=== PATIENT | male | born 1980 | race Caucasian/White ===

== ENCOUNTER 2016-08-19 17:24 | Inpatient (IN) | payer OTHER ==
[~2016-08-19] VITALS: Ht 177.8 cm; Wt 98.9 kg
[~2016-08-19 17:24] MED LIST: DESFLURANE 15 MIN ONE
[2016-08-19 18:47] VITALS: BP 101/67; PULSE 127; RESP 34
[2016-08-19] MEDS ORDERED: morphine 2 MG INJ IV ONE (19:00)
[2016-08-19] MEDS ORDERED: ONDANSETRON 4 MG INJ IV PRN (19:30)
[2016-08-19] MEDS ORDERED: NACL 0.9% 3 ML SYG IV SCH (19:30)
[2016-08-19] MEDS: DEXTROSE 5%-0.45% NACL 1,000 ML IV SCH (19:51)
[2016-08-19 20:00] VITALS: BP 101/64; RESP 20; Ht 177.8 cm; Wt 98.9 kg
[2016-08-19] MEDS: HYDROCODONE/APAP (7.5/325) TAB PO PRN (21:37)
[2016-08-19] MEDS: morphine 2 MG INJ IV PRN (22:48)
[2016-08-20] VITALS (13 sets, daily range): BP systolic 108–201; BP diastolic 53–127; PULSE 133–158; RESP 15–29
--- NOTE | 2016-08-20 03:17 | HP ---
DATE OF ADMISSION: 08/19/2016 The patient was seen and examined by me at 9:45 p.m. on 08/20/2014. CHIEF COMPLAINT: This is a 36-year-old male transferred from outside hospital for abdominal pain an d pancreatitis, nausea, vomiting. HISTORY OF PRESENT ILLNESS: A 36-year-old male with past medical history of marijuana use and prior substance abuse, questionable cirrhosis with prior ascites who presented to outside hospital at [facility] earlier today with complaints of epigastric pain. He states that pain has been radiating aroun d his abdomen, his chest and to his back and he has had it for the last couple of weeks. He has had nausea and vomiting, questionable bloody vomiting, black in color mixed with food, denies any lower GI bleeding, no fevers or chills. No shortness of breath, no chest pain. When he presented to the outside hospital, he had a CT scan of abdomen and pelvis performed that showed signs of pancreatiti s and his lipase was elevated as well and there was also findings of minimal diverticulosis with asc ites and the stomach was distended with fluid. The patient was given pain medications before being transferred over here. PAST MEDICAL HISTORY: As stated above. ALLERGIES: NO KNOWN DRUG ALLERGIES. MEDICATIONS AT HOME: 1. Pepcid 40 mg. 1. [place] 5/325. 3. Zofran 4 mg. PAST SURGICAL HISTORY: Unknown. SOCIAL HISTORY: Former history of drug abuse including methamphetamine, cocaine, and crack and also smokes cigarettes daily and also smokes marijuana daily. He apparently drinks occasionally as well . FAMILY HISTORY: Unknown. PHYSICAL EXAMINATION: VITAL SIGNS: Today, T-max 98.2, pulse 119, respirations 23, blood pressure 120/97, saturating at 98 % on room air. GENERAL: The patient is lying in bed in no acute distress. HEENT: Pupils equal, round, react to light. Extraocular muscles intact. NECK: Supple, no thyromegaly. LUNGS: Clear to auscultation bilaterally. CARDIOVASCULAR: S1, S2 heard. No rubs or gallops. ABDOMEN: Tenderness to palpation in epigastric area. There is some guarding but no rebound, nondis tended. Normal bowel sounds. MUSCULOSKELETAL: No lower extremity edema bilaterally. NEUROLOGIC: No focal deficits. LABORATORIES: The patient had a CBC performed with incomplete data. The hemoglobin was 12.6, hemat ocrit 36.8, platelets of 480. On his comprehensive metabolic panel, there was an elevated lipase le estrada and the glucose was 137 and the creatinine was 0.91. WBC was 11.4. LFTs were normal. IMAGING: Again, CT of abdomen and pelvis showed a small hiatal hernia, stomach was distended with f luid. There was ascites in the abdomen and pelvis, and minimal diverticulosis and symptom cause cou ld have an element of pancreatitis in it. ASSESSMENT AND PLAN: A 36-year-old male coming in with abdominal pain and vomiting and nausea with signs of pancreatitis and possible cirrhosis with ascites. 1. Abdominal pain again secondary to pancreatitis and possible cirrhosis with ascites. Will keep t he patient n.p.o., give him IV fluids, give him antiemetic medications as well. Get a gastroenterol ogy consult. Monitor vital signs very carefully. 2. For history of substance abuse, will check an ethanol level, drug screen, monitor for signs of d elirium tremens. Continue IV fluids as well. 2. Smoking history. Need to educate the patient about smoking cessation. 3. Gastrointestinal prophylaxis, proton pump inhibitor. 4. Deep venous thrombosis prophylaxis. We will add SCDs. Dictated By: WILLIAM ESTEVES Conf#: [id number] DID#: [id number]
[2016-08-20] MEDS: DEXTROSE 5%-0.45% NACL 1,000 ML IV SCH ×2 (03:19→05:54)
[2016-08-20] MEDS: CHLORDIAZEPOXIDE 25 MG CAP PO SCH ×3 (04:21→23:08)
[2016-08-20] MEDS: morphine 2 MG INJ IV PRN (04:38)
[2016-08-20 05:43] LABS: ADD SCAN DIFF NO
[2016-08-20 05:51] LABS: ABNORMAL IP MESSAGE 1; BASOPHILS % 0.1 % (0.0-2.0); HEMATOCRIT 50.2 % (42.0-52.0); HEMOGLOBIN 17.2 g/dl (14.0-18.0); LYMPHOCYTES # 0.8 10^3/ul (0.8-2.9); MEAN CORPUSCULAR HEMOGLOBIN 30.9 pg (29.0-33.0); MEAN CORPUSCULAR HGB CONC 34.3 g/dl (32.0-37.0); MEAN CORPUSCULAR VOLUME 90.3 fl (82.0-101.0); MONOCYTE # 0.5 10^3/ul (0.3-0.9); NEUTROPHIL # 14.4 10^3/ul (1.6-7.5); PLATELET COUNT 678 10^3/UL (140-415); RED BLOOD COUNT 5.56 10^6/ul (4.70-6.10); RED CELL DISTRIBUTION WIDTH 13.3 % (11.5-14.5); WHITE BLOOD COUNT 15.8 10^3/ul (4.8-10.8)
[2016-08-20] MEDS ORDERED: PANTOPRAZOLE 40 MG INJ IV SCH (06:00)
[2016-08-20 06:11] LABS: ALBUMIN 3.9 g/dl (3.3-4.9)
[2016-08-20 06:12] LABS: POTASSIUM 5.8 mmol/L (3.5-5.1)
[2016-08-20 06:14] LABS: ALBUMIN/GLOBULIN RATIO 1.14; BILIRUBIN,INDIRECT 0.6 mg/dl (0-1.1); BILIRUBIN,TOTAL 0.6 mg/dl (0.2-1.3); CREATININE 3.73 mg/dl (0.61-1.24); TOTAL PROTEIN 7.3 g/dl (6.1-8.1)
[2016-08-20 06:15] LABS: CALCIUM 9.1 mg/dl (8.4-10.2); CHOL/HDL RATIO 1.5 RATIO; MAGNESIUM 2.8 mg/dl (1.7-2.5)
[2016-08-20 06:22] LABS: T3 UPTAKE 37.7 % (23.5-40.5)
[2016-08-20 06:28] LABS: NEUTROPHILS % 91.6 % (39.0-77.0)
--- NOTE | 2016-08-20 08:31 | CONS ---
Date/Time of Note Date/Time of Note DATE: 08/20/16 TIME: 08:22 Assessment/Plan Assessment/Plan Additional Assessment/Plan Abdominal pain/nausea/vomiting Coffee-ground emesis Evaluate GI bleed versus chronic iron deficiency vs other etiology Stool OB, if positive strongly recommend EGD Monitor H&H every 8 hours, transfuse 2 units for hemoglobin less than 7.[address] abdomen: Completed at [facility]. Notes mild diverticulosis and minimal ascites. Continue PPI twice daily EGD tomorrow, pt advised of R/B/A of procedure and provides informed consent to proceed Acute kidney injury Nephrology follow Avoid nephrotoxic medication Tobacco use Management per Primary Encourage abstinence Marijuana use Management per Primary Encourage moderation Further recommendations depend on clinical course Consultation Date/Type/Reason Admit Date/Time Aug 19, 2016 at 18:21 Type of Consultation: Gastroenterology Reason for Consultation Abdominal pain Hx of Present Illness Mr. Ismael Goldman is a 36 YO M that originally presented to [facility] with complaints of epigastric pain, nausea, vomiting with coffee ground emesis, melena stools, chest pain, and dehydration x 2 weeks. He states that symptoms started to worsen yesterday to the point it interrupted his sleep and he was short of breath. He reports intermittent chills x 1 day. Pt reports using an unknown OTC pain reliever x 2 weeks ago. Pt denies diarrhea, new prescribed medication, sick contacts, travel outside [place], and previous episode. Mr. Goldman smokes 1 pack a day of tobacco and smokes marijuana once every two to three weeks. Pt denies EtoH consumption. Pt denies any comorbid conditions but also reports not being evaluated by a PCP. Pt reports being a heavy drinker but has been sober for the last 2 - 3 years. Social History Alcohol Use: sober (For the last 2-3 years) Smoking Status: Current every day smoker Drug Use: marijuana (Once every 2-3 week) Exam/Review of Systems Vital Signs Vitals Vital Signs Date Time Temp Pulse Resp B/P Pulse Ox O2 Delivery O2 Flow Rate FiO2 08/20/16 07:57 97.7 127 24 112/53 94 08/19/16 18:47 Room Air Intake and Output 08/19/16 08/19/16 08/20/16 15:00 23:00 07:00 Intake Total 1000 ml Output Total 0 ml Balance 1000 ml Exam Constitutional: alert, oriented, well developed Psych: nl mood/affect Head: normocephalic Eyes: EOMI, nl conjunctiva, nl lids ENMT: nl external ears & nose, nl lips & teeth, nl nasal mucosa & septum Respiratory: clear to auscultation, normal air movement Cardiovascular: regular rate and rhythm Gastrointestinal: soft, diffusely tender Musculoskeletal: nl extremities to inspection Neurological: COMMISSIONING SPECIALIST II-XII intact Results Result Diagram: 08/20/1652208/20/16522 Results 24 hrs Laboratory Tests Test 08/20/16 05:23 Alanine Aminotransferase (ALT/SGPT) 21 Albumin 3.9 Albumin/Globulin Ratio 1.14 Alkaline Phosphatase 66 Anion Gap 21 H Aspartate Amino Transf (AST/SGOT) 22 Basophils # 0.0 Basophils % 0.1 Blood Urea Nitrogen 28 H Calcium Level 9.1 Carbon Dioxide Level 22 Chloride Level 100 Cholesterol Level 80 L Cholesterol/HDL Ratio 1.5 Creatinine 3.73 H Direct Bilirubin 0.00 Eosinophils # 0.0 Eosinophils % 0.0 Ethyl Alcohol Level < 10.0 Free Thyroxine Index 3.73 Globulin 3.40 H Glucose Level 132 HDL Cholesterol 52 Hematocrit 50.2 Hemoglobin 17.2 Hemoglobin A1c 5.2 Indirect Bilirubin 0.6 LDL Cholesterol, Calculated 22 Lipase < 10 L Lymphocytes # 0.8 Lymphocytes % 5.0 L Magnesium Level 2.8 H Mean Corpuscular Hemoglobin 30.9 Mean Corpuscular Hemoglobin Concent 34.3 Mean Corpuscular Volume 90.3 Mean Platelet Volume 10.0 Monocytes # 0.5 Monocytes % 3.0 Neutrophils # 14.4 H Neutrophils % 91.6 H Nucleated Red Blood Cells # 0.0 Nucleated Red Blood Cells % 0.0 Phosphorus Level 4.0 Platelet Count 678 H Potassium Level 5.8 H Red Blood Count 5.56 Red Cell Distribution Width 13.3 Sodium Level 137 Thyroxine (T4) 9.9 Total Bilirubin 0.6 Total Protein 7.3 Triglycerides Level 29 Triiodothyronine (T3) Uptake 37.7 White Blood Count 15.8 H Medications Medications Current Medications Dextrose/Sodium Chloride (D5-1/2ns) 1,000 ml @ 125 mls/hr Q8H IV Last administered on 08/20/16t 05:54; Admin Dose 125 MLS/HR; Start 08/19/16 at 19:19 Ondansetron HCl (Zofran Inj) 4 mg Q6H PRN IV NAUSEA AND/OR VOMITING; Start at 19:30 Morphine Sulfate (morphine) 2 mg Q4H PRN IV SEVERE PAIN LEVEL 7-10 Last administered on 08/20/16 04:38; Admin Dose 2 MG; Start 08/19/16 at 19:30 Pantoprazole (Protonix Iv) 40 mg DAILY@06 IV Last administered on 08/20/16 05: 53; Admin Dose 40 MG; Start 08/20/16 at 06:00 Acetaminophen/ Hydrocodone Bitart ([place] (7.5-325)) 1 tab Q6H PRN PO PAIN Last administered on 08/19/16 21:37; Admin Dose 1 TAB; Start 08/19/16 at 21:30 Chlordiazepoxide 25 mg 25 mg TID PO Last administered on 08/20/16 04:21; Admin Dose 25 MG; Start 08/20/16 at 04:30 Multivitamins/ Thiamine HCl/ Folic Acid/Sodium Chloride (Mvi-12 Adult/ Vitamin B1/Folic Acid/NS) 1,011.2 ml @ 125 mls/ hr DAILY@09 IVPB ; Start 08/20/16 at 09 :00 MARILYN TA MD Aug 20, 2016 08:31
[2016-08-20] MEDS: HYDROCODONE/APAP (7.5/325) TAB PO PRN (09:34)
[2016-08-20] MEDS: SOD CHLORIDE 0.9% 1,000 ML IV SCH ×2 (10:00→18:00)
--- NOTE | 2016-08-20 10:09 | RADRPT ---
PROCEDURE: Retroperitoneal US. CLINICAL INDICATION: Renal insufficiency TECHNIQUE: Multiple sonographic images of the kidneys and retroperitoneum were obtained. The imag es were reviewed on a PACS workstation. COMPARISON: No prior studies are available for comparison. FINDINGS: The kidneys are normal in size, contour, cortical thickness. There is slightly increased echogenicity of the kidneys. There is a small amount of ascites. The right kidney measures 9.4 cm. The left kidney measures 9.8 cm. No kidney stones are visualized. There is no evidence for hydronephrosis. The urinary bladder is not visualized. RPTAT: AA IMPRESSION: Slightly echogenic kidneys, consistent with medical renal disease. No evidence of hydronephrosis. Small amount of ascites. .Wm Phelan MD, Date Time Electronically viewed and signed by .Wm Phelan MD, MD on 08/20/2016 10:09 .S/
--- NOTE | 2016-08-20 10:16 | CONS ---
DATE OF ADMISSION: 08/19/2016 DATE OF CONSULTATION: 08/20/2016 TYPE OF CONSULTATION: Nephrology. REASON FOR CONSULTATION: Acute kidney injury. REQUESTING PHYSICIAN: Tomas Wyatt MD HISTORY OF PRESENT ILLNESS: This is a 36-year-old male with a past medical history of polysubstance abuse, marijuana use, history of heavy alcohol use, who was transferred to [facility] from [place] with episodes of abdominal pain. The patient states that his history began approx imately 2 weeks ago when he started having abdominal pain with intermittent episodes of vomiting ass ociated with some diarrhea. The patient felt that he was having food poisoning. The patient also n oted that his vomitus was black and he denied any complaint of black stools. The patient during thi s time was having drug abuse including possible cocaine and methamphetamine. The patient is not ful ly aware of all substances he was taking. He denies having IV drug use. During this course of the last 2 weeks, the patient's abdominal pain, nausea and vomiting progressively worsened. As a result , he came to [facility]. At [place], the patient was noted to be tachycardic and diapho retic. He had a CT scan of the abdomen and pelvis which showed findings of distended fluid in the a bdomen, unremarkable liver, unremarkable gallbladder, kidneys and adrenal glands appeared normal. S mall hiatal hernia noted and ascites in the abdomen and pelvis. The patient after given IV fluids w as transferred to [facility]. Overnight, the patient has remained diaphoretic, co ntinues to have intermittent episodes of abdominal pain. In terms of the patient's renal history, the patient's initial creatinine at outside hospital at [facility] was noted to be 0.9 mg/dL. The patient's labs this morning showed a creatinine of 3.73 mg/dL a nd potassium 5.8. The patient is also noted to have minimal urinary output over the last 12 hours. The patient denies any frothy urine, any rashes, any petechiae. Denies any muscle pain. As stated above, the patient does complain of about emesis, questionable hematemesis and dark stools. PAST MEDICAL HISTORY: History of polysubstance abuse. ALLERGIES: NO KNOWN DRUG ALLERGIES. MEDICATIONS: The patient's medications are: 1. Pepcid. 2. [place]. PAST SURGICAL HISTORY: None. SOCIAL HISTORY: Positive for methamphetamine, cocaine, crack use. FAMILY HISTORY: Unknown. REVIEW OF SYSTEMS: A 14-point review of systems was conducted. Pertinent positives in the HPI, oth erwise negative. PHYSICAL EXAMINATION: VITAL SIGNS: Blood pressure 112/53, respirations 24, pulse 127, temperature 97.7. HEENT: Head is normocephalic. Pupils are reactive to light. NECK: Supple. HEART: Tachycardic. LUNGS: Show diminished breath sounds at base. ABDOMEN: Soft, positive tenderness to palpation, positive rebound, guarding. EXTREMITIES: Negative for clubbing, cyanosis. No edema. DERMATOLOGIC: No rashes. MUSCULOSKELETAL: No joint effusions. NEUROLOGIC: No focal deficits. LABORATORY DATA: Shows sodium 137, potassium 5.8, chloride 100, BUN 28, creatinine 3.73, magnesium 2.8. White count 15.8, hemoglobin 17.2, hematocrit 40.2, platelet count 678. Serum alcohol levels are negative. ASSESSMENT AND PLAN: This is a 36-year-old male who presents with: 1. Oligoanuric acute kidney injury with previous baseline creatinine of 0.9 mg/dL. Etiology of acu te kidney injury is unclear, worrisome for possible acute tubular necrosis due to nephrotoxic exposu re from cocaine, methamphetamine. Other possibilities need to be ruled out is obstruction with chec екатерина a stat renal ultrasound. We will check a CK level to rule out rhabdomyolysis. The possibility of an acute glomerulonephritis is also a consideration given patient's recent history of diarrhea, nausea, vomiting. Plan is to do a full evaluation. We will check a UA with microanalysis. We will check urine electrolytes. We will check a stat renal ultrasound to rule out obstruction. We will place a Miranda catheter. If patient has any evidence of an active sediment, we will check serologies . At this point, we will aggressively hydrate the patient with normal saline at 125 mL/hour. We wi ll repeat a renal panel. If the patient's renal panel should further decline and/or if the hyperkal emia should worsen, would consider starting urgent hemodialysis for solute clearance. We will cabrera nue to monitor I's and O's closely. We will also check a urine tox screen. Otherwise, continue sup portive care, renally dose meds, avoid nephrotoxins. 2. Hyperkalemia. Etiology is likely secondary to acute kidney injury. Plan at this point is to re peat a BMP. If the patient remains hyperkalemic, we will consider starting renal replacement therap y. We will otherwise give temporizing measures of calcium gluconate, dextrose and insulin. 3. Mineral bone disorder. We will monitor calcium and phosphorus levels. 4. Abdominal pain. Etiology unclear, may be secondary to gastroenteritis versus peptic ulcer disea se versus other. The patient's CT scan showed no acute findings. Questionable pancreatitis. Cabrera nue aggressive IV hydration and follow up with GI for further recommendations. Continue PPI. 5. Leukocytosis. Etiology may be secondary to systemic inflammatory response syndrome versus infec tious. May consider empiric antibiotics. We will check cultures and monitor. 6. Polysubstance abuse. The patient is on banana bag and Librium. We will continue to monitor for signs of withdrawal. 7. Tachycardia, possibly related to pain, withdrawal. Continue to monitor closely. Continue manag ement per primary team. Thank you, Dr. Wyatt, for this interesting consultation. It will be a pleasure to follow the patient with you throughout the hospital course. Dictated By: SILVIA HERNANDEZ/TOMMY Conf#: [id number] DID#: [id number]
[2016-08-20] MEDS: MULTIVITAMINS 10 ML, THIAMINE 100 MG, FOLIC ACID 1 MG in SOD CHLORIDE 0.9% 1,000 ML IVPB SCH (10:22)
[2016-08-20 12:43] LABS: CREATININE 4.93 mg/dl (0.61-1.24)
[2016-08-20 12:44] LABS: CALCIUM 8.9 mg/dl (8.4-10.2)
[2016-08-20 13:06] LABS: ADD UMIC YES; URINE BILIRUBIN (Dip) 1+ (NEGATIVE); URINE BLOOD (Dip) TRACE (NEGATIVE); URINE COLOR YELLOW (YELLOW); URINE GLUCOSE (Dip) NEGATIVE (NEGATIVE); URINE KETONES (Dip) TRACE (NEGATIVE); URINE LEUKOCYTE ESTERASE (Dip) NEGATIVE (NEGATIVE); URINE NITRITE (Dip) NEGATIVE (NEGATIVE); URINE TOTAL PROTEIN (Dip) 2+ (NEGATIVE); URINE UROBILINOGEN (Dip) 0.2 E.U./dL (0.1-1.0)
[2016-08-20 13:25] LABS: CANNABINOIDS Negative (NEGATIVE)
[2016-08-20 13:26] LABS: BARBITURATES Negative (NEGATIVE); BENZODIAZEPINES Negative (NEGATIVE); ICTOTEST NEGATIVE (NEGATIVE); MUCUS,URINE MODERATE; URINE RBCS 0-2 /HPF (0)
[2016-08-20 13:27] LABS: BACTERIA,URINE FEW; COCAINE Negative (NEGATIVE); OPIATES Negative (NEGATIVE)
[2016-08-20 14:03] LABS: POTASSIUM 5.2 mmol/L (3.5-5.1)
[2016-08-20 14:05] LABS: CREATININE 5.23 mg/dl (0.61-1.24)
[2016-08-20 14:06] LABS: CALCIUM 8.9 mg/dl (8.4-10.2)
--- NOTE | 2016-08-20 14:20 | RADRPT ---
PROCEDURE: XR Chest. CLINICAL INDICATION: Shortness of breath. TECHNIQUE: Single frontal view. COMPARISON: None. FINDINGS: There is mild atelectasis at the lung bases and there are low lung volumes. The lungs are otherwise clear. The heart size is normal. There is no pleural effusion. There is no pneumothorax. There is possible free air under the diaphragm. IMPRESSION: 1. Mild atelectasis at the lung bases. 2. Low lung volumes. 3. Possible free air under the diaphragm. Correlation with CT scan of the abdomen and pelvis advis ed. Call report: A call report of the findings was made to Dr. Ruiz on 08/20/2016 at 1419 hours. RPTAT: QQ .Amrik Polk MD, MD Date Time Electronically viewed and signed by .Amrik Polk MD, MD on 08/20/2016 14:20 .R/
[2016-08-20] MEDS ORDERED: SOD CHLORIDE 0.9% 1,000 ML IV ONE (14:30)
[2016-08-20] MEDS ORDERED: LIDOCAINE 1% (MDV) 20 ML INJ SC ONE (14:30)
[2016-08-20 15:32] LABS: ADD UMIC YES; URINE BILIRUBIN (Dip) 2+ (NEGATIVE); URINE BLOOD (Dip) 2+ (NEGATIVE); URINE COLOR DK. YELLOW (YELLOW); URINE GLUCOSE (Dip) NEGATIVE (NEGATIVE); URINE KETONES (Dip) NEGATIVE (NEGATIVE); URINE LEUKOCYTE ESTERASE (Dip) NEGATIVE (NEGATIVE); URINE NITRITE (Dip) NEGATIVE (NEGATIVE); URINE TOTAL PROTEIN (Dip) 4+ (NEGATIVE); URINE UROBILINOGEN (Dip) 1.0 E.U./dL (0.1-1.0)
--- NOTE | 2016-08-20 15:45 | PN ---
Date/Time of Note Date/Time of Note DATE: 08/20/16 TIME: 15:31 Assessment/Plan VTE Prophylaxis VTE Prophylaxis Intervention: SCD's Lines/Catheters [facility] [place] Assessment/Plan Chief Complaint/Hosp Course 1. Abdominal pain secondary to gastric ulcers or severe gastritis versus possible rupture within the GI tract Chest x-ray does show free air under the diaphragm, have ordered a KUB and requested a surgical consult GI consult appreciated, at this time plans for EGD, continue PPI Transfer to telemetry 2. Acute kidney injury Nephrology consultation appreciated, continue IV fluids, patient will need dialysis at this time 3. Smoking history Advise smoking cessation 4. Substance abuse Toxicology is positive for amphetamines 5. SIRS reactive versus a reaction to an intra-abdominal process Continue Zosyn, transfer telemetry Prophylaxis: PPI and SCDs Problems: Subjective 24 Hr Interval Summary Gastrointestinal: pain Exam/Review of Systems Vital Signs Vitals Vital Signs Date Time Temp Pulse Resp B/P Pulse Ox O2 Delivery O2 Flow Rate FiO2 08/20/16 07:57 97.7 127 24 112/53 94 08/19/16 18:47 Room Air Intake and Output 08/19/16 08/19/16 08/20/16 15:00 23:00 07:00 Intake Total 1000 ml Output Total 0 ml Balance 1000 ml Exam Constitutional: alert, oriented Respiratory: clear to auscultation Cardiovascular: regular rate and rhythm Gastrointestinal: soft, tender, No distended Musculoskeletal: nl extremities to inspection Results Result Diagram: 08/20/16 0523 08/20/16 1345 Results 24 hrs Laboratory Tests Test 08/20/16 05:23 08/20/16 09:30 08/20/16 10:25 08/20/16 12:15 Alanine Aminotransferase (ALT/SGPT) 21 Albumin 3.9 Albumin/Globulin Ratio 1.14 Alkaline Phosphatase 66 Anion Gap 21 H 21 H Aspartate Amino Transf (AST/SGOT) 22 Basophils # 0.0 Basophils % 0.1 Blood Urea Nitrogen 28 H 36 H Calcium Level 9.1 8.9 Carbon Dioxide Level 22 21 Chloride Level 100 101 Cholesterol Level 80 L Cholesterol/HDL Ratio 1.5 Creatinine 3.73 H 4.93 #H Direct Bilirubin 0.00 Eosinophils # 0.0 Eosinophils % 0.0 Ethyl Alcohol Level < 10.0 Free Thyroxine Index 3.73 Globulin 3.40 H Glucose Level 132 113 HDL Cholesterol 52 Hematocrit 50.2 Hemoglobin 17.2 Hemoglobin A1c 5.2 Indirect Bilirubin 0.6 LDL Cholesterol, Calculated 22 Lipase < 10 L Lymphocytes # 0.8 Lymphocytes % 5.0 L Magnesium Level 2.8 H Mean Corpuscular Hemoglobin 30.9 Mean Corpuscular Hemoglobin Concent 34.3 Mean Corpuscular Volume 90.3 Mean Platelet Volume 10.0 Monocytes # 0.5 Monocytes % 3.0 Neutrophils # 14.4 H Neutrophils % 91.6 H Nucleated Red Blood Cells # 0.0 Nucleated Red Blood Cells % 0.0 Phosphorus Level 4.0 Platelet Count 678 H Potassium Level 5.8 H 6.0 H Red Blood Count 5.56 Red Cell Distribution Width 13.3 Sodium Level 137 137 Thyroxine (T4) 9.9 Total Bilirubin 0.6 Total Protein 7.3 Triglycerides Level 29 Triiodothyronine (T3) Uptake 37.7 White Blood Count 15.8 H Urine Amphetamines Screen POSITIVE Urine Bacteria FEW Urine Barbiturates Negative Urine Benzodiazepines Screen Negative Urine Bilirubin 1+ H Urine Cannabinoids Negative Urine Clarity CLEAR Urine Cocaine Screen Negative Urine Color YELLOW Urine Epithelial Cells FEW Urine Glucose NEGATIVE Urine Hemoglobin TRACE Urine Ictotest NEGATIVE Urine Ketones TRACE Urine Leukocyte Esterase NEGATIVE Urine Microscopic RBC 0-2 Urine Microscopic WBC 2-5 Urine Mucus MODERATE Urine Nitrite NEGATIVE Urine Opiates Screen Negative Urine Random Creatinine 353.27 Urine Random Sodium 84 Urine Specific Stella 1.015 Urine Total Protein 187.0 H Urine Urobilinogen 0.2 E.U./dL Urine pH 6.5 Creatinine Kinase MB (Mass) 1.11 Creatine Kinase 64 Test 08/20/16 13:45 08/20/16 14:55 Anion Gap 24 H Blood Urea Nitrogen 36 H Calcium Level 8.9 Carbon Dioxide Level 18 L Chloride Level 102 Creatinine 5.23 H Glucose Level 114 Potassium Level 5.2 H Sodium Level 139 Lactic Acid Level 5.1 *H Medications Medications Current Medications Ondansetron HCl (Zofran Inj) 4 mg Q6H PRN IV NAUSEA AND/OR VOMITING; Start at 19:30 Morphine Sulfate (morphine) 2 mg Q4H PRN IV SEVERE PAIN LEVEL 7-10 Last administered on 08/20/16t 04:38; Admin Dose 2 MG; Start 08/19/16 at 19:30 Pantoprazole (Protonix Iv) 40 mg DAILY@06 IV Last administered on 08/20/16 05: 53; Admin Dose 40 MG; Start 08/20/16 at 06:00 Acetaminophen/ Hydrocodone Bitart ([place] (7.5-325)) 1 tab Q6H PRN PO PAIN Last administered on 08/20/16 09:34; Admin Dose 1 TAB; Start 08/19/16 at 21:30 Chlordiazepoxide 25 mg 25 mg TID PO Last administered on 08/20/16 12:39; Admin Dose 25 MG; Start 08/20/16 at 04:30 Multivitamins 10 ml/Thiamine HCl 100 mg/Folic Acid 1 mg/Sodium Chloride 1,011.2 ml @ 125 mls/ hr DAILY@09 IVPB Last administered on 08/20/16 10:22; Admin Dose 125 MLS/HR; Start 08/20/16 at 09:00 Sodium Chloride 1,000 ml @ 125 mls/hr Q8H IV ; Start 08/20/16 at 10:00 Piperacillin Sod/ Tazobactam Sod (Zosyn 2.25gm/ 50ml (Pmx)) 50 ml @ 200 mls/hr Q12 IVPB ; Start 08/20/16 at 16:00 BAHMAN FISH Aug 20, 2016 15:42
[2016-08-20 15:53] LABS: ICTOTEST NEGATIVE (NEGATIVE)
[2016-08-20 15:54] LABS: BACTERIA,URINE MANY; MUCUS,URINE MANY; SQUAMOUS EPITHELIAL CELL,UR MODERATE
[2016-08-20] MEDS: PIPER-TAZO 2.25 GM (PMX) 50 ML IVPB SCH (16:00)
--- NOTE | 2016-08-20 17:21 | RADRPT ---
PROCEDURE: XR Abdomen. CLINICAL INDICATION: Abdomen pain. TECHNIQUE: AP supine abdomen x-ray. COMPARISON: None. FINDINGS: The bowel gas pattern is normal with no evidence of obstruction. There is free air under the diaphragm consistent with perforated hollow viscus. There are no abnormal calcifications overlying the urinary tracts. The osseus structures are unremarkable. IMPRESSION: 1. Intraperitoneal free air consistent with perforated hollow viscus. Call report: A call report of the findings was made to Dr. Webb and Dr. Ruiz on 08/20/2016 at 1710 hours. RPTAT: QQ .Amrik Polk MD, MD Date Time Electronically viewed and signed by .Amrik Polk MD, on 08/20/2016 17:21 .R/
[2016-08-20 17:28] LABS: INR 1.39; PROTIME 17.1 Sec (12.2-14.2); PT RATIO 1.3
[2016-08-20] MEDS ORDERED: BARIUM SULF 2% 450 ML BTL (BERRY SMOOTHIE) PO ONE (17:30)
--- NOTE | 2016-08-20 18:50 | RADRPT ---
PROCEDURE: XR Chest. CLINICAL INDICATION: Check PICC line position. TECHNIQUE: Single frontal view. COMPARISON: 08/20/2016. 1237 hours. FINDINGS: There is a left arm PICC line with the tip in the upper right atrium, in satisfactory position. The re is atelectasis at the lung bases and low lung volumes, slightly worse than seen previously. The lungs are otherwise clear. The heart size is normal. There is no pleural effusion or pneumothorax. There is a large amount of free air under the diaphragm. IMPRESSION: 1. Satisfactory position of left arm PICC line. 2. Worse appearance of the lung bases and low lung volumes. 3. Large amount of free air under the diaphragm. The referring physician is aware. RPTAT: QQ .Amrik Polk MD, Date Time Electronically viewed and signed by .Amrik Polk MD, MD on 08/20/2016 18:50 .R/
[2016-08-20] MEDS ORDERED: SOD CHLORIDE 0.9% 100 ML ONE (19:27)
[2016-08-20] MEDS ORDERED: ETOMIDATE 20 MG INJ ONE (19:43)
[2016-08-20] MEDS ORDERED: SUCCINYLCHOLINE CHLORIDE 100 MG/5 ML SYG IV ONE (19:43)
[2016-08-20] MEDS ORDERED: PHENYLephrine (100 MCG/ML) 5ML SYG ONE (19:43)
[2016-08-20] MEDS ORDERED: NORepinephrine 4 MG INJ ONE ×2 (20:03→20:27)
--- NOTE | 2016-08-20 20:16 | CONS ---
DATE OF ADMISSION: 08/19/2016 DATE OF CONSULTATION: REASON FOR CONSULTATION: Perforated viscus. HISTORY OF PRESENT ILLNESS: The patient is a 36-year-old male who presents with a 2-week illness of nonspecific abdominal pain. The pain became unbearable today and he presented here. Imaging showe d pneumoperitoneum and surgical consultation is requested in that regard. Of note is the fact that the patient's original presentation was to [facility] with epigastric pain, nausea and vomitin g as well as hemetemesis. The patient is a 1 pack a day smoker and admits to being a heavy drinker but has not been abusing alcohol for over 2 to 3 years. He was also noted to have an elevated white blood cell count. REVIEW OF SYSTEMS: HEAD, EARS, EYES, NOSE, THROAT: Unremarkable. PULMONARY: No previous history of shortness of breath, asthma or pneumonia. CARDIAC: No history of chest pain or arrhythmia. ABDOMEN: As in the HPI. EXTREMITIES: Unremarkable. OUTPATIENT MEDICATIONS: No prescription medications. The patient did take an [id number] pain pill, but he does not remember what. ALLERGIES: NONE. PHYSICAL EXAMINATION: GENERAL: The patient is diaphoretic 36-year-old male who is in moderate abdominal discomfort. HEAD, EARS, EYES, NOSE, AND THROAT: Within normal limits. Sclerae nonicteric. LUNGS: Clear. ABDOMEN: Diffusely tender and rigid in the upper abdomen. EXTREMITIES: Unremarkable. LABORATORY DATA: Patient's hematocrit is 50.2 with a white count of 15,800 and a left shift with 91 polys. BUN, glucose, and electrolytes are significant for a BUN of 36 and a creatinine of 5.23. H is lactic acid level is 5.1. INR is 1.39. IMAGING: Pneumoperitoneum. IMPRESSION: Patient likely has a perforated duodenal ulcer. PLAN: The patient will require immediate operative intervention. The procedure and risks have been outlined to the patient as well as his parents, who have a reasonable understanding of the nature o f severity of the illness and agree to the proposed plan of therapy as outlined. Dictated By: TIFFANI ALCANTAR/TOMMY Conf#: [id number] DID#: [id number]
[2016-08-20] MEDS ORDERED: NA BICARBONATE 8.4% 50 ML SYG ONE (20:42)
[2016-08-20] MEDS ORDERED: PROVENTIL HFA 6.7GM INHALER ONE (21:06)
[2016-08-20] MEDS ORDERED: ROCURONIUM 50 MG INJ ONE (21:21)
[2016-08-20] MEDS ORDERED: metroNIDAZOLE 500 MG/NS (PMX) 100 ML IVPB ONE (21:21)
[2016-08-20] MEDS ORDERED: CEFAZOLIN 1 GM INJ ONE (21:21)
[2016-08-20] MEDS ORDERED: OXYCODONE/ACETAMINOPHEN (5/325) TAB PO PRN ×2 (21:30)
[2016-08-20] MEDS ORDERED: morphine 2 MG INJ IV PRN (21:30)
[2016-08-20] MEDS ORDERED: ONDANSETRON 4 MG INJ IV PRN (21:30)
[2016-08-20] MEDS ORDERED: MIDAZOLAM 1 MG/ML 2 ML INJ ONE (21:32)
[2016-08-20] MEDS ORDERED: metroNIDAZOLE 500 MG/NS (PMX) 100 ML IVPB SCH (22:00)
[2016-08-20] MEDS ORDERED: NORepinephrine 8MG/250 ML (PMX 250 ML IV SCH (22:00)
--- NOTE | 2016-08-20 22:23 | OPR ---
DATE OF OPERATION: 08/20/2016 PREOPERATIVE DIAGNOSIS: Pneumoperitoneum with peritonitis. OPERATION PERFORMED: 1. Exploratory laparotomy. 2. Oversew of perforated antral ulcer and placement of drain. 3. Right femoral dual-lumen vascath. POSTOPERATIVE DIAGNOSIS: Perforated antral ulcer with 3 liters of enteric content in the abdomen, and tense pneumoperitoneum SURGEON: Tiffani Webb MD ANESTHESIA: General. OPERATIVE REPORT: After satisfactory general anesthesia was achieved, the abdomen and both groins were prepped and draped. The patient is in impending renal failure, so a dual-lumen vascath was placed in the right femoral vein. This area was prepped and draped. A needle was inserted easily and atraumatically into the right femoral vein. A guidewire was then threaded through the needle into the deep venous system and vena cava. A passage dilator was passed over the guidewire, and a second larger passage dilator was passed over the guidewire, establishing a tract. A dual-lumen Devan catheter was inserted for its full length. Each port was aspirated, yielding venous blood and flushed with saline solution. DESCRIPTION OF PROCEDURE: The catheter was secured to skin via its plastic attachments using 2 sutures of 2-0 silk. Next, the abdomen was prepped and draped. The abdomen was entered through an upper vertical midline incision. Upon entering the peritoneum, a tense pneumoperitoneum was decompressed. There was greenish purulent fluid throughout the abdomen. Three liters of this fluid were suctioned off. Abdominal exploration revealed the source of this fluid to be a perforation of a gastric antral ulcer at the lesser curvature. This perforation was cleaned circumferentially and then closed primarily with interrupted 2-0 silk sutures. This first layer of closure was reinforced with a second layer of seromuscular 2-0 silk sutures. These sutures were used to hold an omental patch in place, which completed the oversew and pexy of this ulcer. Next, the abdomen was irrigated with approximately 10 liters of saline until irrigant finally returned clear. At the beginning of the procedure, all 4 quadrants of the abdomen had purulent enteric fluid. At the completion of the procedure, through a separate stab in the right upper quadrant, a #19 round Rolly drain was placed, draining the right subhepatic space near the plication site. The drain was secured with 2-0 silk. The abdomen was then closed en prabhu with interrupted #2 Vicryl sutures. SubQ was irrigated and skin closed with chance. Sponge, needle and instrument counts were reported as correct x2. OPERATIVE BLOOD LOSS: Less than 100 mL. Sponge, needle and instrument counts were reported as correct x2. The patient was transferred to the intensive care unit in critical but stable condition. Dictated By: TIFFANI ALCANTAR/TOMMY Conf#: [id number] DID#: [id number] MTDD
[2016-08-20 22:28] LABS: ADD SCAN DIFF NO
[2016-08-20 22:29] LABS: ABNORMAL IP MESSAGE 1; HEMATOCRIT 40.2 % (42.0-52.0); HEMOGLOBIN 13.5 g/dl (14.0-18.0); MEAN CORPUSCULAR HEMOGLOBIN 30.8 pg (29.0-33.0); MEAN CORPUSCULAR HGB CONC 33.6 g/dl (32.0-37.0); MEAN CORPUSCULAR VOLUME 91.6 fl (82.0-101.0); MEAN PLATELET VOLUME 10.1 fl (7.4-10.4); PLATELET COUNT 533 10^3/UL (140-415); RED BLOOD COUNT 4.39 10^6/ul (4.70-6.10); RED CELL DISTRIBUTION WIDTH 13.2 % (11.5-14.5)
[2016-08-20 22:38] LABS: POTASSIUM 5.6 mmol/L (3.5-5.1)
[2016-08-20 22:40] LABS: CREATININE 5.54 mg/dl (0.61-1.24); INR 1.66; PROTIME 19.7 Sec (12.2-14.2); PT RATIO 1.5
[2016-08-20 22:41] LABS: CALCIUM 6.9 mg/dl (8.4-10.2); MAGNESIUM 2.6 mg/dl (1.7-2.5); PARTIAL THROMBOPLASTIN TIME 37.7 Sec (25.0-35.0); PHOSPHORUS 6.4 mg/dl (2.5-4.9)
[2016-08-20] MEDS: MIDAZOLAM (DRIP) 50 mg/50 mL 50 ML IV SCH (22:46)
[2016-08-20] MEDS ORDERED: NA BICARBONATE 8.4% 50 ML SYG IV ONE (23:00)
[2016-08-20] MEDS ORDERED: SOD CHLORIDE 0.9% 500 ML IV ONE (23:00)
[2016-08-20 23:02] LABS: LYMPHOCYTES # 1.5 10^3/ul (0.8-2.9); MONOCYTE # 1.3 10^3/ul (0.3-0.9); PLATELET ESTIMATE PLT APPEAR INCREASED; PLATELETS CLUMPS 2+
[2016-08-20 23:04] LABS: Arterial Base Excess -15.5 mmol/L (-3.0-3); Arterial COHb 0.3 % (0.0-3.0); Arterial Fraction of Oxyhgb 97.9 % (93.0-99.0); Arterial HCO3 13.2 mmol/L (22.0-26.0); Arterial MetHb 0.7 % (0.0-1.5); Arterial Total Hemglobin 15.2 g/dl (12.0-18.0); MODE VENT - AC
[2016-08-20] MEDS: CEFAZOLIN 1 GM/50 ML (PMX) 50 ML IVPB SCH (23:17)
--- NOTE | 2016-08-20 23:53 | RADRPT ---
PROCEDURE: XR Chest. CLINICAL INDICATION: Endotracheal intubation. TECHNIQUE: Single frontal view of the chest was obtained COMPARISON: Today, about 4 hours ago FINDINGS: New endotracheal intubation is seen with tip about 2-3 cm above the gavin. New nasogastric tube is seen with tip and side port coiled in the mid to distal stomach. Cardiomegaly. Previously seen free air under the right hemidiaphragm appears resolved over interval . Mild bibasilar atelectasis with small pleural effusions. The lungs are otherwise clear. There is no pneumothorax. IMPRESSION: 1. No endotracheal intubation is seen with tip about 2-3 cm above the gavin. 2. New nasogastric tube is seen with tip and sideport within the mid to distal stomach. 3. Mild bibasilar atelectasis with small bilateral pleural effusions. RPTAT: [facility]U Physician Dash Date Time Electronically viewed and signed by Physician Dash on 08/20/2016 23:53 RS/
[2016-08-21] VITALS (96 sets, daily range): BP systolic 84–123; BP diastolic 51–90; PULSE 106–153; RESP 19–25
[2016-08-21] MEDS ORDERED: SODIUM BICARBONATE (IV ADD) 100 MEQ in SOD CHLORIDE 0.9% 900 ML IV SCH ×2
[2016-08-21] MEDS: PIPER-TAZO 2.25 GM (PMX) 50 ML IVPB SCH ×2 (01:50→08:39)
[2016-08-21 02:01] LABS: AADO2 Arterial 266.1 mmHg (7.0-24.0); Arterial Base Excess -10.6 mmol/L (-3.0-3); Arterial COHb 0.3 % (0.0-3.0); Arterial Fraction of Oxyhgb 97.1 % (93.0-99.0); Arterial HCO3 14.9 mmol/L (22.0-26.0); Arterial MetHb 0.6 % (0.0-1.5); Arterial Total Hemglobin 14.5 g/dl (12.0-18.0); MODE VENT - AC
[2016-08-21] MEDS: MIDAZOLAM (DRIP) 50 mg/50 mL 50 ML IV SCH ×3 (05:21→17:20)
[2016-08-21 05:24] LABS: ADD SCAN DIFF NO; HAAIG REFLEX REFLEX FILED
[2016-08-21 05:38] LABS: ABNORMAL IP MESSAGE 1; BASOPHILS % 0.3 % (0.0-2.0); HEMATOCRIT 38.6 % (42.0-52.0); LYMPHOCYTES % 8.4 % (15.0-51.0); MEAN CORPUSCULAR HEMOGLOBIN 30.2 pg (29.0-33.0); MEAN CORPUSCULAR HGB CONC 33.7 g/dl (32.0-37.0); MEAN CORPUSCULAR VOLUME 89.6 fl (82.0-101.0); MEAN PLATELET VOLUME 10.2 fl (7.4-10.4); MONOCYTE # 0.6 10^3/ul (0.3-0.9); MONOCYTES % 5.5 % (0.0-11.0); NEUTROPHIL # 9.8 10^3/ul (1.6-7.5); NEUTROPHILS % 85.3 % (39.0-77.0); PLATELET COUNT 433 10^3/UL (140-415); RED BLOOD COUNT 4.31 10^6/ul (4.70-6.10); RED CELL DISTRIBUTION WIDTH 13.2 % (11.5-14.5); WHITE BLOOD COUNT 11.5 10^3/ul (4.8-10.8)
[2016-08-21] MEDS: FENTAnyl (DRIP) 1000 mcg/100mL 100 ML IV SCH ×3 (05:38→23:45)
[2016-08-21 05:47] LABS: POTASSIUM 5.7 mmol/L (3.5-5.1)
[2016-08-21 05:50] LABS: CREATININE 6.46 mg/dl (0.61-1.24)
[2016-08-21 05:51] LABS: CALCIUM 6.9 mg/dl (8.4-10.2); MAGNESIUM 2.4 mg/dl (1.7-2.5)
[2016-08-21] MEDS ORDERED: ACETAMINOPHEN 650MG/20.3ML CUP NGT PRN (06:00)
[2016-08-21 06:37] LABS: HEPATITIS B CORE ANTIBODY NEGATIVE (NEGATIVE)
[2016-08-21] MEDS: PANTOPRAZOLE 40 MG INJ IV SCH ×2 (06:39→17:10)
[2016-08-21] MEDS: metroNIDAZOLE 500 MG/NS (PMX) 100 ML IVPB SCH ×3 (06:40→23:46)
--- NOTE | 2016-08-21 07:22 | RADRPT ---
PROCEDURE: Ultrasound guidance for placement of needle in left upper extremity vein. CLINICAL INDICATION: PICC placement. TECHNIQUE: Limited sonography of the left upper extremity was performed. Ultrasound images were recorded and st ored in the patient's medical record. COMPARISON: Chest radiograph of the same day. FINDINGS: The ultrasound images demonstrate a patent left upper extremity vein. The PICC line was inserted by the PICC line nurse. IMPRESSION: 1. Ultrasound guidance for a needle placement in a left upper extremity vein. 2. The visualized left upper extremity vein is patent. RPTAT: HFN .Elisabet Goff MD, Date Time Electronically viewed and signed by .Elisabet Goff MD, on 08/21/2016 07:22 .N/
--- NOTE | 2016-08-21 08:26 | CONS ---
Date/Time of Note Date/Time of Note DATE: 08/21/16 TIME: 08:21 Assessment/Plan Assessment/Plan Additional Assessment/Plan Chest x-ray was reviewed from yesterday which is showing severe under diaphragm. No acute infiltrates identified. Ventilator settings; AC of 24, tidal volume 600, PEEP of 5, 50% FiO2. Assessment recommendations; 1. Patient admitted for acute abdomen due to perforated peptic ulcer status post laparotomy. 2. Acute renal failure. Next 3. History of extensive drug use. 4. Metabolic acidosis likely from developing renal failure. Continue current treatment. Continue current antibiotics and ventilator settings. Patient will be dialyzed today. Will need TPN. Consultation Date/Type/Reason Admit Date/Time Aug 19, 2016 at 18:21 Date of Consultation: Aug 21, 2016 Type of Consultation: Pulmonary/critical care Reason for Consultation Pulmonary consultation obtained for respiratory failure. Patient admitted for perforated peptic ulcer status post laparotomy. Next History presenting; patient is a 36-year-old male who was brought into the hospital yesterday with complaints of severe abdominal pain nausea vomiting. Upon evaluation patient was diagnosed with acute abdomen and underwent laparotomy with discovery of 4 dated peptic ulcer patient to maintain on the ventilator.. Patient has developed acute renal failure. The time I saw the patient in ICU the patient is orally intubated, sedated. Past medical history; 1. History of extensive drug use. No other medical history. Medications; were reviewed. Allergies; are none. Social history; positive for alcohol and extensive drug use. Patient amphetamine screen was positive. Next Family history; occupational history is not available. Review of systems; unobtainable. General exam; young male, or intubated, sedated. Currently in no distress. Gastrointestinal: pain Social History Alcohol Use: sober (For the last 2-3 years) Smoking Status: Current every day smoker Drug Use: marijuana (Once every 2-3 week) Exam/Review of Systems Vital Signs Vitals Vital Signs Date Time Temp Pulse Resp B/P Pulse Ox O2 Delivery O2 Flow Rate FiO2 08/21/16 07:09 152 24 100 50 08/21/16 06:45 104/67 Mechanical Ventilator 08/21/16 05:00 101.6 Intake and Output 08/20/16 08/20/16 08/21/16 15:00 23:00 07:00 Intake Total 2412 ml 1758.750 ml Output Total 5155 ml 135 ml Balance -2743 ml 1623.750 ml Exam HEENT exam is; supple neck, no JVD. No lymphadenopathy. Midline trachea. Orally intubated. Pupils are midsize bilaterally and sluggishly reactive to light bilaterally and equally. Fair dentition. No neck masses. Chest examination SC: Clear to auscultation bilaterally. S1-S2 audible, no murmurs. Regular rhythm. Abdomen exam is; soft, midline dressing in place. No organomegaly. Bowel sounds are absent. Extremity examination; no peripheral edema. Pulses 1+ bilaterally. There is no clubbing. STRIPPER COLOR examination; patient is sedated. Results Result Diagram: 08/21/16 0445 08/21/16 0445 Results 24 hrs Laboratory Tests Test 08/20/16 09:30 08/20/16 10:25 08/20/16 12:15 08/20/16 13:45 Urine Amphetamines Screen POSITIVE Urine Bacteria FEW Urine Barbiturates Negative Urine Benzodiazepines Screen Negative Urine Bilirubin 1+ H Urine Cannabinoids Negative Urine Clarity CLEAR Urine Cocaine Screen Negative Urine Color YELLOW Urine Epithelial Cells FEW Urine Glucose NEGATIVE Urine Hemoglobin TRACE Urine Ictotest NEGATIVE Urine Ketones TRACE Urine Leukocyte Esterase NEGATIVE Urine Microscopic RBC 0-2 Urine Microscopic WBC 2-5 Urine Mucus MODERATE Urine Nitrite NEGATIVE Urine Opiates Screen Negative Urine Random Creatinine 353.27 Urine Random Sodium 84 Urine Specific Mead 1.015 Urine Total Protein 187.0 H Urine Urobilinogen 0.2 E.U./dL Urine pH 6.5 Creatinine Kinase MB (Mass) 1.11 Anion Gap 21 H 24 H Blood Urea Nitrogen 36 H 36 H Calcium Level 8.9 8.9 Carbon Dioxide Level 21 18 L Chloride Level 101 102 Creatine Kinase 64 Creatinine 4.93 #H 5.23 H Glucose Level 113 114 Potassium Level 6.0 H 5.2 H Sodium Level 137 139 Test 08/20/16 14:55 08/20/16 15:00 08/20/16 16:50 08/20/16 22:20 Lactic Acid Level 5.1 *H 4.3 *H Urine Bacteria MANY Urine Bilirubin 2+ H Urine Clarity SLIGHTLY CLOUDY Urine Coarse Granular Casts MODERATE Urine Color DK. YELLOW Urine Glucose NEGATIVE Urine Hemoglobin 2+ H Urine Ictotest NEGATIVE Urine Ketones NEGATIVE Urine Leukocyte Esterase NEGATIVE Urine Microscopic RBC 2-5 Urine Microscopic WBC 10-25 Urine Mucus MANY Urine Nitrite NEGATIVE Urine Specific Mead 1.025 Urine Squamous Epithelial Cells MODERATE Urine Total Protein 4+ H Urine Urobilinogen 1.0 E.U./dL Urine pH 6.5 INR International Normalized Ratio 1.39 1.66 Prothrombin Time 17.1 H 19.7 H Prothrombin Time Ratio 1.3 1.5 Activated Partial Thromboplast Time 37.7 H Arterial Blood HCO3 13.2 L Arterial Blood Base Excess -15.5 L Arterial Blood Oxygen Saturation 98.9 H Marcus Test N/A Arterial Blood Gas Puncture Site A-Line Anion Gap 20 H Arterial Blood Carboxyhemoglobin 0.3 Arterial Blood Date Drawn 08/20/2016 10:50:16 PM Arterial Blood Methemoglobin 0.7 Arterial Blood pCO2 (Temp correct) 40.9 Arterial Blood pH (Temp corrected) 7.126 *L Arterial Blood pO2 (Temp corrected) 207.1 H Band Neutrophils % 37.0 H Blood Gas A-a O2 Differential 465.0 H Blood Gas Actual Respiration Rate 27 Blood Gas Critical Value Read Back DPATEL RN Blood Gas Low PEEP Setting 5.0 Blood Gas Modality VENT - AC Blood Gas Notified Time 08/20/2016 11:04:00 PM Blood Gas Notified Whom MA Blood Gas Respiration Rate 15.0 Blood Gas Specimen Source Blood arterial Blood Gas Temperature 37.0 Blood Gas Tidal Volume 500.0 Blood Urea Nitrogen 41 H Calcium Level 6.9 L Carbon Dioxide Level 16 L Chloride Level 108 Clumped Platelets 2+ Creatinine 5.54 H Eosinophils # Eosinophils % FiO2 100.0 Glucose Level 105 Hematocrit 40.2 L Hemoglobin 13.5 #L Lymphocytes # 1.5 Lymphocytes % 14.0 L Magnesium Level 2.6 H Mean Corpuscular Hemoglobin 30.8 Mean Corpuscular Hemoglobin Concent 33.6 Mean Corpuscular Volume 91.6 Mean Platelet Volume 10.1 Metamyelocytes # 0.1 Metamyelocytes % 1.0 H Monocytes # 1.3 H Monocytes % 12.0 H Neutrophils # 4.0 Neutrophils % 36.0 L Oxyhemoglobin Percent 97.9 Phosphorus Level 6.4 #H Platelet Count 533 #H Platelet Estimate PLT APPEAR INCREASED Potassium Level 5.6 H Red Blood Count 4.39 #L Red Cell Distribution Width 13.2 Sodium Level 138 Total Hemoglobin 15.2 White Blood Count 11.0 #H Test 08/21/16 02:00 08/21/16 04:45 Arterial Blood HCO3 14.9 L Arterial Blood Base Excess -10.6 L Arterial Blood Oxygen Saturation 98.0 Marcus Test N/A Arterial Blood Gas Puncture Site A-Line Arterial Blood Carboxyhemoglobin 0.3 Arterial Blood Date Drawn 08/21/2016 1:50:58 AM Arterial Blood Methemoglobin 0.6 Arterial Blood pCO2 (Temp correct) 32.4 L Arterial Blood pH (Temp corrected) 7.280 *L Arterial Blood pO2 (Temp corrected) 126.1 H Blood Gas A-a O2 Differential 266.1 H Blood Gas Actual Respiration Rate 24 Blood Gas Critical Value Read Back DPATEL RN Blood Gas Low PEEP Setting 5.0 Blood Gas Modality VENT - AC Blood Gas Notified Time 08/21/2016 2:00:50 AM Blood Gas Notified Whom MA Blood Gas Respiration Rate 24.0 Blood Gas Specimen Source Blood arterial Blood Gas Temperature 37.0 Blood Gas Tidal Volume 600.0 FiO2 60.0 Oxyhemoglobin Percent 97.1 Total Hemoglobin 14.5 Anion Gap 20 H Basophils # 0.0 Basophils % 0.3 Blood Urea Nitrogen 50 H Calcium Level 6.9 L Carbon Dioxide Level 18 L Chloride Level 108 Creatinine 6.46 H Eosinophils # 0.0 Eosinophils % 0.0 Glucose Level 98 HIV (1&2) Antibody NEGATIVE Hematocrit 38.6 L Hemoglobin 13.0 L Hepatitis B Core Total Antibody NEGATIVE Hepatitis B Surface Antigen NEGATIVE Hepatitis C Antibody NEGATIVE Lactic Acid Level 3.5 H Lymphocytes # 1.0 Lymphocytes % 8.4 L Magnesium Level 2.4 Mean Corpuscular Hemoglobin 30.2 Mean Corpuscular Hemoglobin Concent 33.7 Mean Corpuscular Volume 89.6 Mean Platelet Volume 10.2 Monocytes # 0.6 Monocytes % 5.5 Neutrophils # 9.8 H Neutrophils % 85.3 H Nucleated Red Blood Cells # 0.0 Nucleated Red Blood Cells % 0.0 Phosphorus Level 6.0 H Platelet Count 433 H Potassium Level 5.7 H Red Blood Count 4.31 L Red Cell Distribution Width 13.2 Sodium Level 140 White Blood Count 11.5 H Medications Medications Current Medications Morphine Sulfate (morphine) 2 mg Q4H PRN IV SEVERE PAIN LEVEL 7-10 Last administered on 08/20/16t 04:38; Admin Dose 2 MG; Start 08/19/16 at 19:30 Acetaminophen/ Hydrocodone Bitart (Harcourt (7.5-325)) 1 tab Q6H PRN PO PAIN Last administered on 08/20/16 09:34; Admin Dose 1 TAB; Start 08/19/16 at 21:30 Chlordiazepoxide 25 mg 25 mg TID PO Last administered on 08/20/16 23:08; Admin Dose 25 MG; Start 08/20/16 at 04:30 Multivitamins 10 ml/Thiamine HCl 100 mg/Folic Acid 1 mg/Sodium Chloride 1,011.2 ml @ 125 mls/ hr DAILY@09 IVPB Last administered on 08/20/16 10:22; Admin Dose 125 MLS/HR; Start 08/20/16 at 09:00 Piperacillin Sod/ Tazobactam Sod (Zosyn 2.25gm/ 50ml (Pmx)) 50 ml @ 200 mls/hr Q12 IVPB Last administered on 08/21/16 01:50; Admin Dose 200 MLS/HR; Start at 16:00 IV Flush (NS 10 ml) 10 ml PRN PRN IV IV PROTOCOL; Start 08/20/16 at 19:30 Oxycodone/ Acetaminophen (Percocet (5/ 325)) 1 tab Q4H PRN PO MILD PAIN (1-3); Start 08/20/16 at 21:30 Oxycodone/ Acetaminophen (Percocet (5/ 325)) 2 tab Q4H PRN PO MODERATE PAIN (4- 6); Start 08/20/16 at 21:30 Morphine Sulfate (morphine) 2 mg ONCE PRN IV SEVERE PAIN LEVEL 7-10; Start 08/20 at 21:30 Ondansetron HCl (Zofran Inj) 4 mg Q6H PRN IV NAUSEA; Start 08/20/16 at 21:30 Pantoprazole 40 mg 40 mg BID@06,18 IV Last administered on 08/21/16 06:39; Admin Dose 40 MG; Start 08/21/16 at 06:00 Cefazolin Sodium 50 ml @ 100 mls/hr Q12 IVPB Last administered on 08/20/16 23 :17; Admin Dose 100 MLS/HR; Start 08/20/16 at 23:00 Fentanyl 100 ml @ 2.5 mls/hr TITRATE IV Last administered on 08/21/16 05:38; Admin Dose 7.5 MLS/HR; Start 08/20/16 at 22:00 Midazolam HCl 50 ml @ 1 mls/hr TITRATE IV Last administered on 08/21/16 05:21 ; Admin Dose 10 MLS/HR; Start 08/20/16 at 22:00 Metronidazole 100 ml @ 100 mls/hr Q8 IVPB Last administered on 08/21/16 06:40 ; Admin Dose 100 MLS/HR; Start 08/21/16 at 06:00 Norepinephrine/ Dextrose (Levophed/D5W) 500 ml @ 1.87 mls/hr TITRATE IV ; Start 08/21/16 at 07:00 Acetaminophen 650 mg 650 mg Q6H PRN NGT PAIN AND OR ELEVATED TEMP Last administered on 08/21/16 06:40; Admin Dose 650 MG; Start 08/21/16 at 06:00 Sodium Chloride (NS) 1,000 ml @ 100 mls/hr Q10H IV ; Start 08/21/16 at 08:30 RAFAL SIMS 17, 2017 08:25
--- NOTE | 2016-08-21 08:36 | PN ---
DATE: 08/21/2016 SUBJECTIVE: The patient yesterday had a stat CT scan of abdomen and pelvis which showed findings of free air. The patient was taken to emergent laparotomy which found perforated antral ulcer. The p gita was transferred to intensive care unit, intubated, critical condition. The patient remains o liguric, anuric, with a urine output of 120 mL. OBJECTIVE: VITAL SIGNS: Blood pressure is currently 104/67, respirations 24, pulse 52, temperature 101.6. HEENT: Head is normocephalic. Pupils are reactive. NECK: Supple. HEART: Regular rate. LUNGS: Show diminished breath sounds at base. ABDOMEN: Soft, nontender to palpation. Positive laparotomy with dressing clean, dry, and intact. EXTREMITIES: Negative for clubbing, cyanosis, or edema. DERMATOLOGIC: No rashes. MUSCULOSKELETAL: No joint effusions. NEUROLOGIC: Limited exam as the patient is sedated. LABORATORY DATA: Shows sodium 140, potassium 5.7, chloride 108, BUN 50, creatinine 6.46. Lactic ac id 3.5, calcium 6.9, phosphorus 6.0. White count 11.5, hemoglobin 13.0, hematocrit 38.6, platelet c ount 433. ASSESSMENT AND PLAN: 1. Oligoanuric acute kidney injury with previous baseline creatinine of 0.9 mg/dL. Etiology of acu te kidney injury is secondary to acute tubular necrosis due to nephrotoxic exposure from methampheta mine and sepsis. The patient has shown no evidence of renal recovery. He is currently hyperkalemic . Plan is for hemodialysis today for 3 hours on a 2K bath, calcium 2.5. We will minimize ultrafilt ration. We will anticipate daily dialysis over the next 2 to 3 days for solute clearance. We will monitor for any signs of renal recovery. 2. Hyperkalemia secondary to acute kidney injury. Plan for hemodialysis today. We will dialyze on a 2K bath. 3. Mineral bone disorder. The patient is hypocalcemic and hyperphosphatemic. The patient will be dialyzed today on a 2.5 calcium bath. 4. Acute abdomen with perforated antral ulcer. The patient is status post exploratory laparotomy w ith closure of antral ulcer and placement of drain. At this point, we will continue broad spectrum antibiotics and follow up with general surgery. 5. Sepsis secondary to perforated viscus. The patient's broad spectrum antibiotics will be continu ed. Cultures have been reviewed. Consider ID evaluation. 6. Ventilator dependent respiratory failure. Vent settings have been reviewed. ABG has been revie wed. Continue to monitor. 7. Acute encephalopathy with recent history of polysubstance abuse. Continue to monitor. 8. Tachycardia. Etiology is multifactorial secondary to pain, sepsis, possible withdrawal. Contin ue current medical management. Consider cardiology evaluation. Continue pain control. 9. Metabolic acidosis secondary to acute kidney injury. The patient will be dialyzed on a bicarbon ate bath. Please note I spent over 40 minutes of critical care time with this patient. Dictated By: SILVIA HERNANDEZ/NTS Conf#: [id number] DID#: [id number]
[2016-08-21] MEDS: CEFAZOLIN 1 GM/50 ML (PMX) 50 ML IVPB SCH ×2 (08:39→20:19)
[2016-08-21] MEDS: CHLORDIAZEPOXIDE 25 MG CAP PO SCH (08:42)
[2016-08-21] MEDS: MULTIVITAMINS 10 ML, THIAMINE 100 MG, FOLIC ACID 1 MG in SOD CHLORIDE 0.9% 1,000 ML IVPB SCH (09:02)
--- NOTE | 2016-08-21 10:13 | CONS ---
Date/Time of Note Date/Time of Note DATE: 08/21/16 TIME: 10:07 Assessment/Plan Assessment/Plan Additional Assessment/Plan Abdominal pain/nausea/vomiting Coffee-ground emesis Secondary to GI bleed s/p 1. Exploratory laparotomy. 2. Oversew of perforated antral ulcer and placement of drain. EGD deferred Monitor H&H every 8 hours, transfuse 2 units for hemoglobin less than 7.[address] abdomen: Completed at [facility]. Notes mild diverticulosis and minimal ascites. Continue PPI twice daily Acute kidney injury Nephrology follow Exploratory laparotomy. Status post right femoral dual-lumen vascath, starting hemodialysis Avoid nephrotoxic medication Tobacco use Management per Primary Encourage abstinence Marijuana use Management per Primary Encourage moderation Further recommendations depend on clinical course Patient seen in collaboration with Dr. Kirkpatrick Consultation Date/Type/Reason Admit Date/Time Aug 19, 2016 at 18:21 Initial Consult Date 08/21/16 Type of Consultation: Gastroenterology 24 HR Interval Summary Free Text/Dictation Patient status post emergent perforated viscus repair Patient intubated and sedated Exam/Review of Systems Vital Signs Vitals Vital Signs Date Time Temp Pulse Resp B/P Pulse Ox O2 Delivery O2 Flow Rate FiO2 08/21/16 09:50 149 24 100 50 08/21/16 08:30 103/73 08/21/16 08:00 Mechanical Ventilator 08/21/16 07:30 102.8 Intake and Output 08/20/16 08/20/16 08/21/16 15:00 23:00 07:00 Intake Total 2412 ml 1758.750 ml Output Total 5155 ml 135 ml Balance -2743 ml 1623.750 ml Exam Constitutional: Sedated and intubated Psych: nl mood/affect Head: normocephalic Eyes: EOMI, nl conjunctiva, nl lids ENMT: nl external ears & nose, nl lips & teeth, nl nasal mucosa & septum Respiratory: Intubated Cardiovascular: Tachycardia Gastrointestinal: soft Musculoskeletal: nl extremities to inspection Neurological: LABEL STAMPER II-XII intact Results Result Diagram: 08/21/165 08/21/165 Results 24 hrs Laboratory Tests Test 08/20/16 10:25 08/20/16 12:15 08/20/16 13:45 08/20/16 14:55 Creatinine Kinase MB (Mass) 1.11 Anion Gap 21 H 24 H Blood Urea Nitrogen 36 H 36 H Calcium Level 8.9 8.9 Carbon Dioxide Level 21 18 L Chloride Level 101 102 Creatine Kinase 64 Creatinine 4.93 #H 5.23 H Glucose Level 113 114 Potassium Level 6.0 H 5.2 H Sodium Level 137 139 Lactic Acid Level 5.1 *H Test 08/20/16 15:00 08/20/16 16:50 08/20/16 22:20 08/21/16 02:00 Urine Bacteria MANY Urine Bilirubin 2+ H Urine Clarity SLIGHTLY CLOUDY Urine Coarse Granular Casts MODERATE Urine Color DK. YELLOW Urine Glucose NEGATIVE Urine Hemoglobin 2+ H Urine Ictotest NEGATIVE Urine Ketones NEGATIVE Urine Leukocyte Esterase NEGATIVE Urine Microscopic RBC 2-5 Urine Microscopic WBC 10-25 Urine Mucus MANY Urine Nitrite NEGATIVE Urine Specific [place] 1.025 Urine Squamous Epithelial Cells MODERATE Urine Total Protein 4+ H Urine Urobilinogen 1.0 E.U./dL Urine pH 6.5 INR International Normalized Ratio 1.39 1.66 Prothrombin Time 17.1 H 19.7 H Prothrombin Time Ratio 1.3 1.5 Activated Partial Thromboplast Time 37.7 H Arterial Blood HCO3 13.2 L 14.9 L Arterial Blood Base Excess -15.5 L -10.6 L Arterial Blood Oxygen Saturation 98.9 H 98.0 Marcus Test N/A N/A Arterial Blood Gas Puncture Site A-Line A-Line Anion Gap 20 H Arterial Blood Carboxyhemoglobin 0.3 0.3 Arterial Blood Date Drawn 08/20/2016 10:50:16 PM 08/21/2016 1:50:58 AM Arterial Blood Methemoglobin 0.7 0.6 Arterial Blood pCO2 (Temp correct) 40.9 32.4 L Arterial Blood pH (Temp corrected) 7.126 *L 7.280 *L Arterial Blood pO2 (Temp corrected) 207.1 H 126.1 H Band Neutrophils % 37.0 H Blood Gas A-a O2 Differential 465.0 H 266.1 H Blood Gas Actual Respiration Rate 27 24 Blood Gas Critical Value Read Back DPATEL RN DPATEL RN Blood Gas Low PEEP Setting 5.0 5.0 Blood Gas Modality VENT - AC VENT - AC Blood Gas Notified Time 08/20/2016 11:04:00 PM 08/21/2016 2:00:50 AM Blood Gas Notified Whom FLORENCIO MATIAS Blood Gas Respiration Rate 15.0 24.0 Blood Gas Specimen Source Blood arterial Blood arterial Blood Gas Temperature 37.0 37.0 Blood Gas Tidal Volume 500.0 600.0 Blood Urea Nitrogen 41 H Calcium Level 6.9 L Carbon Dioxide Level 16 L Chloride Level 108 Clumped Platelets 2+ Creatinine 5.54 H Eosinophils # Eosinophils % FiO2 100.0 60.0 Glucose Level 105 Hematocrit 40.2 L Hemoglobin 13.5 #L Lactic Acid Level 4.3 *H Lymphocytes # 1.5 Lymphocytes % 14.0 L Magnesium Level 2.6 H Mean Corpuscular Hemoglobin 30.8 Mean Corpuscular Hemoglobin Concent 33.6 Mean Corpuscular Volume 91.6 Mean Platelet Volume 10.1 Metamyelocytes # 0.1 Metamyelocytes % 1.0 H Monocytes # 1.3 H Monocytes % 12.0 H Neutrophils # 4.0 Neutrophils % 36.0 L Oxyhemoglobin Percent 97.9 97.1 Phosphorus Level 6.4 #H Platelet Count 533 #H Platelet Estimate PLT APPEAR INCREASED Potassium Level 5.6 H Red Blood Count 4.39 #L Red Cell Distribution Width 13.2 Sodium Level 138 Total Hemoglobin 15.2 14.5 White Blood Count 11.0 #H Test 08/21/16 04:45 Anion Gap 20 H Basophils # 0.0 Basophils % 0.3 Blood Urea Nitrogen 50 H Calcium Level 6.9 L Carbon Dioxide Level 18 L Chloride Level 108 Creatinine 6.46 H Eosinophils # 0.0 Eosinophils % 0.0 Glucose Level 98 HIV (1&2) Antibody NEGATIVE Hematocrit 38.6 L Hemoglobin 13.0 L Hepatitis B Core Total Antibody NEGATIVE Hepatitis B Surface Antigen NEGATIVE Hepatitis C Antibody NEGATIVE Lactic Acid Level 3.5 H Lymphocytes # 1.0 Lymphocytes % 8.4 L Magnesium Level 2.4 Mean Corpuscular Hemoglobin 30.2 Mean Corpuscular Hemoglobin Concent 33.7 Mean Corpuscular Volume 89.6 Mean Platelet Volume 10.2 Monocytes # 0.6 Monocytes % 5.5 Neutrophils # 9.8 H Neutrophils % 85.3 H Nucleated Red Blood Cells # 0.0 Nucleated Red Blood Cells % 0.0 Phosphorus Level 6.0 H Platelet Count 433 H Potassium Level 5.7 H Red Blood Count 4.31 L Red Cell Distribution Width 13.2 Sodium Level 140 White Blood Count 11.5 H Medications Medications Current Medications Morphine Sulfate (morphine) 2 mg Q4H PRN IV SEVERE PAIN LEVEL 7-10 Last administered on 08/20/16 04:38; Admin Dose 2 MG; Start 08/19/16 at 19:30 Acetaminophen/ Hydrocodone Bitart ([place] (7.5-325)) 1 tab Q6H PRN PO PAIN Last administered on 08/20/16 09:34; Admin Dose 1 TAB; Start 08/19/16 at 21:30 Chlordiazepoxide 25 mg 25 mg TID PO Last administered on 08/20/16 23:08; Admin Dose 25 MG; Start 08/20/16 at 04:30 Multivitamins 10 ml/Thiamine HCl 100 mg/Folic Acid 1 mg/Sodium Chloride 1,011.2 ml @ 125 mls/ hr DAILY@09 IVPB Last administered on 08/21/16 09:02; Admin Dose 125 MLS/HR; Start 08/20/16 at 09:00 Piperacillin Sod/ Tazobactam Sod (Zosyn 2.25gm/ 50ml (Pmx)) 50 ml @ 200 mls/hr Q12 IVPB Last administered on 08/21/16 08:39; Admin Dose 200 MLS/HR; Start at 16:00 IV Flush (NS 10 ml) 10 ml PRN PRN IV IV PROTOCOL; Start 08/20/16 at 19:30 Oxycodone/ Acetaminophen (Percocet (5/ 325)) 1 tab Q4H PRN PO MILD PAIN (1-3); Start 08/20/16 at 21:30 Oxycodone/ Acetaminophen (Percocet (5/ 325)) 2 tab Q4H PRN PO MODERATE PAIN (4- 6); Start 08/20/16 at 21:30 Morphine Sulfate (morphine) 2 mg ONCE PRN IV SEVERE PAIN LEVEL 7-10; Start 08/20 at 21:30 Ondansetron HCl (Zofran Inj) 4 mg Q6H PRN IV NAUSEA; Start 08/20/16 at 21:30 Pantoprazole 40 mg 40 mg BID@06,18 IV Last administered on 08/21/16 06:39; Admin Dose 40 MG; Start 08/21/16 at 06:00 Cefazolin Sodium 50 ml @ 100 mls/hr Q12 IVPB Last administered on 08/21/16 08 :39; Admin Dose 100 MLS/HR; Start 08/20/16 at 23:00 Fentanyl 100 ml @ 2.5 mls/hr TITRATE IV Last administered on 08/21/16 05:38; Admin Dose 7.5 MLS/HR; Start 08/20/16 at 22:00 Midazolam HCl 50 ml @ 1 mls/hr TITRATE IV Last administered on 08/21/16 05:21 ; Admin Dose 10 MLS/HR; Start 08/20/16 at 22:00 Metronidazole 100 ml @ 100 mls/hr Q8 IVPB Last administered on 08/21/16 06:40 ; Admin Dose 100 MLS/HR; Start 08/21/16 at 06:00 Norepinephrine/ Dextrose (Levophed/D5W) 500 ml @ 1.87 mls/hr TITRATE IV ; Start 08/21/16 at 07:00 Acetaminophen 650 mg 650 mg Q6H PRN NGT PAIN AND OR ELEVATED TEMP Last administered on 08/21/16 06:40; Admin Dose 650 MG; Start 08/21/16 at 06:00 Sodium Chloride (NS) 1,000 ml @ 100 mls/hr Q10H IV ; Start 08/21/16 at 08:30 MARÍA ALEXANDRE Aug 21, 2016 10:12
--- NOTE | 2016-08-21 10:59 | PN ---
DATE: 08/21/2016 Postoperative day #1. The patient remains intubated. His T-max was 103. His abdomen is distended. The incision is clean and the KARISSA drain is draining serous fluid. LABORATORY DATA: Hematocrit is 38.6, white count is 11,500. Yesterday's bandemia of 37 has resolve d. His BUN is up to 15. Creatinine is up to 6.46. His lactic acid level has come down to 3.5. IN R is 1.66. IMPRESSION: Critically ill patient with a septic picture and renal failure, now postoperative day # 1, status post plication of perforated gastric ulcer. PLAN: Hemodialysis today. Continue aggressive medical management. Dictated By: TIFFANI ALCANTAR/TOMMY Conf#: [id number] DID#: [id number]
[2016-08-21] MEDS: SOD CHLORIDE 0.9% 1,000 ML IV SCH ×3 (11:00→21:01)
[2016-08-21] MEDS: ACETAMINOPHEN 650 MG SUPP PR PRN (11:41)
[2016-08-21] MEDS ORDERED: NORepinephrine 8MG/250 ML (PMX 250 ML ONE (12:24)
--- NOTE | 2016-08-21 14:40 | PN ---
Date/Time of Note Date/Time of Note DATE: 08/21/16 TIME: 14:34 Assessment/Plan VTE Prophylaxis VTE Prophylaxis Intervention: SCD's Lines/[facility] Assessment/Plan Chief Complaint/Hosp Course 1. Abdominal pain secondary to perforated gastric ulcer status post surgical repair Continue vent support, continue ICU monitoring 2. Acute kidney injury Continue dialysis per nephrology 3. Smoking history Advise smoking cessation 4. Substance abuse Toxicology is positive for amphetamines 5. SIRS reactive secondary to #1 Continue Zosyn as well as Flagyl and Ancef Prophylaxis: PPI and SCDs Problems: Subjective 24 Hr Interval Summary Subjective hx not possible: pt non-verbal Exam/Review of Systems Vital Signs Vitals Vital Signs Date Time Temp Pulse Resp B/P Pulse Ox O2 Delivery O2 Flow Rate FiO2 08/21/16 14:00 145 08/21/16 13:00 15 08/21/16 11:25 100 50 08/21/16 11:15 109/60 08/21/16 11:00 102.9 Mechanical Ventilator Intake and Output 08/20/16 08/20/16 08/21/16 15:00 23:00 07:00 Intake Total 2412 ml 1758.750 ml Output Total 5155 ml 135 ml Balance -2743 ml 1623.750 ml Exam Constitutional: non-verbal Respiratory: clear to auscultation Cardiovascular: regular rate and rhythm Gastrointestinal: soft, No distended Musculoskeletal: nl extremities to inspection Results Result Diagram: 08/21/16 0445 08/21/16 0445 Results 24 hrs Laboratory Tests Test 08/20/16 14:55 08/20/16 15:00 08/20/16 16:50 08/20/16 22:20 Lactic Acid Level 5.1 *H 4.3 *H Urine Bacteria MANY Urine Bilirubin 2+ H Urine Clarity SLIGHTLY CLOUDY Urine Coarse Granular Casts MODERATE Urine Color DK. YELLOW Urine Glucose NEGATIVE Urine Hemoglobin 2+ H Urine Ictotest NEGATIVE Urine Ketones NEGATIVE Urine Leukocyte Esterase NEGATIVE Urine Microscopic RBC 2-5 Urine Microscopic WBC 10-25 Urine Mucus MANY Urine Nitrite NEGATIVE Urine Specific [place] 1.025 Urine Squamous Epithelial Cells MODERATE Urine Total Protein 4+ H Urine Urobilinogen 1.0 E.U./dL Urine pH 6.5 INR International Normalized Ratio 1.39 1.66 Prothrombin Time 17.1 H 19.7 H Prothrombin Time Ratio 1.3 1.5 Activated Partial Thromboplast Time 37.7 H Arterial Blood HCO3 13.2 L Arterial Blood Base Excess -15.5 L Arterial Blood Oxygen Saturation 98.9 H Marcus Test N/A Arterial Blood Gas Puncture Site A-Line Anion Gap 20 H Arterial Blood Carboxyhemoglobin 0.3 Arterial Blood Date Drawn 08/20/2016 10:50:16 PM Arterial Blood Methemoglobin 0.7 Arterial Blood pCO2 (Temp correct) 40.9 Arterial Blood pH (Temp corrected) 7.126 *L Arterial Blood pO2 (Temp corrected) 207.1 H Band Neutrophils % 37.0 H Blood Gas A-a O2 Differential 465.0 H Blood Gas Actual Respiration Rate 27 Blood Gas Critical Value Read Back DPATEL RN Blood Gas Low PEEP Setting 5.0 Blood Gas Modality VENT - AC Blood Gas Notified Time 08/20/2016 11:04:00 PM Blood Gas Notified Whom MA Blood Gas Respiration Rate 15.0 Blood Gas Specimen Source Blood arterial Blood Gas Temperature 37.0 Blood Gas Tidal Volume 500.0 Blood Urea Nitrogen 41 H Calcium Level 6.9 L Carbon Dioxide Level 16 L Chloride Level 108 Clumped Platelets 2+ Creatinine 5.54 H Eosinophils # Eosinophils % FiO2 100.0 Glucose Level 105 Hematocrit 40.2 L Hemoglobin 13.5 #L Lymphocytes # 1.5 Lymphocytes % 14.0 L Magnesium Level 2.6 H Mean Corpuscular Hemoglobin 30.8 Mean Corpuscular Hemoglobin Concent 33.6 Mean Corpuscular Volume 91.6 Mean Platelet Volume 10.1 Metamyelocytes # 0.1 Metamyelocytes % 1.0 H Monocytes # 1.3 H Monocytes % 12.0 H Neutrophils # 4.0 Neutrophils % 36.0 L Oxyhemoglobin Percent 97.9 Phosphorus Level 6.4 #H Platelet Count 533 #H Platelet Estimate PLT APPEAR INCREASED Potassium Level 5.6 H Red Blood Count 4.39 #L Red Cell Distribution Width 13.2 Sodium Level 138 Total Hemoglobin 15.2 White Blood Count 11.0 #H Test 08/21/16 02:00 08/21/16 04:45 08/21/16 12:43 Arterial Blood HCO3 14.9 L Arterial Blood Base Excess -10.6 L Arterial Blood Oxygen Saturation 98.0 Marcus Test N/A Arterial Blood Gas Puncture Site A-Line Arterial Blood Carboxyhemoglobin 0.3 Arterial Blood Date Drawn 08/21/2016 1:50:58 AM Arterial Blood Methemoglobin 0.6 Arterial Blood pCO2 (Temp correct) 32.4 L Arterial Blood pH (Temp corrected) 7.280 *L Arterial Blood pO2 (Temp corrected) 126.1 H Blood Gas A-a O2 Differential 266.1 H Blood Gas Actual Respiration Rate 24 Blood Gas Critical Value Read Back DPATEL RN Blood Gas Low PEEP Setting 5.0 Blood Gas Modality VENT - AC Blood Gas Notified Time 08/21/2016 2:00:50 AM Blood Gas Notified Whom MA Blood Gas Respiration Rate 24.0 Blood Gas Specimen Source Blood arterial Blood Gas Temperature 37.0 Blood Gas Tidal Volume 600.0 FiO2 60.0 Oxyhemoglobin Percent 97.1 Total Hemoglobin 14.5 Anion Gap 20 H Basophils # 0.0 Basophils % 0.3 Blood Urea Nitrogen 50 H Calcium Level 6.9 L Carbon Dioxide Level 18 L Chloride Level 108 Creatinine 6.46 H Eosinophils # 0.0 Eosinophils % 0.0 Glucose Level 98 HIV (1&2) Antibody NEGATIVE Hematocrit 38.6 L Hemoglobin 13.0 L Hepatitis B Core Total Antibody NEGATIVE Hepatitis B Surface Antigen NEGATIVE Hepatitis C Antibody NEGATIVE Lactic Acid Level 3.5 H 2.0 Lymphocytes # 1.0 Lymphocytes % 8.4 L Magnesium Level 2.4 Mean Corpuscular Hemoglobin 30.2 Mean Corpuscular Hemoglobin Concent 33.7 Mean Corpuscular Volume 89.6 Mean Platelet Volume 10.2 Monocytes # 0.6 Monocytes % 5.5 Neutrophils # 9.8 H Neutrophils % 85.3 H Nucleated Red Blood Cells # 0.0 Nucleated Red Blood Cells % 0.0 Phosphorus Level 6.0 H Platelet Count 433 H Potassium Level 5.7 H Red Blood Count 4.31 L Red Cell Distribution Width 13.2 Sodium Level 140 White Blood Count 11.5 H Medications Medications Current Medications Morphine Sulfate (morphine) 2 mg Q4H PRN IV SEVERE PAIN LEVEL 7-10 Last administered on 08/20/16 04:38; Admin Dose 2 MG; Start 08/19/16 at 19:30 Acetaminophen/ Hydrocodone Bitart 1 tab 1 tab Q6H PRN PO PAIN Last administered on 08/20/16 09:34; Admin Dose 1 TAB; Start 08/19/16 at 21:30 Piperacillin Sod/ Tazobactam Sod (Zosyn 2.25gm/ 50ml (Pmx)) 50 ml @ 200 mls/hr Q12 IVPB Last administered on 08/21/16 08:39; Admin Dose 200 MLS/HR; Start at 16:00 IV Flush (NS 10 ml) 10 ml PRN PRN IV IV PROTOCOL; Start 08/20/16 at 19:30 Oxycodone/ Acetaminophen (Percocet (5/ 325)) 1 tab Q4H PRN PO MILD PAIN (1-3); Start 08/20/16 at 21:30 Oxycodone/ Acetaminophen (Percocet (5/ 325)) 2 tab Q4H PRN PO MODERATE PAIN (4- 6); Start 08/20/16 at 21:30 Morphine Sulfate (morphine) 2 mg ONCE PRN IV SEVERE PAIN LEVEL 7-10; Start 08/20 at 21:30 Ondansetron HCl (Zofran Inj) 4 mg Q6H PRN IV NAUSEA; Start 08/20/16 at 21:30 Pantoprazole 40 mg 40 mg BID@06,18 IV Last administered on 08/21/16 06:39; Admin Dose 40 MG; Start 08/21/16 at 06:00 Cefazolin Sodium 50 ml @ 100 mls/hr Q12 IVPB Last administered on 08/21/16 08 :39; Admin Dose 100 MLS/HR; Start 08/20/16 at 23:00 Fentanyl 100 ml @ 2.5 mls/hr TITRATE IV Last administered on 08/21/16 10:08; Admin Dose 7.5 MLS/HR; Start 08/20/16 at 22:00 Midazolam HCl 50 ml @ 1 mls/hr TITRATE IV Last administered on 08/21/16 10:07 ; Admin Dose 7 MLS/HR; Start 08/20/16 at 22:00 Metronidazole 100 ml @ 100 mls/hr Q8 IVPB Last administered on 08/21/16 14:30 ; Admin Dose 100 MLS/HR; Start 08/21/16 at 06:00 Norepinephrine 16 mg/Dextrose 500 ml @ 1.87 mls/hr TITRATE IV Last administered on 08/21/16 14:31; Admin Dose 28.12 MLS/HR; Start 08/21/16 at 07: 00 Sodium Chloride (NS) 1,000 ml @ 100 mls/hr Q10H IV Last administered on 11:00; Admin Dose 100 MLS/HR; Start 08/21/16 at 08:30 Acetaminophen (Tylenol Supp) 650 mg Q6H PRN [place] FEVER Last administered on 11:41; Admin Dose 650 MG; Start 08/21/16 at 11:30 BAHMAN FISH Aug 21, 2016 14:40
[2016-08-21 16:05] LABS: MICROALBUMIN 19.1 mg/dL
[2016-08-22] VITALS (96 sets, daily range): BP systolic 101–129; BP diastolic 43–87; PULSE 98–132; RESP 0–24
[2016-08-22] MEDS: MIDAZOLAM (DRIP) 50 mg/50 mL 50 ML IV SCH (01:42)
[2016-08-22 05:18] LABS: POTASSIUM 4.1 mmol/L (3.5-5.1)
[2016-08-22 05:20] LABS: CALCIUM 6.8 mg/dl (8.4-10.2); CREATININE 6.26 mg/dl (0.61-1.24); MAGNESIUM 2.3 mg/dl (1.7-2.5); PHOSPHORUS 6.4 mg/dl (2.5-4.9)
[2016-08-22] MEDS: PANTOPRAZOLE 40 MG INJ IV SCH ×2 (06:07→17:28)
[2016-08-22] MEDS: metroNIDAZOLE 500 MG/NS (PMX) 100 ML IVPB SCH ×3 (06:07→21:52)
[2016-08-22 06:14] LABS: ADD SCAN DIFF NO
[2016-08-22 06:35] LABS: HEMATOCRIT 26.3 % (42.0-52.0); MEAN CORPUSCULAR HEMOGLOBIN 30.3 pg (29.0-33.0); MEAN CORPUSCULAR HGB CONC 34.6 g/dl (32.0-37.0); MEAN CORPUSCULAR VOLUME 87.7 fl (82.0-101.0); MEAN PLATELET VOLUME 9.7 fl (7.4-10.4); PLATELET COUNT 229 10^3/UL (140-415); RED CELL DISTRIBUTION WIDTH 13.8 % (11.5-14.5); WHITE BLOOD COUNT 13.3 10^3/ul (4.8-10.8)
[2016-08-22 06:37] LABS: HEMOGLOBIN 9.1 g/dl (14.0-18.0)
[2016-08-22] MEDS: SOD CHLORIDE 0.9% 1,000 ML IV SCH ×2 (07:02→17:23)
--- NOTE | 2016-08-22 10:21 | CONS ---
Date/Time of Note Date/Time of Note DATE: 08/22/16 TIME: 10:13 Consult Date/Type/Reason Admit Date/Time Aug 19, 2016 at 18:21 Initial Consult Date 08/21/16 Type of Consultation: neph Subjective This is a 36-year-old male with a past medical history of polysubstance abuse, marijuana use, history of heavy alcohol use, who was transferred to [facility] from [place] with episodes of abdominal pain. The patient had a stat CT scan of abdomen and pelvis which showed findings of free air. The patient was taken to emergent laparotomy which found perforated antral ulcer. The patient was transferred to intensive care unit, intubated, critical condition. The patient remains oliguric, anuric, with a urine output of 120 mL. Required hd emergently which he tolerated. last hd yesterday. poc reviewed with dr. nevarez. OBJECTIVE: HEENT: Head is normocephalic. Pupils are reactive. NECK: Supple. HEART: Regular rate. LUNGS: Show diminished breath sounds at base. ABDOMEN: Soft, nontender to palpation. Positive laparotomy with dressing clean , dry, and intact. EXTREMITIES: Negative for clubbing, cyanosis, or edema. DERMATOLOGIC: No rashes. MUSCULOSKELETAL: No joint effusions. NEUROLOGIC: Limited exam as the patient is sedated. Objective Vital Signs Date Time Temp Pulse Resp B/P Pulse Ox O2 Delivery O2 Flow Rate FiO2 08/22/16 08:00 40 08/22/16 08:00 117 08/22/16 06:15 0 113/67 100 08/22/16 06:00 Mechanical Ventilator 08/22/16 04:00 99.7 Intake and Output 08/21/16 08/21/16 08/22/16 15:00 23:00 07:00 Intake Total 2184.17 ml 1055.99 ml 947.23 ml Output Total 1035 ml 80 ml 140 ml Balance 1149.17 ml 975.99 ml 807.23 ml Results/Medications Result Diagram: 08/22/16 0610 08/22/16 0430 Results 24 hrs Laboratory Tests Test 08/21/16 12:43 08/21/16 18:10 08/22/16 04:30 08/22/16 06:10 Lactic Acid Level 2.0 1.7 Anion Gap 16 Blood Urea Nitrogen 54 H Calcium Level 6.8 L Carbon Dioxide Level 23 Chloride Level 106 Creatinine 6.26 H Glucose Level 94 Magnesium Level 2.3 Phosphorus Level 6.4 H Potassium Level 4.1 Sodium Level 141 Eosinophils # Eosinophils % Hematocrit 26.3 #L Hemoglobin 9.1 #L Mean Corpuscular Hemoglobin 30.3 Mean Corpuscular Hemoglobin Concent 34.6 Mean Corpuscular Volume 87.7 Mean Platelet Volume 9.7 Neutrophils # Neutrophils % Platelet Count 229 # Red Blood Count 3.00 #L Red Cell Distribution Width 13.8 White Blood Count 13.3 H Medications Current Medications Morphine Sulfate (morphine) 2 mg Q4H PRN IV SEVERE PAIN LEVEL 7-10 Last administered on 08/20/16 04:38; Admin Dose 2 MG; Start 08/19/16 at 19:30 Acetaminophen/ Hydrocodone Bitart ([place] (7.5-325)) 1 tab Q6H PRN PO PAIN Last administered on 08/20/16 09:34; Admin Dose 1 TAB; Start 08/19/16 at 21:30 IV Flush (NS 10 ml) 10 ml PRN PRN IV IV PROTOCOL; Start 08/20/16 at 19:30 Oxycodone/ Acetaminophen (Percocet (5/ 325)) 1 tab Q4H PRN PO MILD PAIN (1-3); Start 08/20/16 at 21:30 Oxycodone/ Acetaminophen (Percocet (5/ 325)) 2 tab Q4H PRN PO MODERATE PAIN (4- 6); Start 08/20/16 at 21:30 Morphine Sulfate (morphine) 2 mg ONCE PRN IV SEVERE PAIN LEVEL 7-10; Start 08/20 at 21:30 Ondansetron HCl (Zofran Inj) 4 mg Q6H PRN IV NAUSEA; Start 08/20/16 at 21:30 Pantoprazole 40 mg 40 mg BID@06,18 IV Last administered on 08/22/16 06:07; Admin Dose 40 MG; Start 08/21/16 at 06:00 Fentanyl 100 ml @ 2.5 mls/hr TITRATE IV Last administered on 08/21/16 23:45; Admin Dose 7.5 MLS/HR; Start 08/20/16 at 22:00 Midazolam HCl 50 ml @ 1 mls/hr TITRATE IV Last administered on 08/22/16 01:42 ; Admin Dose 7 MLS/HR; Start 08/20/16 at 22:00 Metronidazole 100 ml @ 100 mls/hr Q8 IVPB Last administered on 08/22/16 06:07 ; Admin Dose 100 MLS/HR; Start 08/21/16 at 06:00 Norepinephrine 16 mg/Dextrose 500 ml @ 1.87 mls/hr TITRATE IV Last administered on 08/21/16 14:31; Admin Dose 28.12 MLS/HR; Start 08/21/16 at 07: 00 Sodium Chloride (NS) 1,000 ml @ 100 mls/hr Q10H IV Last administered on 07:02; Admin Dose 100 MLS/HR; Start 08/21/16 at 08:30 Acetaminophen 650 mg 650 mg Q6H PRN [place] FEVER Last administered on 08/21/16 11: 41; Admin Dose 650 MG; Start 08/21/16 at 11:30 Cefazolin Sodium (Ancef 1 Gm/50 ml (Pmx)) 50 ml @ 100 mls/hr Q24H IVPB ; Start 08/22/16 at 21:00 Assessment/Plan Chief Complaint/Hosp Course ASSESSMENT AND PLAN: 1. Oligoanuric acute kidney injury with previous baseline creatinine of 0.9 mg/ dL. Etiology of acute kidney injury is secondary to acute tubular necrosis due to nephrotoxic exposure from methamphetamine and sepsis. The patient has shown no evidence of renal recovery. He is currently hyperkalemic. Plan is for hemodialysis. We will minimize ultrafiltration. We will anticipate daily dialysis over the next 2 to 3 days for solute clearance. We will monitor for any signs of renal recovery. 2. Hyperkalemia secondary to acute kidney injury. Plan for hemodialysis tomorrow. We will dialyze on a 2K bath. 3. Mineral bone disorder. The patient is hypocalcemic and hyperphosphatemic. The patient will be dialyzed today on a 2.5 calcium bath. 4. Acute abdomen with perforated antral ulcer. The patient is status post exploratory laparotomy with closure of antral ulcer and placement of drain. At this point, we will continue broad spectrum antibiotics and follow up with general surgery. 5. Sepsis secondary to perforated viscus. The patient's broad spectrum antibiotics will be continued. Cultures have been reviewed. Consider ID evaluation. 6. Ventilator dependent respiratory failure. Vent settings have been reviewed. ABG has been reviewed. Continue to monitor. 7. Acute encephalopathy with recent history of polysubstance abuse. Continue to monitor. 8. Tachycardia. Etiology is multifactorial secondary to pain, sepsis, possible withdrawal. Continue current medical management. Consider cardiology evaluation. Continue pain control. 9. Metabolic acidosis secondary to acute kidney injury. The patient will be dialyzed on a bicarbonate bath. Problems: ANA HUMPHREY MD Aug 22, 2016 10:20
[2016-08-22 10:25] LABS: LYMPHOCYTES # 1.1 10^3/ul (0.8-2.9); MONOCYTE # 0.8 10^3/ul (0.3-0.9); NEUTROPHIL # 10.8 10^3/ul (1.6-7.5)
--- NOTE | 2016-08-22 11:43 | PN ---
DATE: 08/22/2016 SUBJECTIVE: The patient continues mechanical ventilation, remains intubated. Started hemodialysis yesterday. Currently is off vasopressor support. Continues fentanyl and Versed. He is scheduled f or hemodialysis this morning. PHYSICAL EXAMINATION: VITAL SIGNS: Temperature 98, pulse is 110, blood pressure 113/68, O2 saturation 96% on mechanical v entilation. HEENT: Orally intubated. Dry mucous membranes. Pupils are equal and reactive to light. CARDIAC EXAM: S1, S2. No added sounds or murmurs. CHEST: Diminished air entry bilaterally. ABDOMEN: Soft, nontender. No guarding or rebound. EXTREMITIES: No cyanosis or clubbing. Edema of +1. NEUROLOGIC: Generalized weakness. LABORATORY: White count 13.3, hemoglobin 9.1, platelets of 229, BUN 54, creatinine 6.26. Arterial blood gas yesterday, pH of 7.28, pCO2 of 32, PaO2 of 126. IMPRESSION: 1. Vent-dependent respiratory failure. 2. Pulmonary edema. 3. End-stage renal failure, now requiring hemodialysis. 4. Recent gastrointestinal bleed, status post exploratory laparotomy, with oversew of perforated an tral ulcer and drain placement. PLAN: 1. Continue surgical recommendations. 2. Continued hemodialysis. 3. Continue mechanical ventilation. 4. Will attempt CPAP weaning trial tomorrow if the patient's hemodynamic and electrolyte status rem ains stable. Dictated By: MARYAM MONTERO/TOMMY Conf#: [id number] DID#: [id number]
--- NOTE | 2016-08-22 11:45 | PN ---
DATE: 08/22/2016 Postoperative day #2. The patient is now off pressors. OBJECTIVE VITAL SIGNS: He is afebrile, but his T-max was 102.9 yesterday at 11:00 a.m. He is still on the ve ntilator and will be getting another dialysis today. ABDOMEN: His abdominal examination is benign and the KARISSA drainage is serous. LABORATORY DATA: Hematocrit is 26.3 with a white count of 13,300, platelets are 229. BUN is 54, wi th a creatinine of 6.26. PLAN: Continue aggressive medical management. Hemodialysis pending in approximately 2 hours. Dictated By: TIFFANI ALCANTAR/TOMMY Conf#: [id number] DID#: [id number]
[2016-08-22] MEDS: FENTAnyl (DRIP) 1000 mcg/100mL 100 ML IV SCH (11:47)
[2016-08-22] MEDS ORDERED: HEPARIN 1000 UNITS/ML 10 ML INJ ONE (14:27)
[2016-08-22] MEDS ORDERED: HEPARIN 1000 UNITS/ML 10 ML INJ CATHETER ONE (14:30)
--- NOTE | 2016-08-22 16:51 | PN ---
Date/Time of Note Date/Time of Note DATE: 08/22/16 TIME: 16:47 Assessment/Plan VTE Prophylaxis VTE Prophylaxis Intervention: SCD's Lines/Catheters IV [facility] rita cath Assessment/Plan Chief Complaint/Hosp Course 1. Abdominal pain secondary to perforated gastric ulcer status post surgical repair Continue vent support, continue ICU monitoring 2. Acute kidney injury Continue dialysis per nephrology 3. Smoking history Advise smoking cessation 4. Substance abuse Toxicology is positive for amphetamines 5. SIRS reactive secondary to #1 Continue Zosyn as well as Flagyl and Ancef Prophylaxis: PPI and SCDs Problems: Subjective 24 Hr Interval Summary Subjective hx not possible: pt non-verbal Exam/Review of Systems Vital Signs Vitals Vital Signs Date Time Temp Pulse Resp B/P Pulse Ox O2 Delivery O2 Flow Rate FiO2 08/22/16 16:15 105 08/22/16 15:30 24 98 40 08/22/16 14:00 114/66 Mechanical Ventilator 08/22/16 12:00 98.9 Intake and Output 08/21/16 08/21/16 08/22/16 15:00 23:00 07:00 Intake Total 2184.17 ml 1055.99 ml 947.23 ml Output Total 1035 ml 80 ml 140 ml Balance 1149.17 ml 975.99 ml 807.23 ml Exam Constitutional: non-verbal ENMT: intubated Respiratory: clear to auscultation Cardiovascular: regular rate and rhythm Gastrointestinal: soft, No distended Musculoskeletal: nl extremities to inspection Results Result Diagram: 08/22/16 0610 08/22/16 0430 Results 24 hrs Laboratory Tests Test 08/21/16 18:10 08/22/16 04:30 08/22/16 06:10 Lactic Acid Level 1.7 Anion Gap 16 Blood Urea Nitrogen 54 H Calcium Level 6.8 L Carbon Dioxide Level 23 Chloride Level 106 Creatinine 6.26 H Glucose Level 94 Magnesium Level 2.3 Phosphorus Level 6.4 H Potassium Level 4.1 Sodium Level 141 Band Neutrophils % 5.0 Eosinophils # Eosinophils % Hematocrit 26.3 #L Hemoglobin 9.1 #L Lymphocytes # 1.1 Lymphocytes % 8.0 L Mean Corpuscular Hemoglobin 30.3 Mean Corpuscular Hemoglobin Concent 34.6 Mean Corpuscular Volume 87.7 Mean Platelet Volume 9.7 Monocytes # 0.8 Monocytes % 6.0 Neutrophils # 10.8 H Neutrophils % 81.0 H Platelet Count 229 # Red Blood Count 3.00 #L Red Cell Distribution Width 13.8 White Blood Count 13.3 H Medications Medications Current Medications Morphine Sulfate (morphine) 2 mg Q4H PRN IV SEVERE PAIN LEVEL 7-10 Last administered on 08/20/16 04:38; Admin Dose 2 MG; Start 08/19/16 at 19:30 Acetaminophen/ Hydrocodone Bitart ([place] (7.5-325)) 1 tab Q6H PRN PO PAIN Last administered on 08/20/16 09:34; Admin Dose 1 TAB; Start 08/19/16 at 21:30 IV Flush (NS 10 ml) 10 ml PRN PRN IV IV PROTOCOL; Start 08/20/16 at 19:30 Oxycodone/ Acetaminophen (Percocet (5/ 325)) 1 tab Q4H PRN PO MILD PAIN (1-3); Start 08/20/16 at 21:30 Oxycodone/ Acetaminophen (Percocet (5/ 325)) 2 tab Q4H PRN PO MODERATE PAIN (4- 6); Start 08/20/16 at 21:30 Morphine Sulfate (morphine) 2 mg ONCE PRN IV SEVERE PAIN LEVEL 7-10; Start 08/20 at 21:30 Ondansetron HCl (Zofran Inj) 4 mg Q6H PRN IV NAUSEA; Start 08/20/16 at 21:30 Pantoprazole 40 mg 40 mg BID@06,18 IV Last administered on 08/22/16 06:07; Admin Dose 40 MG; Start 08/21/16 at 06:00 Fentanyl 100 ml @ 2.5 mls/hr TITRATE IV Last administered on 08/22/16 11:47; Admin Dose 5 MLS/HR; Start 08/20/16 at 22:00 Midazolam HCl 50 ml @ 1 mls/hr TITRATE IV Last administered on 08/22/16 01:42 ; Admin Dose 7 MLS/HR; Start 08/20/16 at 22:00 Metronidazole 100 ml @ 100 mls/hr Q8 IVPB Last administered on 08/22/16 13:10 ; Admin Dose 100 MLS/HR; Start 08/21/16 at 06:00 Norepinephrine 16 mg/Dextrose 500 ml @ 1.87 mls/hr TITRATE IV Last administered on 08/21/16 14:31; Admin Dose 28.12 MLS/HR; Start 08/21/16 at 07: 00 Sodium Chloride (NS) 1,000 ml @ 100 mls/hr Q10H IV Last administered on 07:02; Admin Dose 100 MLS/HR; Start 08/21/16 at 08:30 Acetaminophen 650 mg 650 mg Q6H PRN [place] FEVER Last administered on 08/21/16 11: 41; Admin Dose 650 MG; Start 08/21/16 at 11:30 Cefazolin Sodium (Ancef 1 Gm/50 ml (Pmx)) 50 ml @ 100 mls/hr Q24H IVPB ; Start 08/22/16 at 21:00 BAHMAN FISH 18, 2017 16:51
[2016-08-22] MEDS: CEFAZOLIN 1 GM/50 ML (PMX) 50 ML IVPB SCH (21:03)
[2016-08-23] VITALS (57 sets, daily range): BP systolic 107–125; BP diastolic 62–81; PULSE 86–113; RESP 17–25
[2016-08-23] MEDS: SOD CHLORIDE 0.9% 1,000 ML IV SCH ×4 (00:30→20:30)
[2016-08-23 04:37] LABS: ADD SCAN DIFF NO
[2016-08-23 04:46] LABS: BASOPHILS % 0.1 % (0.0-2.0); EOSINOPHILS % 0.2 % (0.0-7.0); HEMATOCRIT 22.5 % (42.0-52.0); HEMOGLOBIN 7.6 g/dl (14.0-18.0); LYMPHOCYTES # 1.3 10^3/ul (0.8-2.9); MEAN CORPUSCULAR HGB CONC 33.8 g/dl (32.0-37.0); MEAN CORPUSCULAR VOLUME 88.9 fl (82.0-101.0); MONOCYTES % 6.6 % (0.0-11.0); NEUTROPHIL # 12.2 10^3/ul (1.6-7.5); NEUTROPHILS % 83.4 % (39.0-77.0); PLATELET COUNT 198 10^3/UL (140-415); RED BLOOD COUNT 2.53 10^6/ul (4.70-6.10); RED CELL DISTRIBUTION WIDTH 14.1 % (11.5-14.5); WHITE BLOOD COUNT 14.6 10^3/ul (4.8-10.8)
[2016-08-23 04:57] LABS: POTASSIUM 3.6 mmol/L (3.5-5.1)
[2016-08-23 05:01] LABS: CALCIUM 7.1 mg/dl (8.4-10.2); MAGNESIUM 2.5 mg/dl (1.7-2.5)
[2016-08-23 05:12] LABS: CREATININE 5.42 mg/dl (0.61-1.24)
[2016-08-23] MEDS: metroNIDAZOLE 500 MG/NS (PMX) 100 ML IVPB SCH ×3 (06:19→21:44)
[2016-08-23] MEDS: PANTOPRAZOLE 40 MG INJ IV SCH ×2 (06:19→17:57)
[2016-08-23] MEDS: FENTAnyl (DRIP) 1000 mcg/100mL 100 ML IV SCH (06:24)
[2016-08-23] MEDS: ACETAMINOPHEN 650 MG SUPP PR PRN ×2 (08:45→19:22)
--- NOTE | 2016-08-23 09:09 | CONS ---
Date/Time of Note Date/Time of Note DATE: 08/23/16 TIME: 09:04 Consult Date/Type/Reason Admit Date/Time Aug 19, 2016 at 18:21 Initial Consult Date 08/21/16 Type of Consultation: neph Subjective This is a 36-year-old male with a past medical history of polysubstance abuse, marijuana use, history of heavy alcohol use, who was transferred to [facility] from [place] with episodes of abdominal pain. The patient had a stat CT scan of abdomen and pelvis which showed findings of free air. The patient was taken to emergent laparotomy which found perforated antral ulcer. The patient was transferred to intensive care unit, intubated, critical condition. The patient remains oliguric, anuric, with a urine output of 120 mL. Required hd emergently which he tolerated. last hd yesterday. poc reviewed with dr. nevarez. OBJECTIVE: HEENT: Head is normocephalic. Pupils are reactive. NECK: Supple. HEART: Regular rate. LUNGS: Show diminished breath sounds at base. ABDOMEN: Soft, nontender to palpation. Positive laparotomy with dressing clean , dry, and intact. EXTREMITIES: Negative for clubbing, cyanosis, or edema. DERMATOLOGIC: No rashes. MUSCULOSKELETAL: No joint effusions. NEUROLOGIC: Limited exam as the patient is sedated. Objective Vital Signs Date Time Temp Pulse Resp B/P Pulse Ox O2 Delivery O2 Flow Rate FiO2 08/23/16 07:00 98 24 116/75 98 Mechanical Ventilator 08/23/16 05:08 40 08/23/16 04:00 98.9 Intake and Output 08/22/16 08/22/16 08/23/16 15:00 23:00 07:00 Intake Total 1044.0 ml 1290 ml 840 ml Output Total 180 ml 1300 ml 135 ml Balance 864.0 ml -10 ml 705 ml Results/Medications Result Diagram: 08/23/16 0330 08/23/16 0330 Results 24 hrs Laboratory Tests Test 08/23/16 03:30 Anion Gap 15 Basophils # 0.0 Basophils % 0.1 Blood Urea Nitrogen 61 H Calcium Level 7.1 L Carbon Dioxide Level 25 Chloride Level 105 Creatinine 5.42 H Eosinophils # 0.0 Eosinophils % 0.2 Glucose Level 81 Hematocrit 22.5 L Hemoglobin 7.6 L Lymphocytes # 1.3 Lymphocytes % 9.0 L Magnesium Level 2.5 Mean Corpuscular Hemoglobin 30.0 Mean Corpuscular Hemoglobin Concent 33.8 Mean Corpuscular Volume 88.9 Mean Platelet Volume 10.0 Monocytes # 1.0 H Monocytes % 6.6 Neutrophils # 12.2 H Neutrophils % 83.4 H Nucleated Red Blood Cells # 0.0 Nucleated Red Blood Cells % 0.0 Phosphorus Level 5.0 H Platelet Count 198 Potassium Level 3.6 Red Blood Count 2.53 L Red Cell Distribution Width 14.1 Sodium Level 141 White Blood Count 14.6 H Medications Current Medications Morphine Sulfate (morphine) 2 mg Q4H PRN IV SEVERE PAIN LEVEL 7-10 Last administered on 08/20/16 04:38; Admin Dose 2 MG; Start 08/19/16 at 19:30 Acetaminophen/ Hydrocodone Bitart ([place] (7.5-325)) 1 tab Q6H PRN PO PAIN Last administered on 08/20/16 09:34; Admin Dose 1 TAB; Start 08/19/16 at 21:30 IV Flush (NS 10 ml) 10 ml PRN PRN IV IV PROTOCOL; Start 08/20/16 at 19:30 Oxycodone/ Acetaminophen (Percocet (5/ 325)) 1 tab Q4H PRN PO MILD PAIN (1-3); Start 08/20/16 at 21:30 Oxycodone/ Acetaminophen (Percocet (5/ 325)) 2 tab Q4H PRN PO MODERATE PAIN (4- 6); Start 08/20/16 at 21:30 Morphine Sulfate (morphine) 2 mg ONCE PRN IV SEVERE PAIN LEVEL 7-10; Start 08/20 at 21:30 Ondansetron HCl (Zofran Inj) 4 mg Q6H PRN IV NAUSEA; Start 08/20/16 at 21:30 Pantoprazole 40 mg 40 mg BID@06,18 IV Last administered on 08/23/16 06:19; Admin Dose 40 MG; Start 08/21/16 at 06:00 Fentanyl 100 ml @ 2.5 mls/hr TITRATE IV Last administered on 08/23/16 06:24; Admin Dose 5 MLS/HR; Start 08/20/16 at 22:00 Midazolam HCl 50 ml @ 1 mls/hr TITRATE IV Last administered on 08/22/16 01:42 ; Admin Dose 7 MLS/HR; Start 08/20/16 at 22:00 Metronidazole 100 ml @ 100 mls/hr Q8 IVPB Last administered on 08/23/16 06:19 ; Admin Dose 100 MLS/HR; Start 08/21/16 at 06:00 Norepinephrine 16 mg/Dextrose 500 ml @ 1.87 mls/hr TITRATE IV Last administered on 08/21/16 14:31; Admin Dose 28.12 MLS/HR; Start 08/21/16 at 07: 00 Sodium Chloride (NS) 1,000 ml @ 100 mls/hr Q10H IV Last administered on 06:22; Admin Dose 100 MLS/HR; Start 08/21/16 at 08:30 Acetaminophen 650 mg 650 mg Q6H PRN [place] FEVER Last administered on 08/23/16 08: 45; Admin Dose 650 MG; Start 08/21/16 at 11:30 Cefazolin Sodium (Ancef 1 Gm/50 ml (Pmx)) 50 ml @ 100 mls/hr Q24H IVPB Last administered on 08/22/16 21:03; Admin Dose 100 MLS/HR; Start 08/22/16 at 21:00 Assessment/Plan Chief Complaint/Hosp Course 1. Oligoanuric acute kidney injury with previous baseline creatinine of 0.9 mg/ dL. Etiology of acute kidney injury is secondary to acute tubular necrosis due to nephrotoxic exposure from methamphetamine and sepsis. The patient has shown no evidence of renal recovery. He is currently hyperkalemic. Plan is for hemodialysis. We will minimize ultrafiltration. We will monitor with dialysis over the next 2 to 3 days for solute clearance. We will monitor for any signs of renal recovery. 2. Hyperkalemia secondary to acute kidney injury. Plan for hemodialysis tomorrow. We will dialyze on a 2K bath. 3. Mineral bone disorder. The patient is hypocalcemic and hyperphosphatemic. The patient will be dialyzed today on a 2.5 calcium bath. 4. Acute abdomen with perforated antral ulcer. The patient is status post exploratory laparotomy with closure of antral ulcer and placement of drain. At this point, we will continue broad spectrum antibiotics and follow up with general surgery. 5. Sepsis secondary to perforated viscus. The patient's broad spectrum antibiotics will be continued. Cultures have been reviewed. Consider ID evaluation. 6. Ventilator dependent respiratory failure. Vent settings have been reviewed. ABG has been reviewed. Continue to monitor. 7. Acute encephalopathy with recent history of polysubstance abuse. Continue to monitor. 8. Tachycardia. Etiology is multifactorial secondary to pain, sepsis, possible withdrawal. Continue current medical management. Consider cardiology evaluation. Continue pain control. 9. Metabolic acidosis secondary to acute kidney injury. The patient will be dialyzed on a bicarbonate bath. 10. anemia- further decline. consider transfusion. Problems: ANA HUMPHREY MD Aug 23, 2016 09:09
--- NOTE | 2016-08-23 10:37 | RADRPT ---
PROCEDURE: XR Chest. CLINICAL INDICATION: 36-year-old male with pneumonia/CHF. TECHNIQUE: Single frontal view of the chest was obtained COMPARISON: Chest x-ray 08/20/2016 10:28 p.m. FINDINGS: The soft tissues are normal. The bony elements are poorly visualized due to underpenetration of the radiograph. The heart, cardiomediastinal silhouette, pulmonary vasculature and hilar structures ar e normal. A PICC line catheter enters left arm with its tip in the right atrium. An endotracheal tu be is positioned at T3-4. There are bilateral perihilar and basilar infiltrates which are slightly w orse. A trace right pleural effusion is present. IMPRESSION: 1. There are bilateral perihilar and basilar infiltrates which may be the result of pulmonary edema or pneumonia which have worsened slightly. Trace right pleural effusion. 2. The PICC line catheter tip is in the right atrium. 3. The endotracheal tube is well-positioned at T3-4. RPTAT:AAJJ Physician Magnus Date Time Electronically viewed and signed by Physician Magnus on 08/23/2016 10:37 JM/
--- NOTE | 2016-08-23 11:47 | PN ---
Date/Time of Note Date/Time of Note DATE: 08/23/16 TIME: 11:45 Assessment/Plan VTE Prophylaxis VTE Prophylaxis Intervention: SCD's Lines/Catheters IV Catheter Type (from Nrs): Devan Assessment/Plan Chief Complaint/Hosp Course 1. Abdominal pain secondary to perforated gastric ulcer status post surgical repair Continue vent support, continue ICU monitoring 2. Acute kidney injury Continue dialysis per nephrology 3. Smoking history Advise smoking cessation 4. Substance abuse Toxicology is positive for amphetamines 5. SIRS reactive secondary to #1 Continue Zosyn as well as Flagyl and Ancef 6. Resp Failure cont vent support, wean off as able, Pulm on the case Prophylaxis: PPI and SCDs Problems: Subjective 24 Hr Interval Summary Subjective hx not possible: pt non-verbal Exam/Review of Systems Vital Signs Vitals Vital Signs Date Time Temp Pulse Resp B/P Pulse Ox O2 Delivery O2 Flow Rate FiO2 08/23/16 11:30 98 24 116/76 99 Mechanical Ventilator 08/23/16 08:00 100.7 08/23/16 05:08 40 Intake and Output 08/22/16 08/22/16 08/23/16 15:00 23:00 07:00 Intake Total 1044.0 ml 1290 ml 840 ml Output Total 180 ml 1300 ml 135 ml Balance 864.0 ml -10 ml 705 ml Exam Constitutional: non-verbal ENMT: intubated Respiratory: clear to auscultation Cardiovascular: regular rate and rhythm Gastrointestinal: soft, No distended Musculoskeletal: nl extremities to inspection Results Result Diagram: 08/23/16 0330 08/23/16 0330 Results 24 hrs Laboratory Tests Test 08/23/16 03:30 Anion Gap 15 Basophils # 0.0 Basophils % 0.1 Blood Urea Nitrogen 61 H Calcium Level 7.1 L Carbon Dioxide Level 25 Chloride Level 105 Creatinine 5.42 H Eosinophils # 0.0 Eosinophils % 0.2 Glucose Level 81 Hematocrit 22.5 L Hemoglobin 7.6 L Lymphocytes # 1.3 Lymphocytes % 9.0 L Magnesium Level 2.5 Mean Corpuscular Hemoglobin 30.0 Mean Corpuscular Hemoglobin Concent 33.8 Mean Corpuscular Volume 88.9 Mean Platelet Volume 10.0 Monocytes # 1.0 H Monocytes % 6.6 Neutrophils # 12.2 H Neutrophils % 83.4 H Nucleated Red Blood Cells # 0.0 Nucleated Red Blood Cells % 0.0 Phosphorus Level 5.0 H Platelet Count 198 Potassium Level 3.6 Red Blood Count 2.53 L Red Cell Distribution Width 14.1 Sodium Level 141 White Blood Count 14.6 H Medications Medications Current Medications Morphine Sulfate (morphine) 2 mg Q4H PRN IV SEVERE PAIN LEVEL 7-10 Last administered on 08/20/16 04:38; Admin Dose 2 MG; Start 08/19/16 at 19:30 Acetaminophen/ Hydrocodone Bitart ([place] (7.5-325)) 1 tab Q6H PRN PO PAIN Last administered on 08/20/16 09:34; Admin Dose 1 TAB; Start 08/19/16 at 21:30 IV Flush (NS 10 ml) 10 ml PRN PRN IV IV PROTOCOL; Start 08/20/16 at 19:30 Oxycodone/ Acetaminophen (Percocet (5/ 325)) 1 tab Q4H PRN PO MILD PAIN (1-3); Start 08/20/16 at 21:30 Oxycodone/ Acetaminophen (Percocet (5/ 325)) 2 tab Q4H PRN PO MODERATE PAIN (4- 6); Start 08/20/16 at 21:30 Morphine Sulfate (morphine) 2 mg ONCE PRN IV SEVERE PAIN LEVEL 7-10; Start 08/20 at 21:30 Ondansetron HCl (Zofran Inj) 4 mg Q6H PRN IV NAUSEA; Start 08/20/16 at 21:30 Pantoprazole 40 mg 40 mg BID@06,18 IV Last administered on 08/23/16 06:19; Admin Dose 40 MG; Start 08/21/16 at 06:00 Fentanyl 100 ml @ 2.5 mls/hr TITRATE IV Last administered on 08/23/16 06:24; Admin Dose 5 MLS/HR; Start 08/20/16 at 22:00 Midazolam HCl 50 ml @ 1 mls/hr TITRATE IV Last administered on 08/22/16 01:42 ; Admin Dose 7 MLS/HR; Start 08/20/16 at 22:00 Metronidazole 100 ml @ 100 mls/hr Q8 IVPB Last administered on 08/23/16 06:19 ; Admin Dose 100 MLS/HR; Start 08/21/16 at 06:00 Norepinephrine 16 mg/Dextrose 500 ml @ 1.87 mls/hr TITRATE IV Last administered on 08/21/16 14:31; Admin Dose 28.12 MLS/HR; Start 08/21/16 at 07: 00 Sodium Chloride (NS) 1,000 ml @ 100 mls/hr Q10H IV Last administered on 06:22; Admin Dose 100 MLS/HR; Start 08/21/16 at 08:30 Acetaminophen 650 mg 650 mg Q6H PRN [place] FEVER Last administered on 08/23/16 08: 45; Admin Dose 650 MG; Start 08/21/16 at 11:30 Cefazolin Sodium (Ancef 1 Gm/50 ml (Pmx)) 50 ml @ 100 mls/hr Q24H IVPB Last administered on 08/22/16 21:03; Admin Dose 100 MLS/HR; Start 08/22/16 at 21:00 BAHMAN FISH Aug 23, 2016 11:47
--- NOTE | 2016-08-23 12:23 | PN ---
DATE: 08/23/2016 PULMONARY FOLLOWUP SUBJECTIVE: The patient currently remains stable this morning, intubated on mechanical ventilation. Grimaces to painful stimuli, but not opening eyes or following commands. OBJECTIVE: VITAL SIGNS: Temperature 98, pulse is 116/75, O2 saturation 98% on 40% FIO2, orally intubated. HEENT: Dry mucous membranes. Pupils equal and reactive to light. CARDIAC: S1, S2, no added sounds or murmurs. CHEST: Diminished air entry bilaterally. ABDOMEN: Soft, nontender. No guarding or rebound. EXTREMITIES: No cyanosis, clubbing, edema. NEUROLOGIC: Generalized weakness. LABORATORY DATA: White count 14.6, hemoglobin now is 7.6, platelets of 198. BUN 61, creatinine 5.4 2. IMPRESSION AND PLAN: 1. History of substance abuse. 2. Respiratory failure. 3. Perforated gastric ulcer status post repair. 4. Acute kidney injury, now dialysis dependent. PLAN: 1. Continue mechanical ventilation. 2. Tube feeding. 3. Hemodialysis as tolerated. 4. Anticipate CPAP weaning trial once off sedation. Overall, prognosis remains guarded. Dictated By: MARYAM MONTERO/TOMMY Conf#: [id number] DID#: [id number]
--- NOTE | 2016-08-23 17:24 | PN ---
DATE: SUBJECTIVE: Postoperative day #3. The patient remains on a ventilator and is unresponsive. OBJECTIVE: ABDOMEN: Although his abdominal examination is relatively benign and KARISSA drainage is just serosangui neous, he continues to do poorly. LABORATORY DATA: Hematocrit this morning is 22.5 with a white count of 14,600, BUN is 61, creatinin e is 5.4. PLAN: The patient is being started on a trial of CPAP. The prognosis is guarded as the patient is failing to make any significant progress. Dictated By: TIFFANI ALCANTAR/TOMMY Conf#: [id number] DID#: [id number]
[2016-08-23] MEDS: CEFAZOLIN 1 GM/50 ML (PMX) 50 ML IVPB SCH (20:30)
[2016-08-23] MEDS: morphine 2 MG INJ IV PRN (23:51)
[2016-08-24] VITALS (49 sets, daily range): BP systolic 93–126; BP diastolic 57–78; PULSE 71–102; RESP 22–24
[2016-08-24 05:03] LABS: ADD SCAN DIFF NO
[2016-08-24 05:06] LABS: BASOPHILS % 0.2 % (0.0-2.0); EOSINOPHILS # 0.1 10^3/ul (0.0-0.5); HEMATOCRIT 26.1 % (42.0-52.0); HEMOGLOBIN 8.8 g/dl (14.0-18.0); LYMPHOCYTES # 1.3 10^3/ul (0.8-2.9); LYMPHOCYTES % 9.9 % (15.0-51.0); MEAN CORPUSCULAR HEMOGLOBIN 30.1 pg (29.0-33.0); MEAN CORPUSCULAR HGB CONC 33.7 g/dl (32.0-37.0); MEAN CORPUSCULAR VOLUME 89.4 fl (82.0-101.0); MEAN PLATELET VOLUME 10.1 fl (7.4-10.4); MONOCYTE # 1.1 10^3/ul (0.3-0.9); MONOCYTES % 8.6 % (0.0-11.0); NEUTROPHILS % 79.1 % (39.0-77.0); PLATELET COUNT 180 10^3/UL (140-415); RED BLOOD COUNT 2.92 10^6/ul (4.70-6.10); RED CELL DISTRIBUTION WIDTH 15.6 % (11.5-14.5); WHITE BLOOD COUNT 12.6 10^3/ul (4.8-10.8)
[2016-08-24 05:29] LABS: POTASSIUM 3.4 mmol/L (3.5-5.1)
[2016-08-24] MEDS: PANTOPRAZOLE 40 MG INJ IV SCH ×2 (05:31→17:41)
[2016-08-24] MEDS: metroNIDAZOLE 500 MG/NS (PMX) 100 ML IVPB SCH ×3 (05:31→21:31)
[2016-08-24] MEDS: SOD CHLORIDE 0.9% 1,000 ML IV SCH (05:31)
[2016-08-24 05:32] LABS: CALCIUM 7.3 mg/dl (8.4-10.2); PHOSPHORUS 4.6 mg/dl (2.5-4.9)
[2016-08-24 05:42] LABS: CREATININE 5.24 mg/dl (0.61-1.24)
--- NOTE | 2016-08-24 06:53 | RADRPT ---
PROCEDURE: XR Chest. CLINICAL INDICATION: Respiratory failure TECHNIQUE: An AP view of the chest was obtained. COMPARISON: Chest x-ray dated 08/23/2016 FINDINGS: The endotracheal tube tip is approximately 3.0 cm above the gavin. The tip of the enteric tube pr ojects over the left upper quadrant. There is a left upper extremity PICC line with tip in the uppe r right atrium. There is prominence of the interstitial markings with small to moderate bilateral pleural effusions . No focal airspace opacification or pneumothorax is seen. The cardiomediastinal silhouette is wi thin normal limits for size. The osseous structures are unremarkable. IMPRESSION: 1. Findings suggestive of interstitial edema with small to moderate bilateral pleural effusions. Fi ndings are mildly increased when compared to the prior examination. 2. Tubes and lines, as described above. RPTAT: HH .Shilpa Song MD, MD Date Time Electronically viewed and signed by .Shilpa Song MD, MD on 08/24/2016 06:52 .G/
[2016-08-24] MEDS ORDERED: POTASSIUM CHLORIDE 250 ML IVPB ONE (08:00)
[2016-08-24] MEDS: DEXTROSE 5%-0.45% NACL 1,000 ML IV SCH (08:02)
--- NOTE | 2016-08-24 09:39 | PN ---
Date/Time of Note Date/Time of Note DATE: 08/24/16 TIME: 09:31 Assessment/Plan VTE Prophylaxis VTE Prophylaxis Intervention: SCD's Lines/Catheters IV Catheter Type (from Nrs): JAMES Urinary Cath still in place: Yes Reason Cath still needed: other (indicate) Assessment/Plan Chief Complaint/Hosp Course Chief Complaint/Hosp Course 1. Abdominal pain secondary to perforated gastric ulcer status post surgical repair Continue vent support, continue ICU monitoring 2. Acute kidney injury Continue dialysis per nephrology 3. Smoking history Advise smoking cessation 4. Substance abuse Toxicology is positive for amphetamines 5. SIRS reactive secondary to #1 Continue Zosyn as well as Flagyl and Ancef 6. Resp Failure cont vent support, wean off as able, Pulm on the case We will continue monitor patient closely for recommendation management treatment as clinical course Prognosis guarded Start TPN Problems: Subjective 24 Hr Interval Summary Free Text/Dictation Patient does not respond to pain or verbal stimuli despite of being off sedation Off sedation and pressors Family at the bedside Exam/Review of Systems Vital Signs Vitals Vital Signs Date Time Temp Pulse Resp B/P Pulse Ox O2 Delivery O2 Flow Rate FiO2 08/24/16 08:19 80 24 99 30 08/24/16 06:00 110/72 Mechanical Ventilator 08/24/16 04:00 99.2 Intake and Output 08/23/16 08/23/16 08/24/16 15:00 23:00 07:00 Intake Total 705 ml 1000 ml 950 ml Output Total 400 ml 750 ml 465 ml Balance 305 ml 250 ml 485 ml Exam General: The patient is intubated HEENT: Atraumatic, normocephalic. The pupils are equal and round . Chest: Normal expansion of the thorax during inspiration Lungs: Clear to auscultation bilaterally Heart: Normal S1-S2, Regular rhythm and rate. Abdomen: Soft , nontender, nondistended , bowel sounds are present. Surgical site is dry and clean Extremities: Normal to inspection, no edema no cyanosis Neurologic: Patient is arousable, although does not respond to verbal stimuli Results Result Diagram: 08/24/16 0335 08/24/16 0335 Results 24 hrs Laboratory Tests Test 08/24/16 03:35 Anion Gap 16 Basophils # 0.0 Basophils % 0.2 Blood Urea Nitrogen 83 H Calcium Level 7.3 L Carbon Dioxide Level 23 Chloride Level 110 Creatinine 5.24 H Eosinophils # 0.1 Eosinophils % 1.0 Glucose Level 74 Hematocrit 26.1 L Hemoglobin 8.8 L Lymphocytes # 1.3 Lymphocytes % 9.9 L Magnesium Level 3.0 H Mean Corpuscular Hemoglobin 30.1 Mean Corpuscular Hemoglobin Concent 33.7 Mean Corpuscular Volume 89.4 Mean Platelet Volume 10.1 Monocytes # 1.1 H Monocytes % 8.6 Neutrophils # 10.0 H Neutrophils % 79.1 H Nucleated Red Blood Cells # 0.0 Nucleated Red Blood Cells % 0.0 Phosphorus Level 4.6 Platelet Count 180 Potassium Level 3.4 L Red Blood Count 2.92 L Red Cell Distribution Width 15.6 H Sodium Level 146 H White Blood Count 12.6 H Medications Medications Current Medications Morphine Sulfate (morphine) 2 mg Q4H PRN IV SEVERE PAIN LEVEL 7-10 Last administered on 08/23/16 23:51; Admin Dose 2 MG; Start 08/19/16 at 19:30 Acetaminophen/ Hydrocodone Bitart ([place] (7.5-325)) 1 tab Q6H PRN PO PAIN Last administered on 08/20/16 09:34; Admin Dose 1 TAB; Start 08/19/16 at 21:30 IV Flush (NS 10 ml) 10 ml PRN PRN IV IV PROTOCOL; Start 08/20/16 at 19:30 Oxycodone/ Acetaminophen (Percocet (5/ 325)) 1 tab Q4H PRN PO MILD PAIN (1-3); Start 08/20/16 at 21:30 Oxycodone/ Acetaminophen (Percocet (5/ 325)) 2 tab Q4H PRN PO MODERATE PAIN (4- 6); Start 08/20/16 at 21:30 Morphine Sulfate (morphine) 2 mg ONCE PRN IV SEVERE PAIN LEVEL 7-10; Start 08/20 at 21:30 Ondansetron HCl (Zofran Inj) 4 mg Q6H PRN IV NAUSEA; Start 08/20/16 at 21:30 Pantoprazole 40 mg 40 mg BID@06,18 IV Last administered on 08/24/16 05:31; Admin Dose 40 MG; Start 08/21/16 at 06:00 Fentanyl 100 ml @ 2.5 mls/hr TITRATE IV Last administered on 08/23/16 06:24; Admin Dose 5 MLS/HR; Start 08/20/16 at 22:00 Midazolam HCl 50 ml @ 1 mls/hr TITRATE IV Last administered on 08/22/16 01:42 ; Admin Dose 7 MLS/HR; Start 08/20/16 at 22:00 Metronidazole 100 ml @ 100 mls/hr Q8 IVPB Last administered on 08/24/16 05:31 ; Admin Dose 100 MLS/HR; Start 08/21/16 at 06:00 Norepinephrine/ Dextrose (Levophed/D5W) 500 ml @ 1.87 mls/hr TITRATE IV Last administered on 08/21/16 14:31; Admin Dose 28.12 MLS/HR; Start 08/21/16 at 07: 00 Acetaminophen 650 mg 650 mg Q6H PRN [place] FEVER Last administered on 08/23/16 19: 22; Admin Dose 650 MG; Start 08/21/16 at 11:30 Cefazolin Sodium 50 ml @ 100 mls/hr Q24H IVPB Last administered on 08/23/16 20:30; Admin Dose 100 MLS/HR; Start 08/22/16 at 21:00 Dextrose/Sodium Chloride 1,000 ml @ 50 mls/hr Q20H IV Last administered on 08:02; Admin Dose 50 MLS/HR; Start 08/24/16 at 08:00 Potassium Chloride (KCl 40 MEQ/250 ML NS) 250 ml @ 62.5 mls/hr ONCE ONCE IVPB Last administered on 08/24/16 08:06; Admin Dose 62.5 MLS/HR; Start 08/24/16 at 08:00; Stop 08/24/16 at 11:59 NAREN BURDEN MD Aug 24, 2016 09:39
[2016-08-24] MEDS ORDERED: TPN 1,000 ML IV SCH (10:00)
--- NOTE | 2016-08-24 10:16 | PN ---
DATE: 08/24/2016 SUBJECTIVE: The patient remains critically ill in the ICU on full ventilatory support. The patient has been weaned off pressors. Urinary output is improving, but still no evidence of clearance. Th e patient has minimal responsiveness, no other acute events noted. No hemoptysis, hematemesis or he matochezia. OBJECTIVE: VITAL SIGNS: Blood pressure is 110/72, respirations 24, pulse 80, temperature 99.2. HEENT: Head is normocephalic. NECK: Supple. HEART: Regular rate. LUNGS: Show diminished breath sounds at base. Positive crackles. ABDOMEN: Soft. Positive dressing clean, dry and intact. EXTREMITIES: Negative for clubbing, cyanosis, no edema. DERMATOLOGIC: No rashes. MUSCULOSKELETAL: No joint effusions. NEUROLOGIC: Limited exam due to lack of patient cooperation. LABORATORY DATA: Shows a sodium of 146, potassium 3.4, BUN 83, creatinine 5.24, white count 12.6, h emoglobin 8.8, hematocrit 26.1, platelet count is 180. IMAGING: The patient's chest x-ray on 08/24/2016, shows interstitial edema, bilateral pleural effus ions. ASSESSMENT AND PLAN: 1. Nonoliguric acute kidney injury with previous baseline creatinine of 0.9 mg/dL Etiology of acute kidney injury secondary to acute tubular necrosis due to nephrotoxic exposure from methamphetamine, septic acute kidney injury, shock. The patient's urinary output has been improving, although no ev idence of solute clearance at this time. Will continue intermittent hemodialysis. Plan for dialysi s today for 3 hours on a 4K bath, calcium 2.5. Will ultrafiltrate as tolerated. We will continue t o monitor for signs of recovery. 2. Hypokalemia. The patient will be dialyzed on a 4 potassium bath. We will replete with potassiu m chloride 40 mEq IV x1. 3. Mineral bone disorder. Will continue to monitor calcium and phosphorus levels. No need for natalie sphate binders. The patient will be dialyzed 2.5 calcium bath. 4. Anemia. We will continue to monitor H and H levels. 5. Perforated gastric ulcer status post repair. The patient appears clinically stable. Continue t o monitor. Follow up with general surgery. 6. Sepsis, status post shock, etiology is likely secondary to intra-abdominal source, perforated vi scus. Patient remains on antibiotic therapy, will continue, currently off pressors. Will decrease IV fluids as the patient is normotensive. 7. Volume overload. The patient has noted to bilateral pleural effusions, lower extremity edema an d interstitial edema. We will ultrafiltrate with hemodialysis. Goal is 2 to 3 liters if hemodynami clementine stable. 8. Ventilator dependent respiratory failure. Vent settings have been reviewed. ABG has been revie wed. Continue to monitor. 9. Acute encephalopathy. Etiology is likely toxic metabolic, continue to monitor. May consider ne urologic evaluation. 10. Recent history of polysubstance abuse. Continue to monitor. Please note I spent over 40 minutes of critical care time with this patient. Dictated By: SILVIA GARCIA DO NR/NTS Conf#: [id number] DID#: [id number]
--- NOTE | 2016-08-24 13:47 | PN ---
DATE: 08/24/2016 Postoperative day #4, the patient's T-max is decreased to 100.7. He continues to be minimally respo nsive and intubated. OBJECTIVE: ABDOMEN: His abdominal examination is completely benign. His incision is clean and his KARISSA drainage is serous. NG drainage is bilious. LABORATORY DATA: The patient's hematocrit today is 26.1 with a white count of 12,600, BUN is up to 83, creatinine is 5.24. PLAN: Continue aggressive medical management. Hemodialysis is pending. Prognosis is guarded. IMPRESSION: The patient will require TPN, as he has high nasogastric residuals and does have gastr ic sutures in place. Dictated By: TIFFANI ALCANTAR/TOMMY Conf#: [id number] DID#: [id number]
[2016-08-24] MEDS ORDERED: ALBUMIN HUMAN 25% 100 ML ONE (13:58)
[2016-08-24] MEDS ORDERED: ALBUMIN HUMAN 25% 100 ML IV ONE (14:00)
--- NOTE | 2016-08-24 16:28 | PN ---
DATE: 08/24/2016 SUBJECTIVE: The patient remains mostly somnolent on mechanical ventilation. Grimaces to painful st imuli, but not consistently opening eyes or following commands. PHYSICAL EXAMINATION: VITAL SIGNS: Temperature 98, pulse 80, blood pressure 110/72, O2 saturation 96% on FIO2 of 30%, ora lly intubated. Moves extremities. HEENT: Pupils are equal, round and reactive to light. CARDIAC: S1, S2, no added sounds or murmurs. CHEST: Diminished air entry bilaterally. ABDOMEN: Soft, nontender. No guarding or rebound. EXTREMITIES: No cyanosis, clubbing. Edema +1. NEUROLOGIC: Generalized weakness. LABORATORY DATA: White count 12.6, hemoglobin 8.8, platelets within normal limits. BUN 83, creatin ine 5.24. IMAGING: Chest x-ray was reviewed, shows mild incisional edema, moderate pleural effusions. IMPRESSION AND PLAN: 1. Gastrointestinal bleed status post oversew of perforated antral ulcer. 2. Encephalopathy, toxic metabolic. 3. Hypoxemic respiratory failure with evidence of volume overload. 4. History of polysubstance abuse per chart. 5. End-stage renal failure on hemodialysis. PLAN: 1. Continue hemodialysis. 2. Continue vent support. 3. The weaning when more alert. 4. Wound care. 5. Start TPN. Dictated By: MARYAM MONTERO/TOMMY Conf#: [id number] DID#: [id number]
[2016-08-24] MEDS: CEFAZOLIN 1 GM/50 ML (PMX) 50 ML IVPB SCH (21:31)
[2016-08-24] MEDS: morphine 2 MG INJ IV PRN (21:42)
[2016-08-25] VITALS (31 sets, daily range): BP systolic 98–125; BP diastolic 58–87; PULSE 73–105; RESP 19–31
[2016-08-25] MEDS: DEXTROSE 5%-0.45% NACL 1,000 ML IV SCH (04:38)
[2016-08-25 04:46] LABS: ADD SCAN DIFF NO
[2016-08-25 05:44] LABS: BASOPHILS % 0.2 % (0.0-2.0); EOSINOPHILS # 0.3 10^3/ul (0.0-0.5); EOSINOPHILS % 2.9 % (0.0-7.0); HEMATOCRIT 26.1 % (42.0-52.0); HEMOGLOBIN 8.8 g/dl (14.0-18.0); LYMPHOCYTES # 1.8 10^3/ul (0.8-2.9); LYMPHOCYTES % 15.4 % (15.0-51.0); MEAN CORPUSCULAR HEMOGLOBIN 30.1 pg (29.0-33.0); MEAN CORPUSCULAR HGB CONC 33.7 g/dl (32.0-37.0); MEAN CORPUSCULAR VOLUME 89.4 fl (82.0-101.0); MEAN PLATELET VOLUME 9.9 fl (7.4-10.4); MONOCYTES % 8.6 % (0.0-11.0); NEUTROPHIL # 8.1 10^3/ul (1.6-7.5); PLATELET COUNT 185 10^3/UL (140-415); RED BLOOD COUNT 2.92 10^6/ul (4.70-6.10); RED CELL DISTRIBUTION WIDTH 15.2 % (11.5-14.5); WHITE BLOOD COUNT 11.6 10^3/ul (4.8-10.8)
[2016-08-25 05:48] LABS: CALCIUM 7.3 mg/dl (8.4-10.2); CREATININE 2.53 mg/dl (0.61-1.24); MAGNESIUM 2.2 mg/dl (1.7-2.5); PHOSPHORUS 3.2 mg/dl (2.5-4.9); POTASSIUM 3.2 mmol/L (3.5-5.1)
[2016-08-25] MEDS: metroNIDAZOLE 500 MG/NS (PMX) 100 ML IVPB SCH ×3 (06:36→22:31)
[2016-08-25] MEDS: PANTOPRAZOLE 40 MG INJ IV SCH ×2 (06:36→18:22)
[2016-08-25] MEDS ORDERED: FUROSEMIDE 20 MG INJ IV ONE (08:00)
--- NOTE | 2016-08-25 08:15 | RADRPT ---
PROCEDURE: XR Chest. CLINICAL INDICATION: Respiratory failure TECHNIQUE: An AP view of the chest was obtained. COMPARISON: Chest x-ray dated 08/23/2016 and 08/24/2016 FINDINGS: The endotracheal tube tip is approximately 4.1 cm above the gavin. The tip of the enteric tube pro jects over the left upper quadrant. There is a left upper extremity PICC line with tip in the upper right atrium. There is prominence of the interstitial markings with small bilateral pleural effusions. No focal airspace opacification or pneumothorax is seen. The cardiomediastinal silhouette is within normal limits for size. The osseous structures are unremarkable. IMPRESSION: 1. Findings suggestive of interstitial edema with small bilateral pleural effusions. Findings are i mproved when compared to the prior examination. 2. Tubes and lines, as described above. RPTAT: HH .Shilpa Song MD, MD Date Time Electronically viewed and signed by .Shilpa Song MD, on 08/25/2016 08:14 .G/
[2016-08-25] MEDS ORDERED: POTASSIUM CHLORIDE 250 ML IVPB ONE (09:00)
[2016-08-25] MEDS: [UNRECOGNIZED DRUG - REMARK] XX SCH ×2 (09:00→16:42)
--- NOTE | 2016-08-25 09:33 | CONS ---
Date/Time of Note Date/Time of Note DATE: 08/25/16 TIME: 09:29 Assessment/Plan Assessment/Plan Additional Assessment/Plan Ventilator settings; AC of 24, tidal volume 600, PEEP of 5, 30% FiO2. Chest x-ray was reviewed from today which is essentially clear. Assessment recommendations; 1. Patient admitted for perforated peptic ulcer status post nephrectomy. 2. Polysubstance abuse. 3. Chronic renal failure. Stop sedation. The patient is off sedative effect he will be evaluated for weaning from ventilator. Patient was briefly tried on CPAP mode at bedside and currently has good parameters. I did have a detailed discussion with the patient's father at bedside and answered all his questions. Consultation Date/Type/Reason Admit Date/Time Aug 19, 2016 at 18:21 Initial Consult Date 08/21/16 Type of Consultation: Pulmonary/critical care 24 HR Interval Summary Free Text/Dictation Patient condition remains critical but stable. Patient has been off sedation for more than 24 hours now and is now completely awake and alert. Has remained hemodynamically stable. General exam; young male, orally intubated, awake. Currently in no distress. Exam/Review of Systems Vital Signs Vitals Vital Signs Date Time Temp Pulse Resp B/P Pulse Ox O2 Delivery O2 Flow Rate FiO2 08/25/16 09:00 76 24 108/71 98 Mechanical Ventilator 08/25/16 05:25 30 08/25/16 04:00 98.2 Intake and Output 08/24/16 08/24/16 08/25/16 15:00 23:00 07:00 Intake Total 650.0 ml 1150 ml 350 ml Output Total 620 ml 2850 ml 840 ml Balance 30.0 ml -1700 ml -490 ml Exam HEENT exam is; supple neck, no JVD. No lymphadenopathy. Midline trachea. No thyromegaly. Orally intubated. No neck masses. Chest examination of Billy clear to alteration bilaterally. S1-S2 audible, no murmurs. Regular rhythm. Abdomen examination; soft, no organomegaly. Bowel sounds audible. KARISSA drain in place. Midline nephrotomy scar is present. Extremity exam is; no peripheral edema. Pulses 1+ bilaterally. LITHOSTRIPPER examination a micro patient is awake and follows simple commands and moves all 4 extremities. Results Result Diagram: 08/25/16 0400 08/25/16 0400 Results 24 hrs Laboratory Tests Test 08/25/16 04:00 Anion Gap 14 Basophils # 0.0 Basophils % 0.2 Blood Urea Nitrogen 50 #H Calcium Level 7.3 L Carbon Dioxide Level 27 Chloride Level 104 Creatinine 2.53 #H Eosinophils # 0.3 Eosinophils % 2.9 Glucose Level 85 Hematocrit 26.1 L Hemoglobin 8.8 L Lymphocytes # 1.8 Lymphocytes % 15.4 Magnesium Level 2.2 Mean Corpuscular Hemoglobin 30.1 Mean Corpuscular Hemoglobin Concent 33.7 Mean Corpuscular Volume 89.4 Mean Platelet Volume 9.9 Monocytes # 1.0 H Monocytes % 8.6 Neutrophils # 8.1 H Neutrophils % 70.0 Nucleated Red Blood Cells # 0.0 Nucleated Red Blood Cells % 0.0 Phosphorus Level 3.2 Platelet Count 185 Potassium Level 3.2 L Red Blood Count 2.92 L Red Cell Distribution Width 15.2 H Sodium Level 142 White Blood Count 11.6 H Medications Medications Current Medications Morphine Sulfate (morphine) 2 mg Q4H PRN IV SEVERE PAIN LEVEL 7-10 Last administered on 08/24/16 21:42; Admin Dose 2 MG; Start 08/19/16 at 19:30 Acetaminophen/ Hydrocodone Bitart ([place] (7.5-325)) 1 tab Q6H PRN PO PAIN Last administered on 08/20/16 09:34; Admin Dose 1 TAB; Start 08/19/16 at 21:30 IV Flush (NS 10 ml) 10 ml PRN PRN IV IV PROTOCOL; Start 08/20/16 at 19:30 Oxycodone/ Acetaminophen (Percocet (5/ 325)) 1 tab Q4H PRN PO MILD PAIN (1-3); Start 08/20/16 at 21:30 Oxycodone/ Acetaminophen (Percocet (5/ 325)) 2 tab Q4H PRN PO MODERATE PAIN (4- 6); Start 08/20/16 at 21:30 Morphine Sulfate (morphine) 2 mg ONCE PRN IV SEVERE PAIN LEVEL 7-10; Start 08/20 at 21:30 Ondansetron HCl (Zofran Inj) 4 mg Q6H PRN IV NAUSEA; Start 08/20/16 at 21:30 Pantoprazole 40 mg 40 mg BID@,18 IV Last administered on 08/25/16 06:36; Admin Dose 40 MG; Start 08/21/16 at 06:00 Fentanyl 100 ml @ 2.5 mls/hr TITRATE IV Last administered on 08/23/16 06:24; Admin Dose 5 MLS/HR; Start 08/20/16 at 22:00 Midazolam HCl 50 ml @ 1 mls/hr TITRATE IV Last administered on 08/22/16 01:42 ; Admin Dose 7 MLS/HR; Start 08/20/16 at 22:00 Metronidazole 100 ml @ 100 mls/hr Q8 IVPB Last administered on 08/25/16 06:36 ; Admin Dose 100 MLS/HR; Start 08/21/16 at 06:00 Norepinephrine/ Dextrose (Levophed/D5W) 500 ml @ 1.87 mls/hr TITRATE IV Last administered on 08/21/16 14:31; Admin Dose 28.12 MLS/HR; Start 08/21/16 at 07: 00 Acetaminophen 650 mg 650 mg Q6H PRN [place] FEVER Last administered on 08/23/16 19: 22; Admin Dose 650 MG; Start 08/21/16 at 11:30 Cefazolin Sodium 50 ml @ 100 mls/hr Q24H IVPB Last administered on 08/24/16 21:31; Admin Dose 100 MLS/HR; Start 08/22/16 at 21:00 Dextrose/Sodium Chloride 1,000 ml @ 50 mls/hr Q20H IV Last administered on 04:38; Admin Dose 50 MLS/HR; Start 08/24/16 at 08:00 Total Parenteral Nutrition 1,000 ml @ 50 mls/hr Q20H IV ; Start 08/24/16 at 10: 00; Status UNV Potassium Chloride 30 meq/ Dextrose 1,015 ml @ 50 mls/hr [id number] IV ; Start at 09:00 Potassium Chloride (KCl 40 MEQ/250 ML NS) 250 ml @ 62.5 mls/hr ONCE ONCE IVPB ; Start 08/25/16 at 09:00; Stop 08/25/16 at 12:59 Miscellaneous Information (*Order Clarification Bulletin) MEDICATION REQUIRES CLARIFICATI... Q8H XX ; Start 08/25/16 at 08:30 RAFAL SIMS Aug 25, 2016 09:33
--- NOTE | 2016-08-25 09:33 | PN ---
DATE: 08/25/2016 SUBJECTIVE: The patient is critically ill, but stable. Remains on ventilator support. The patient had hemodialysis yesterday with 1 liter removed, tolerated well. The patient's urinary output has significantly increased, approximately 50-60 mL an hour. No other acute events noted. The patient is beginning to respond to some commands. OBJECTIVE: VITAL SIGNS: Blood pressure is 103/68, respirations 24, pulse 74, temperature 98.2. HEENT: Head is normocephalic. NECK: Supple. HEART: Regular rate. LUNGS: Diminished breath sounds at base. ABDOMEN: Soft, nontender to palpation. No rebound or guarding. EXTREMITIES: Negative for clubbing, cyanosis. Positive edema. DERMATOLOGIC: No rashes. MUSCULOSKELETAL: No joint effusions. NEUROLOGIC: No change in exam. MEDICATIONS: The patient's medications have been reviewed. LABORATORY DATA: Shows sodium 142, potassium 3.2, BUN 50, creatinine 2.53. White count 11.6, hemog lobin 8.8, hematocrit 26.1, platelet count is 185. ASSESSMENT AND PLAN: 1. Nonoliguric acute kidney injury with previous baseline creatinine of 0.9 mg/dL: Etiology of acu te kidney injury is secondary to acute tubular necrosis due to nephrotoxic exposure and shock. The patient was initiated on hemodialysis and had a session of dialysis yesterday. Patient is clinicall y improving as urinary output is increasing. At this point, will hold hemodialysis. Will monitor r enal function. 2. Hypokalemia: We will replete with potassium chloride 30 mEq IV x1. Will also place potassium in patient's maintenance fluids. 3. Mineral bone disorder: Continue to monitor calcium, phosphorus levels. No need for phosphate b inders. 4. Anemia: Continue to monitor hemoglobin and hematocrit levels. 5. Perforated gastric ulcer status-post repair. Patient clinically stable. Continue to monitor. 6. Sepsis: Status post shock. The patient is currently off pressor support. Continue current ant ibiotic regimen. 7. Volume overload: Patient is clinically improving. Will continue to monitor, minimize IV fluids . Will give intermittent diuretic therapy as needed. 8. Ventilator dependent respiratory failure: Vent settings have been reviewed. ABG has been revie wed. Continue to monitor. 9. Acute encephalopathy: Etiology is toxic metabolic. Continue to observe. 10. Recent history of polysubstance abuse. Please note I spent over 40 minutes of critical care time with this patient. Dictated By: SILVIA HERNANDEZ/TOMMY Conf#: [id number] DID#: [id number]
--- NOTE | 2016-08-25 10:12 | PN ---
Date/Time of Note Date/Time of Note DATE: 08/25/16 TIME: 10:07 Assessment/Plan VTE Prophylaxis VTE Prophylaxis Intervention: SCD's Lines/Catheters IV Catheter Type (from Nrs): rita Urinary Cath still in place: Yes Reason Cath still needed: other (indicate) Assessment/Plan Chief Complaint/Hosp Course Chief Complaint/Hosp Course 1. Abdominal pain secondary to perforated gastric ulcer status post surgical repair Continue vent support, continue ICU monitoring 2. Acute kidney injury Continue dialysis per nephrology, improving 3. Smoking history Advise smoking cessation 4. Substance abuse Toxicology is positive for amphetamines 5. SIRS reactive secondary to #1 Continue Zosyn as well as Flagyl and Ancef 6. Resp Failure cont vent support, wean off as able, Pulm on the case 7. Hypokalemia, repleted We will continue monitor patient closely for recommendation management treatment as clinical course Prognosis guarded Continue TPN Problems: Subjective 24 Hr Interval Summary Free Text/Dictation Patient is more awake and alert Following simple commands Intubated although not sedated Minimally agitated secondary to intubation Exam/Review of Systems Vital Signs Vitals Vital Signs Date Time Temp Pulse Resp B/P Pulse Ox O2 Delivery O2 Flow Rate FiO2 08/25/16 09:45 114 26 96 30 08/25/16 09:00 108/71 Mechanical Ventilator 08/25/16 04:00 98.2 Intake and Output 08/24/16 08/24/16 08/25/16 15:00 23:00 07:00 Intake Total 650.0 ml 1150 ml 350 ml Output Total 620 ml 2850 ml 840 ml Balance 30.0 ml -1700 ml -490 ml Exam General: The patient is not in acute distress. Minimally agitated, intubated HEENT: Atraumatic, normocephalic. The pupils are equal and round . Neck: Supple Chest: Normal expansion of the thorax during inspiration Lungs: Clear to auscultation bilaterally Heart: Normal S1-S2, Regular rhythm and rate. Abdomen: Soft , nontender, nondistended , bowel sounds are present. Surgical site is dry and clean Extremities: Normal to inspection, no edema no cyanosis Neurologic: ,The patient is awake, and easily arousable Results Result Diagram: 08/25/16 0400 08/25/16 0400 Results 24 hrs Laboratory Tests Test 08/25/16 04:00 Anion Gap 14 Basophils # 0.0 Basophils % 0.2 Blood Urea Nitrogen 50 #H Calcium Level 7.3 L Carbon Dioxide Level 27 Chloride Level 104 Creatinine 2.53 #H Eosinophils # 0.3 Eosinophils % 2.9 Glucose Level 85 Hematocrit 26.1 L Hemoglobin 8.8 L Lymphocytes # 1.8 Lymphocytes % 15.4 Magnesium Level 2.2 Mean Corpuscular Hemoglobin 30.1 Mean Corpuscular Hemoglobin Concent 33.7 Mean Corpuscular Volume 89.4 Mean Platelet Volume 9.9 Monocytes # 1.0 H Monocytes % 8.6 Neutrophils # 8.1 H Neutrophils % 70.0 Nucleated Red Blood Cells # 0.0 Nucleated Red Blood Cells % 0.0 Phosphorus Level 3.2 Platelet Count 185 Potassium Level 3.2 L Red Blood Count 2.92 L Red Cell Distribution Width 15.2 H Sodium Level 142 White Blood Count 11.6 H Medications Medications Current Medications Morphine Sulfate (morphine) 2 mg Q4H PRN IV SEVERE PAIN LEVEL 7-10 Last administered on 08/24/16 21:42; Admin Dose 2 MG; Start 08/19/16 at 19:30 Acetaminophen/ Hydrocodone Bitart ([place] (7.5-325)) 1 tab Q6H PRN PO PAIN Last administered on 08/20/16 09:34; Admin Dose 1 TAB; Start 08/19/16 at 21:30 IV Flush (NS 10 ml) 10 ml PRN PRN IV IV PROTOCOL; Start 08/20/16 at 19:30 Oxycodone/ Acetaminophen (Percocet (5/ 325)) 1 tab Q4H PRN PO MILD PAIN (1-3); Start 08/20/16 at 21:30 Oxycodone/ Acetaminophen (Percocet (5/ 325)) 2 tab Q4H PRN PO MODERATE PAIN (4- 6); Start 08/20/16 at 21:30 Morphine Sulfate (morphine) 2 mg ONCE PRN IV SEVERE PAIN LEVEL 7-10; Start 08/20 at 21:30 Ondansetron HCl (Zofran Inj) 4 mg Q6H PRN IV NAUSEA; Start 08/20/16 at 21:30 Pantoprazole 40 mg 40 mg BID@06,18 IV Last administered on 08/25/16 06:36; Admin Dose 40 MG; Start 08/21/16 at 06:00 Fentanyl 100 ml @ 2.5 mls/hr TITRATE IV Last administered on 08/23/16 06:24; Admin Dose 5 MLS/HR; Start 08/20/16 at 22:00 Midazolam HCl 50 ml @ 1 mls/hr TITRATE IV Last administered on 08/22/16 01:42 ; Admin Dose 7 MLS/HR; Start 08/20/16 at 22:00 Metronidazole 100 ml @ 100 mls/hr Q8 IVPB Last administered on 08/25/16 06:36 ; Admin Dose 100 MLS/HR; Start 08/21/16 at 06:00 Norepinephrine/ Dextrose (Levophed/D5W) 500 ml @ 1.87 mls/hr TITRATE IV Last administered on 08/21/16 14:31; Admin Dose 28.12 MLS/HR; Start 08/21/16 at 07: 00 Acetaminophen 650 mg 650 mg Q6H PRN [place] FEVER Last administered on 08/23/16 19: 22; Admin Dose 650 MG; Start 08/21/16 at 11:30 Cefazolin Sodium 50 ml @ 100 mls/hr Q24H IVPB Last administered on 08/24/16 21:31; Admin Dose 100 MLS/HR; Start 08/22/16 at 21:00 Dextrose/Sodium Chloride 1,000 ml @ 50 mls/hr Q20H IV Last administered on 04:38; Admin Dose 50 MLS/HR; Start 08/24/16 at 08:00 Total Parenteral Nutrition 1,000 ml @ 50 mls/hr Q20H IV ; Start 08/24/16 at 10: 00; Status UNV Potassium Chloride 30 meq/ Dextrose 1,015 ml @ 50 mls/hr [id number] IV ; Start at 09:00 Potassium Chloride (KCl 40 MEQ/250 ML NS) 250 ml @ 62.5 mls/hr ONCE ONCE IVPB ; Start 08/25/16 at 09:00; Stop 08/25/16 at 12:59 Miscellaneous Information (*Order Clarification Bulletin) MEDICATION REQUIRES CLARIFICATI... Q8H XX ; Start 08/25/16 at 08:30 NAREN BURDEN MD Aug 25, 2016 10:12
[2016-08-25] MEDS: POTASSIUM CHLORIDE 30 MEQ in DEXTROSE 5% 1,000 ML IV SCH (10:15)
[2016-08-25] MEDS ORDERED: ACETAMINOPHEN 1000MG/100ML IV 100 ML IVPB PRN (10:30)
--- NOTE | 2016-08-25 11:01 | CONS ---
DATE OF ADMISSION: 08/19/2016 DATE OF CONSULTATION: 08/25/2016 TYPE OF CONSULTATION: Pain management and substance abuse HISTORY OF PRESENT ILLNESS: Reviewing patient's medical records, he was admitted to [facility] on 08/20/2016, where he presented at that time with abdominal discomfort. He had a th orough workup in the emergency room. He has a past medical history of substance abuse. His urine s creen tested positive for methamphetamine, nothing else. During this hospitalization, he was contin uing to complain of abdominal discomfort, seen by Dr. Byron Webb on 08/20/2016 also and was diagn osed with a perforated duodenal ulcer. Postop recovery has been complicated. The patient is still intubated at this time, this is 5 days post-surgery, although he is actively being weaned at this ti in. MEDICATIONS: Please refer to reconciliation sheets. ALLERGIES: NO KNOWN DRUG ALLERGIES. MAJOR MEDICAL PROBLEMS IN THE PAST: Unknown. The patient is intubated and cannot give me history. Incomplete database. SOCIAL HISTORY: Unknown. FAMILY HISTORY: Unknown. REVIEW OF SYSTEMS: Cannot be obtained. PHYSICAL EXAMINATION: GENERAL: Shows a well-nourished, well-developed male who is agitated right now trying to pull on hi s restraints and biting the ET tube. VITAL SIGNS: Blood pressure 108/71, pulse is 114, respirations 26, temperature 98.2 degrees. HEENT: He is normocephalic and atraumatic. Anicteric, acyanotic. CHEST: Shows bilateral clear breath sounds throughout both lung garcia. He has no rales, rhonchi, wheezing, or rubs. COR: S1, S2, without S3, S4, murmur, gallop, rub. Normal rate, normal rhythm. ABDOMEN: Grossly benign. Active bowel sounds throughout all 4 quadrants. NEUROLOGIC: He follows all simple commands without difficulty, but he is lethargic. He moves all e xtremities purposefully. There are no abnormalities of his cranial nerves. LABORATORY TESTS: White blood cell count of 11.6, hemoglobin 8.8, hematocrit 26.1, platelet count o f 185,000. Chemistries: Serum sodium 142, potassium 3.2, chloride 104, bicarbonate 27, BUN 50, cre atinine 2.53, blood sugar of 85. ASSESSMENT AND PLAN: This is a 36-year-old gentleman admitted to [facility] with a perforated duodenal ulcer. He is vent-dependent at this time, but is being actively tapered off t he ventilator, hopefully to be extubated. He is still lethargic on examination. He is receiving so me opioids and sedatives. I will discontinue all of those. He also has developed unfortunately end -stage renal disease on hemodialysis at this time, and his renal function is improving and is being seen by Dr. Benito Ruiz. I will discontinue opioids at this time, sedatives including midazolam, j ust switch him to Tylenol at this time and I will follow his renal function. If his creatinine and BUN begin to rise once again, I will discontinue the Tylenol p.r.n. and just follow his renal functi on. However, will do so off opioids additionally and off sedation. I had a conversation with the patient's father at the bedside who states to me he was unaware of the fact that his son was using methamphetamine, but he did tell me that his daughter was aware that he was using, and had a conversation with Mr. Goldman when he was first admitted. He did not test pos itive for any other substances when first arrived. The father says his son smokes but does not drin k, so we do not know whether or not this a first time effect or whether or not this gentleman has be en using for a prolonged period of time. In either event, he should have cleared the amphetamines f rom his system by this time, but there is a possibility that he used an excessive amount, he still m ay have some clearance problems, especially since he has developed renal failure and required dialys is while he is here. There is a fairly significant probability that he will require some type of se dation off of the vent in the event that he continues to become restless and agitated as he appears at this time. I have explained this to patient's father at the bedside. We will continue to have c onversations with both the patient when he is extubated and with family and before he is discharged, we will recommend some kind of outpatient substance abuse program. Dictated By: MIRIAN GLOVER MD, LP/TOMMY Conf#: [id number] DID#: [id number]
[2016-08-25 12:04] LABS: AADO2 Arterial 59.4 mmHg (7.0-24.0); Allen Test ACCEPTAB; Arterial Base Excess 1.6 mmol/L (-3.0-3); Arterial COHb 0.3 % (0.0-3.0); Arterial Fraction of Oxyhgb 96.7 % (93.0-99.0); Arterial HCO3 24.9 mmol/L (22.0-26.0); Arterial MetHb 0.5 % (0.0-1.5); Arterial Total Hemglobin 11.2 g/dl (12.0-18.0); Blood Gas PS 10; MODE VENT - CPAP
--- NOTE | 2016-08-25 12:31 | PN ---
DATE: 08/25/2016 Postoperative day #5. The patient has been afebrile for the last 24 hours. Although sedated, he a ppears comfortable. ABDOMEN: Remains benign, KARISSA drainage is serous. LABORATORY DATA: White blood cell count has come down to 11,600. BUN is improved at 50, creatinine is improved at 2.53. IMPRESSION: Gradual improvement. PLAN: Continue aggressive medical management. Dictated By: TIFFANI ALCANTAR/TOMMY Conf#: [id number] DID#: [id number]
[2016-08-25] MEDS ORDERED: LORAZEPAM 2 MG INJ IV PRN (13:00)
[2016-08-25] MEDS ORDERED: morphine 2 MG INJ IV PRN (13:00)
[2016-08-25] MEDS: TPN 1,000 ML IV SCH (15:07)
[2016-08-25] MEDS: CEFAZOLIN 1 GM/50 ML (PMX) 50 ML IVPB SCH (22:30)
[2016-08-25] MEDS: morphine 2 MG INJ IV PRN (22:33)
[2016-08-26] VITALS (22 sets, daily range): BP systolic 96–127; BP diastolic 61–96; PULSE 82–106; RESP 19–32
[2016-08-26] MEDS: [UNRECOGNIZED DRUG - REMARK] XX SCH ×2 (00:47→08:56)
[2016-08-26] MEDS: morphine 2 MG INJ IV PRN ×2 (03:41→11:19)
[2016-08-26 04:38] LABS: ADD SCAN DIFF NO
[2016-08-26 04:52] LABS: BASOPHILS % 0.2 % (0.0-2.0); EOSINOPHILS # 0.5 10^3/ul (0.0-0.5); HEMATOCRIT 30.6 % (42.0-52.0); HEMOGLOBIN 9.8 g/dl (14.0-18.0); LYMPHOCYTES # 1.6 10^3/ul (0.8-2.9); LYMPHOCYTES % 10.5 % (15.0-51.0); MEAN CORPUSCULAR HEMOGLOBIN 29.5 pg (29.0-33.0); MEAN CORPUSCULAR VOLUME 92.2 fl (82.0-101.0); MEAN PLATELET VOLUME 9.5 fl (7.4-10.4); MONOCYTE # 1.3 10^3/ul (0.3-0.9); MONOCYTES % 8.3 % (0.0-11.0); NEUTROPHIL # 11.6 10^3/ul (1.6-7.5); NEUTROPHILS % 75.8 % (39.0-77.0); PLATELET COUNT 241 10^3/UL (140-415); RED BLOOD COUNT 3.32 10^6/ul (4.70-6.10); RED CELL DISTRIBUTION WIDTH 14.6 % (11.5-14.5); WHITE BLOOD COUNT 15.2 10^3/ul (4.8-10.8)
[2016-08-26 04:58] LABS: POTASSIUM 3.9 mmol/L (3.5-5.1)
[2016-08-26 05:00] LABS: CREATININE 1.61 mg/dl (0.61-1.24)
[2016-08-26 05:01] LABS: PHOSPHORUS 4.1 mg/dl (2.5-4.9)
[2016-08-26 05:02] LABS: CALCIUM 7.6 mg/dl (8.4-10.2)
[2016-08-26] MEDS: metroNIDAZOLE 500 MG/NS (PMX) 100 ML IVPB SCH (06:06)
[2016-08-26] MEDS: PANTOPRAZOLE 40 MG INJ IV SCH ×2 (06:06→18:56)
--- NOTE | 2016-08-26 08:44 | PN ---
DATE: 08/26/2016 SUBJECTIVE: The patient was extubated yesterday without complications. The patient is currently al ert and oriented. The patient has had excellent urinary output, over 3 L. No other events noted. OBJECTIVE: VITAL SIGNS: Blood pressure is 110/80, respirations 20, pulse 89, temperature 98.2. I'S AND O'S: The patient had 1.5 liters in, 3.2 liters out. HEENT: Head is normocephalic. NECK: Supple. HEART: Regular rate. LUNGS: Show diminished breath sounds at the base. ABDOMEN: Soft, mild tenderness to palpation noted. Dressings clean, dry, and intact. DERMATOLOGIC: No rashes. MUSCULOSKELETAL: No joint effusions. NEUROLOGIC: No focal deficits. EXTREMITIES: Negative for clubbing, cyanosis, or edema. LABORATORY DATA: Shows sodium 143, potassium 3.9, BUN 42, creatinine 1.61. White count 15.2, hemog lobin 9.8, hematocrit 30.6, platelet count is 241. ASSESSMENT AND PLAN: 1. Nonoliguric acute kidney injury with a baseline creatinine of 0.9 mg/dL. Etiology of acute kidn ey injury is secondary to acute tubular necrosis due to nephrotoxic exposure in shock. The patient was status post hemodialysis. The patient is currently in recovery/diuretic phase of acute tubular necrosis. Renal function is improving. The patient has excellent urinary output. Plan at this poi nt would be to discontinue his Devan catheter. We will monitor renal function and electrolytes cl osely. Otherwise, continue supportive care, renally dose all meds. 2. Hyperkalemia, improved. Continue to monitor closely in diuretic phase of acute tubular necrosis . 3. Mineral bone disorder. Continue to monitor calcium status phosphorus levels. 4. Anemia. Continue to monitor hemoglobin and hematocrit levels. 5. Perforated gastric ulcer status post repair. The patient is clinically stable. Continue to mon itor. 6. Sepsis, status post shock. The patient is currently off pressors, completing antibiotic course. 7. Volume overload. The patient clinically improving. Will give intermittent diuretics as needed. 8. Respiratory failure, status post extubation. The patient is currently stable on nasal cannula. Continue current treatment plan. Follow up with pulmonary. 9. Acute encephalopathy. Etiology is toxic metabolic. The patient's mental status has improved. Continue to monitor. 10. Recent history of polysubstance abuse. 11. Nutrition. The patient is on TPN. Will continue. Dictated By: SILVIA HERNANDEZ/TOMMY Conf#: [id number] DID#: [id number]
[2016-08-26] MEDS: POTASSIUM CHLORIDE 30 MEQ in DEXTROSE 5% 1,000 ML IV SCH (09:00)
--- NOTE | 2016-08-26 10:00 | CONS ---
Date/Time of Note Date/Time of Note DATE: 08/26/16 TIME: 09:57 Assessment/Plan Assessment/Plan Additional Assessment/Plan Assessment recommendations; 1. Patient admitted for perforated peptic ulcer status post laparotomy. 2. Status post acute renal injury. With normalization of renal function. Next 3. History of drug abuse. Continue current treatment. Patient can be transferred to the medical floor. A trial of oral feeding is recommended. With tapering off of TPN. Consultation Date/Type/Reason Admit Date/Time Aug 19, 2016 at 18:21 Initial Consult Date 08/21/16 Type of Consultation: Pulmonary/critical care 24 HR Interval Summary Free Text/Dictation Patient condition is stable. Was successfully extubated yesterday afternoon. Remains awake alert. Has remained hemodynamically stable. General exam; young male, currently in no distress. Awake and alert. Denies any shortness of breath, chest pain, abdominal pain, nausea vomiting. He wants to eat. Exam/Review of Systems Vital Signs Vitals Vital Signs Date Time Temp Pulse Resp B/P Pulse Ox O2 Delivery O2 Flow Rate FiO2 08/26/16 08:22 Nasal Cannula 3.0 08/26/16 08:00 87 24 111/80 97 08/26/16 04:00 98.2 08/25/16 12:58 30 Intake and Output 08/25/16 08/25/16 08/26/16 15:00 23:00 07:00 Intake Total 460 ml 451 ml 700 ml Output Total 1340 ml 1290 ml 685 ml Balance -880 ml -839 ml 15 ml Exam HEENT exam is; supple neck, no JVD. No lymphadenopathy. Midline trachea. No thyromegaly. No neck masses. Patient has fair dentition. Chest examination; clear to auscultation bilaterally. S1-S2 audible, no murmurs. Regular rhythm. Abdomen examination; soft, no tenderness. Midline incision with chance applied. There is a KARISSA drain in the right lower quadrant. Bowel sounds audible. Extremity exam is; no peripheral edema. Pulses 1+ bilaterally. STAFF HOME THERAPY RN examination; no focal deficit. Results Result Diagram: 08/26/16 0400 08/26/16 0400 Results 24 hrs Laboratory Tests Test 08/25/16 11:40 08/26/16 04:00 Blood Gas Specimen Source Blood arterial Arterial Blood Date Drawn 08/25/2016 11:40:25 AM Arterial Blood pH (Temp corrected) 7.473 H Arterial Blood pCO2 (Temp correct) 34.8 L Arterial Blood pO2 (Temp corrected) 113.6 H Arterial Blood HCO3 24.9 Arterial Blood Base Excess 1.6 Arterial Blood Oxygen Saturation 97.5 Marcus Test ACCEPTAB Arterial Blood Gas Puncture Site Right Radial Arterial Blood Carboxyhemoglobin 0.3 Arterial Blood Methemoglobin 0.5 Blood Gas A-a O2 Differential 59.4 H Oxyhemoglobin Percent 96.7 Total Hemoglobin 11.2 L Blood Gas Temperature 37.0 Blood Gas Actual Respiration Rate 21 Blood Gas Modality VENT - CPAP FiO2 30.0 Blood Gas Low PEEP Setting 5.0 Blood Gas Pressure Support 10 Blood Gas Notified Whom JLD Blood Gas Notified Time 08/25/2016 12:04:35 PM White Blood Count 15.2 #H Red Blood Count 3.32 L Hemoglobin 9.8 L Hematocrit 30.6 L Mean Corpuscular Volume 92.2 Mean Corpuscular Hemoglobin 29.5 Mean Corpuscular Hemoglobin Concent 32.0 Red Cell Distribution Width 14.6 H Platelet Count 241 # Mean Platelet Volume 9.5 Neutrophils % 75.8 Lymphocytes % 10.5 L Monocytes % 8.3 Eosinophils % 3.0 Basophils % 0.2 Nucleated Red Blood Cells % 0.0 Neutrophils # 11.6 H Lymphocytes # 1.6 Monocytes # 1.3 H Eosinophils # 0.5 Basophils # 0.0 Nucleated Red Blood Cells # 0.0 Sodium Level 143 Potassium Level 3.9 Chloride Level 107 Carbon Dioxide Level 29 Anion Gap 11 Blood Urea Nitrogen 42 H Creatinine 1.61 H Glucose Level 104 Calcium Level 7.6 L Phosphorus Level 4.1 Magnesium Level 2.0 Medications Medications Current Medications IV Flush (NS 10 ml) 10 ml PRN PRN IV IV PROTOCOL; Start 08/20/16 at 19:30 Ondansetron HCl (Zofran Inj) 4 mg Q6H PRN IV NAUSEA; Start 08/20/16 at 21:30 Pantoprazole 40 mg 40 mg BID@06,18 IV Last administered on 08/26/16 06:06; Admin Dose 40 MG; Start 08/21/16 at 06:00 Metronidazole 100 ml @ 100 mls/hr Q8 IVPB Last administered on 08/26/16 06:06 ; Admin Dose 100 MLS/HR; Start 08/21/16 at 06:00 Norepinephrine 16 mg/Dextrose 500 ml @ 1.87 mls/hr TITRATE IV Last administered on 08/21/16 14:31; Admin Dose 28.12 MLS/HR; Start 08/21/16 at 07: 00 Cefazolin Sodium 50 ml @ 100 mls/hr Q24H IVPB Last administered on 08/25/16 22:30; Admin Dose 100 MLS/HR; Start 08/22/16 at 21:00 Potassium Chloride/Dextrose (KCl/D5W) 1,015 ml @ 10 mls/hr Q24H IV Last administered on 08/25/16 10:15; Admin Dose 50 MLS/HR; Start 08/25/16 at 09:00 Miscellaneous Information MEDICATION REQUIRES CLARIFICATI... Q8H XX Last administered on 08/26/16 08:56; Admin Dose 1 EA; Start 08/25/16 at 08:30 Acetaminophen (Ofirmev 1000mg/ 100ml Iv) 100 ml @ 400 mls/hr Q6H PRN IVPB PAIN LEVEL 1-3; Start 08/25/16 at 10:30 Lorazepam (Ativan) 0.5 mg Q8H PRN IV AGITATION/ANXIETY; Start 08/25/16 at 13:00 Morphine Sulfate (morphine) 1 mg Q3H PRN IV PAIN LEVEL 4-7; Start 08/25/16 at 13:00 Morphine Sulfate 2 mg 2 mg Q3H PRN IV PAIN LEVEL 7-10 Last administered on 08/26 03:41; Admin Dose 2 MG; Start 08/25/16 at 13:00 Total Parenteral Nutrition (Tpn) 1,000 ml @ 40 mls/hr Q24H IV Last administered on 08/25/16 15:07; Admin Dose 40 MLS/HR; Start 08/25/16 at 15:00 RAFAL SIMS Aug 26, 2016 10:00
--- NOTE | 2016-08-26 10:17 | PN ---
Date/Time of Note Date/Time of Note DATE: 08/26/16 TIME: 10:14 Assessment/Plan VTE Prophylaxis VTE Prophylaxis Intervention: SCD's Lines/Catheters IV Catheter Type (from Nrs): rita Urinary Cath still in place: Yes Reason Cath still needed: other (indicate) Assessment/Plan Chief Complaint/Hosp Course Chief Complaint/Hosp Course 1. Abdominal pain secondary to perforated gastric ulcer status post surgical repair Continue postsurgical care, diet as per surgery 2. Acute kidney injury Continue dialysis per nephrology, improving 3. Smoking history Advise smoking cessation 4. Substance abuse Toxicology is positive for amphetamines 5. SIRS reactive secondary to #1 Continue Zosyn as well as Flagyl and Ancef 6. Resp Failure Extubated on 08/25/2016, continue breathing treatment Pulm on the case 7. Hypokalemia, repleted We will continue monitor patient closely for recommendation management treatment as clinical course Prognosis guarded Continue TPN Problems: Subjective 24 Hr Interval Summary Free Text/Dictation Extubated on Tolerating TPN Awake alert able to follow commands Exam/Review of Systems Vital Signs Vitals Vital Signs Date Time Temp Pulse Resp B/P Pulse Ox O2 Delivery O2 Flow Rate FiO2 08/26/16 08:22 Nasal Cannula 3.0 08/26/16 08:00 87 24 111/80 97 08/26/16 04:00 98.2 08/25/16 12:58 30 Intake and Output 08/25/16 08/25/16 08/26/16 15:00 23:00 07:00 Intake Total 460 ml 451 ml 700 ml Output Total 1340 ml 1290 ml 685 ml Balance -880 ml -839 ml 15 ml Exam General: The patient is well-developed, Not in acute distress. NG tube in place HEENT: Atraumatic, normocephalic. The pupils are equal and round . Neck: Supple Chest: Normal expansion of the thorax during inspiration Lungs: Clear to auscultation bilaterally Heart: Normal S1-S2, Regular rhythm and rate. Abdomen: Soft , nontender, nondistended , bowel sounds are present. Surgical site is dry and clean, KARISSA tube in place Extremities: Normal to inspection, no edema no cyanosis Neurologic: Normal mental status,The patient is awake, alert and oriented . Results Result Diagram: 08/26/160 08/26/16 0400 Results 24 hrs Laboratory Tests Test 08/25/16 11:40 08/26/16 04:00 Blood Gas Specimen Source Blood arterial Arterial Blood Date Drawn 08/25/2016 11:40:25 AM Arterial Blood pH (Temp corrected) 7.473 H Arterial Blood pCO2 (Temp correct) 34.8 L Arterial Blood pO2 (Temp corrected) 113.6 H Arterial Blood HCO3 24.9 Arterial Blood Base Excess 1.6 Arterial Blood Oxygen Saturation 97.5 Marcus Test ACCEPTAB Arterial Blood Gas Puncture Site Right Radial Arterial Blood Carboxyhemoglobin 0.3 Arterial Blood Methemoglobin 0.5 Blood Gas A-a O2 Differential 59.4 H Oxyhemoglobin Percent 96.7 Total Hemoglobin 11.2 L Blood Gas Temperature 37.0 Blood Gas Actual Respiration Rate 21 Blood Gas Modality VENT - CPAP FiO2 30.0 Blood Gas Low PEEP Setting 5.0 Blood Gas Pressure Support 10 Blood Gas Notified Whom JLD Blood Gas Notified Time 08/25/2016 12:04:35 PM White Blood Count 15.2 #H Red Blood Count 3.32 L Hemoglobin 9.8 L Hematocrit 30.6 L Mean Corpuscular Volume 92.2 Mean Corpuscular Hemoglobin 29.5 Mean Corpuscular Hemoglobin Concent 32.0 Red Cell Distribution Width 14.6 H Platelet Count 241 # Mean Platelet Volume 9.5 Neutrophils % 75.8 Lymphocytes % 10.5 L Monocytes % 8.3 Eosinophils % 3.0 Basophils % 0.2 Nucleated Red Blood Cells % 0.0 Neutrophils # 11.6 H Lymphocytes # 1.6 Monocytes # 1.3 H Eosinophils # 0.5 Basophils # 0.0 Nucleated Red Blood Cells # 0.0 Sodium Level 143 Potassium Level 3.9 Chloride Level 107 Carbon Dioxide Level 29 Anion Gap 11 Blood Urea Nitrogen 42 H Creatinine 1.61 H Glucose Level 104 Calcium Level 7.6 L Phosphorus Level 4.1 Magnesium Level 2.0 Medications Medications Current Medications IV Flush (NS 10 ml) 10 ml PRN PRN IV IV PROTOCOL; Start 08/20/16 at 19:30 Ondansetron HCl (Zofran Inj) 4 mg Q6H PRN IV NAUSEA; Start 08/20/16 at 21:30 Pantoprazole 40 mg 40 mg BID@06,18 IV Last administered on 08/26/16t 06:06; Admin Dose 40 MG; Start 08/21/16 at 06:00 Metronidazole 100 ml @ 100 mls/hr Q8 IVPB Last administered on 08/26/16 06:06 ; Admin Dose 100 MLS/HR; Start 08/21/16 at 06:00 Norepinephrine 16 mg/Dextrose 500 ml @ 1.87 mls/hr TITRATE IV Last administered on 08/21/16 14:31; Admin Dose 28.12 MLS/HR; Start 08/21/16 at 07: 00 Potassium Chloride/Dextrose (KCl/D5W) 1,015 ml @ 10 mls/hr Q24H IV Last administered on 08/25/16 10:15; Admin Dose 50 MLS/HR; Start 08/25/16 at 09:00 Miscellaneous Information MEDICATION REQUIRES CLARIFICATI... Q8H XX Last administered on 08/26/16 08:56; Admin Dose 1 EA; Start 08/25/16 at 08:30 Acetaminophen (Ofirmev 1000mg/ 100ml Iv) 100 ml @ 400 mls/hr Q6H PRN IVPB PAIN LEVEL 1-3; Start 08/25/16 at 10:30 Lorazepam (Ativan) 0.5 mg Q8H PRN IV AGITATION/ANXIETY; Start 08/25/16 at 13:00 Morphine Sulfate (morphine) 1 mg Q3H PRN IV PAIN LEVEL 4-7; Start 08/25/16 at 13:00 Morphine Sulfate 2 mg 2 mg Q3H PRN IV PAIN LEVEL 7-10 Last administered on 08/26 03:41; Admin Dose 2 MG; Start 08/25/16 at 13:00 Total Parenteral Nutrition 1,000 ml @ 40 mls/hr Q24H IV Last administered on 15:07; Admin Dose 40 MLS/HR; Start 08/25/16 at 15:00 Piperacillin Sod/ Tazobactam Sod (Zosyn 3.375gm/ 100 ml (Pmx)) 100 ml @ 200 mls /hr Q8 IVPB ; Start 08/26/16 at 14:00; Status NAREN KELLER MD Aug 26, 2016 10:17
[2016-08-26] MEDS: TPN 1,000 ML IV SCH ×2 (14:07→16:14)
[2016-08-26] MEDS: PIPER-TAZO 3.375 GM IV (PMX) 100 ML IVPB SCH ×2 (14:16→22:25)
--- NOTE | 2016-08-26 17:31 | PN ---
DATE: 08/26/2016 SUBJECTIVE: Postoperative day #6. The patient is awake. He is alert and he is extubated. His NG tube is out and he is tolerating clear liquids quite nicely. His abdominal examination remains rafael gn. His KARISSA drainage is serous. LABORATORY DATA: The patient's hematocrit is 30 with a white count of 15,200 without left shift. B UN has come down to 42, creatinine has come down to 1.61. IMPRESSION: Excellent and rapid postoperative progress in these last 2 days. PLAN: The patient is stable for transfer to telemetry. He will need physical therapy and mobilizat ion. Dictated By: TIFFANI ALCANTAR/TOMMY Conf#: [id number] DID#: [id number]
[2016-08-27] VITALS (11 sets, daily range): BP systolic 120–131; BP diastolic 73–78; PULSE 89–98; RESP 16–18
[2016-08-27] MEDS: PIPER-TAZO 3.375 GM IV (PMX) 100 ML IVPB SCH ×3 (05:25→22:08)
[2016-08-27] MEDS: PANTOPRAZOLE 40 MG INJ IV SCH ×2 (05:26→18:21)
[2016-08-27 07:33] LABS: ADD SCAN DIFF NO
[2016-08-27 07:38] LABS: ABNORMAL IP MESSAGE 1; HEMATOCRIT 31.2 % (42.0-52.0); MEAN CORPUSCULAR HEMOGLOBIN 29.8 pg (29.0-33.0); MEAN CORPUSCULAR HGB CONC 32.1 g/dl (32.0-37.0); MEAN CORPUSCULAR VOLUME 92.9 fl (82.0-101.0); MEAN PLATELET VOLUME 9.4 fl (7.4-10.4); PLATELET COUNT 295 10^3/UL (140-415); RED BLOOD COUNT 3.36 10^6/ul (4.70-6.10); RED CELL DISTRIBUTION WIDTH 14.2 % (11.5-14.5); WHITE BLOOD COUNT 21.4 10^3/ul (4.8-10.8)
[2016-08-27 07:51] LABS: POTASSIUM 4.1 mmol/L (3.5-5.1)
[2016-08-27 07:53] LABS: CREATININE 1.16 mg/dl (0.61-1.24)
[2016-08-27 07:54] LABS: PHOSPHORUS 3.1 mg/dl (2.5-4.9)
[2016-08-27 07:55] LABS: CALCIUM 7.5 mg/dl (8.4-10.2); MAGNESIUM 1.5 mg/dl (1.7-2.5)
--- NOTE | 2016-08-27 08:32 | PN ---
DATE: 08/27/2016 SURGERY PROGRESS NOTE Today is postoperative day #7. PHYSICAL EXAMINATION: GENERAL: The patient is awake and alert. ABDOMEN: Benign. PLAN: Initiate physical therapy for ambulation. Advance diet to soft. Dictated By: TIFFANI ALCANTAR/NTS Conf#: [id number] DID#: [id number]
[2016-08-27] MEDS: POTASSIUM CHLORIDE 30 MEQ in DEXTROSE 5% 1,000 ML IV SCH (09:00)
[2016-08-27] MEDS ORDERED: MAGNESIUM SULFATE 2 GM/50 ML 50 ML IVPB ONE (09:30)
[2016-08-27 10:34] LABS: EOSINOPHILS # 0.9 10^3/ul (0.0-0.5); LYMPHOCYTES # 1.7 10^3/ul (0.8-2.9); MONOCYTE # 1.7 10^3/ul (0.3-0.9); MYELOCYTES # 0.2; NEUTROPHIL # 16.3 10^3/ul (1.6-7.5)
--- NOTE | 2016-08-27 10:41 | CONS ---
Date/Time of Note Date/Time of Note DATE: 08/27/16 TIME: 10:31 Assessment/Plan Assessment/Plan Additional Assessment/Plan Assessment recommendations; 1. Patient admitted for perforated peptic ulcer status post laparotomy. 2. Status post respiratory failure. 3. Increasing leukocytosis, etiology is unclear. 4. Status post renal failure. Off hemodialysis now. Continue current supportive care, the patient may need to have a repeat CT abdomen done. Consider adding antifungal coverage. TPN. Continue Zosyn for now. Consultation Date/Type/Reason Admit Date/Time Aug 19, 2016 at 18:21 Initial Consult Date 08/21/16 Type of Consultation: Pulmonary/critical care 24 HR Interval Summary Free Text/Dictation Patient is complaining of some abdominal discomfort, he is trying to pass flatus. Denies any shortness of breath, fever chills. Any nausea vomiting. General exam; young male, currently in no distress. Awake and alert. Exam/Review of Systems Vital Signs Vitals Vital Signs Date Time Temp Pulse Resp B/P Pulse Ox O2 Delivery O2 Flow Rate FiO2 08/27/16 08:00 94 08/27/16 07:59 98.0 18 120/76 98 08/26/16 21:00 Nasal Cannula 3.0 08/25/16 12:58 30 Intake and Output 08/26/16 08/26/16 08/27/16 15:00 23:00 07:00 Intake Total 520 ml 200 ml 800 ml Output Total 480 ml 500 ml 1070 ml Balance 40 ml -300 ml -270 ml Exam H EENT examination; supple neck, no JVD. No lymphadenopathy. Midline trachea. Pharynx is clear. Patient has good dentition. Chest examination; clear to auscultation bilaterally. S1-S2 audible, no murmurs. Regular rhythm. Abdomen examination; soft, bowel sounds are audible. Midline dressing in place. Extremity exam is; no peripheral edema. Pulses 2+ bilaterally. Next FRAME TABLE OPERATOR HELPER examination; no focal deficit. Results Result Diagram: 08/27/16 0640 08/27/16 0640 Results 24 hrs Laboratory Tests Test 08/27/16 06:40 White Blood Count 21.4 #H Red Blood Count 3.36 L Hemoglobin 10.0 L Hematocrit 31.2 L Mean Corpuscular Volume 92.9 Mean Corpuscular Hemoglobin 29.8 Mean Corpuscular Hemoglobin Concent 32.1 Red Cell Distribution Width 14.2 Platelet Count 295 # Mean Platelet Volume 9.4 Neutrophils % Lymphocytes % Monocytes % Neutrophils # Lymphocytes # Monocytes # Sodium Level 143 Potassium Level 4.1 Chloride Level 107 Carbon Dioxide Level 27 Anion Gap 13 Blood Urea Nitrogen 26 #H Creatinine 1.16 Glucose Level 96 Calcium Level 7.5 L Phosphorus Level 3.1 Magnesium Level 1.5 L Medications Medications Current Medications IV Flush (NS 10 ml) 10 ml PRN PRN IV IV PROTOCOL; Start 08/20/16 at 19:30 Ondansetron HCl (Zofran Inj) 4 mg Q6H PRN IV NAUSEA; Start 08/20/16 at 21:30 Pantoprazole 40 mg 40 mg BID@06,18 IV Last administered on 08/27/16 05:26; Admin Dose 40 MG; Start 08/21/16 at 06:00 Potassium Chloride 30 meq/ Dextrose 1,015 ml @ 10 mls/hr Q24H IV Last administered on 08/25/16 10:15; Admin Dose 50 MLS/HR; Start 08/25/16 at 09:00 Acetaminophen (Ofirmev 1000mg/ 100ml Iv) 100 ml @ 400 mls/hr Q6H PRN IVPB PAIN LEVEL 1-3; Start 08/25/16 at 10:30 Lorazepam (Ativan) 0.5 mg Q8H PRN IV AGITATION/ANXIETY; Start 08/25/16 at 13:00 Morphine Sulfate (morphine) 1 mg Q3H PRN IV PAIN LEVEL 4-7; Start 08/25/16 at 13:00 Morphine Sulfate 2 mg 2 mg Q3H PRN IV PAIN LEVEL 7-10 Last administered on 08/26 11:19; Admin Dose 2 MG; Start 08/25/16 at 13:00 Total Parenteral Nutrition 1,000 ml @ 40 mls/hr Q24H IV Last administered on 16:14; Admin Dose 40 MLS/HR; Start 08/25/16 at 15:00 Piperacillin Sod/ Tazobactam Sod 100 ml @ 200 mls/hr Q8 IVPB Last administered on 08/27/16 05:25; Admin Dose 200 MLS/HR; Start 08/26/16 at 14:00 Magnesium Sulfate (Magnesium Sulfate 2 Gm/50 ml) 50 ml @ 25 mls/hr ONCE ONCE IVPB ; Start 08/27/16 at 09:30; Stop 08/27/16 at 11:29 RAFAL SIMS Aug 27, 2016 10:41
--- NOTE | 2016-08-27 10:56 | PN ---
DATE: 08/27/2016 SUBJECTIVE: The patient was transferred from intensive care unit to telemetry, currently stable. T he patient complains of some mild abdominal pain, but no other events noted. No hemoptysis, hematem esis or hematochezia. OBJECTIVE: VITAL SIGNS: Blood pressure 120/76, respirations 18, pulse 75, temperature 98.0. HEENT: Head is normocephalic. NECK: Supple. HEART: Regular rate. LUNGS: Show diminished breath sounds at the bases. ABDOMEN: Soft. Positive dressing clean, dry and intact. EXTREMITIES: Negative for clubbing, cyanosis. No edema. DERMATOLOGIC: No rashes. MUSCULOSKELETAL: No joint effusions. NEUROLOGIC: No change in exam. MEDICATIONS: The patient's medications have been reviewed. LABORATORY DATA: Show sodium 143, potassium 4.0, chloride 107, BUN 26, creatinine 1.16. Magnesium 1.5. White count 21.4, hemoglobin 10.0, hematocrit 31.2, platelet count 295. ASSESSMENT AND PLAN: 1. Nonoliguric acute kidney injury with previous baseline creatinine of 0.9 mg/dL. Etiology of acu te kidney injury is secondary to acute tubular necrosis. The patient is status post hemodialysis. The patient has shown excellent renal recovery. Plan at this point is to take out Devan catheter. We will continue to monitor renal function closely. 2. Hypomagnesemia. Will replete with magnesium sulfate 2 grams IV x1. 3. Mineral bone disorder. Continue to monitor calcium and phosphorus levels. 4. Anemia. Continue to monitor hemoglobin and hematocrit levels. 5. Perforated gastric ulcer, status post repair. Continue to monitor. 6. Sepsis, status post shock. The patient's cultures are positive for Staphylococcus aureus. Cont inue current antibiotic regimen. 7. Volume overload, clinically improving. The patient is status post diuretic therapy. Continue t o monitor. 8. Respiratory failure, status post extubation. The patient is stable on room air. Continue to mo nitor. 9. Status post acute encephalopathy. 9. History of substance abuse. 10. Nutrition. Continue TPN. 11. Leukocytosis. Etiology may be reactive. As stated above, we will have Devan catheter remove d. Continue to monitor closely. Dictated By: SILVIA HERNANDEZ/TOMMY Conf#: [id number] DID#: [id number]
[2016-08-27] MEDS ORDERED: BARIUM SULF 2% 450 ML BTL (BERRY SMOOTHIE) PO ONE (12:00)
--- NOTE | 2016-08-27 12:10 | PN ---
Date/Time of Note Date/Time of Note DATE: 08/27/16 TIME: 12:08 Assessment/Plan VTE Prophylaxis VTE Prophylaxis Intervention: SCD's Lines/Catheters IV Catheter Type (from [facility]): rita Urinary Cath still in place: Yes Reason Cath still needed: other (indicate) Assessment/Plan Chief Complaint/Hosp Course Chief Complaint/Hosp Course 1. Abdominal pain secondary to perforated gastric ulcer status post surgical repair Continue postsurgical care, diet as per surgery 2. Acute kidney injury Continue dialysis per nephrology, improving 3. Smoking history Advise smoking cessation 4. Substance abuse Toxicology is positive for amphetamines 5. SIRS reactive secondary to #1 Continue Zosyn, infectious disease physician has been consulted Follow-up CT of abdomen and pelvis with oral contrast 6. Resp Failure Extubated on 08/25/2016, continue breathing treatment Pulm on the case 7. Hypokalemia, repleted We will continue monitor patient closely for recommendation management treatment as clinical course Prognosis guarded Continue TPN, advance diet as per surgery recommendation Problems: Subjective 24 Hr Interval Summary Free Text/Dictation Patient has been transferred to telemetry floor He has been placed on ice chips and clear liquid diet which she has been tolerating Does complain of having minimal abdominal discomfort No nausea vomiting or diarrhea Exam/Review of Systems Vital Signs Vitals Vital Signs Date Time Temp Pulse Resp B/P Pulse Ox O2 Delivery O2 Flow Rate FiO2 08/27/16 12:07 98 08/27/16 11:56 98.0 18 121/78 97 08/26/16 21:00 Nasal Cannula 3.0 08/25/16 12:58 30 Intake and Output 08/26/16 08/26/16 08/27/16 15:00 23:00 07:00 Intake Total 520 ml 200 ml 800 ml Output Total 480 ml 500 ml 1070 ml Balance 40 ml -300 ml -270 ml Exam General: The patient is well-developed, Not in acute distress. HEENT: Atraumatic, normocephalic. The pupils are equal and round . Neck: Supple with full range of motion. Chest: Normal expansion of the thorax during inspiration Lungs: Clear to auscultation bilaterally Heart: Normal S1-S2, Regular rhythm and rate. Abdomen: Soft , nontender, nondistended , bowel sounds are present. KARISSA drain in place, surgical site is dry and clean Extremities: Normal to inspection, no edema no cyanosis Neurologic: Normal mental status,The patient is awake, alert and oriented . Results Result Diagram: 08/27/16 0640 08/27/16 0640 Results 24 hrs Laboratory Tests Test 08/27/16 06:40 White Blood Count 21.4 #H Red Blood Count 3.36 L Hemoglobin 10.0 L Hematocrit 31.2 L Mean Corpuscular Volume 92.9 Mean Corpuscular Hemoglobin 29.8 Mean Corpuscular Hemoglobin Concent 32.1 Red Cell Distribution Width 14.2 Platelet Count 295 # Mean Platelet Volume 9.4 Neutrophils % 76.0 Lymphocytes % 8.0 L Reactive Lymphocytes % 1.0 Monocytes % 8.0 Eosinophils % 4.0 Metamyelocytes % 1.0 H Myelocytes % 1.0 H Promyelocytes % 1.0 H Neutrophils # 16.3 H Lymphocytes # 1.7 Monocytes # 1.7 H Eosinophils # 0.9 H Metamyelocytes # 0.2 Myelocytes # 0.2 Promyelocytes # 0.2 Sodium Level 143 Potassium Level 4.1 Chloride Level 107 Carbon Dioxide Level 27 Anion Gap 13 Blood Urea Nitrogen 26 #H Creatinine 1.16 Glucose Level 96 Calcium Level 7.5 L Phosphorus Level 3.1 Magnesium Level 1.5 L Medications Medications Current Medications IV Flush (NS 10 ml) 10 ml PRN PRN IV IV PROTOCOL; Start 08/20/16 at 19:30 Ondansetron HCl (Zofran Inj) 4 mg Q6H PRN IV NAUSEA; Start 08/20/16 at 21:30 Pantoprazole 40 mg 40 mg BID@06,18 IV Last administered on 08/27/16 05:26; Admin Dose 40 MG; Start 08/21/16 at 06:00 Potassium Chloride 30 meq/ Dextrose 1,015 ml @ 10 mls/hr Q24H IV Last administered on 08/25/16 10:15; Admin Dose 50 MLS/HR; Start 08/25/16 at 09:00 Acetaminophen (Ofirmev 1000mg/ 100ml Iv) 100 ml @ 400 mls/hr Q6H PRN IVPB PAIN LEVEL 1-3; Start 08/25/16 at 10:30 Lorazepam (Ativan) 0.5 mg Q8H PRN IV AGITATION/ANXIETY; Start 08/25/16 at 13:00 Morphine Sulfate (morphine) 1 mg Q3H PRN IV PAIN LEVEL 4-7; Start 08/25/16 at 13:00 Morphine Sulfate 2 mg 2 mg Q3H PRN IV PAIN LEVEL 7-10 Last administered on 08/26 11:19; Admin Dose 2 MG; Start 08/25/16 at 13:00 Total Parenteral Nutrition 1,000 ml @ 40 mls/hr Q24H IV Last administered on 16:14; Admin Dose 40 MLS/HR; Start 08/25/16 at 15:00 Piperacillin Sod/ Tazobactam Sod (Zosyn 3.375gm/ 100 ml (Pmx)) 100 ml @ 200 mls /hr Q8 IVPB Last administered on 08/27/16 05:25; Admin Dose 200 MLS/HR; Start 08/26/16 at 14:00 NAREN BURDEN MD Aug 27, 2016 12:10
--- NOTE | 2016-08-27 19:15 | RADRPT ---
PROCEDURE: CT Abdomen and Pelvis without contrast. CLINICAL INDICATION: Postop. Leukocytosis. TECHNIQUE: CT scan of the abdomen and pelvis without contrast was performed. Coronal and sagittal reformatted images were obtained from the axial source images. Images were reviewed on a high-[employer] PACS workstation. Total exam DLP is 1383.52 mGy-cm. CTDIvol is 21.22 mGy. One or more of the following dose reduction techniques were used: Automated exposure control, adjustment of the mA and/ or kV according to patient size, use of iterative reconstruction technique. COMPARISON: None. FINDINGS: There is moderate atelectasis at the lung bases posteriorly. The lung bases are otherwise normal. There are moderate-sized bilateral pleural effusions. The heart size is normal. There is no perica rdial effusion. A central line is present with the tip in the lower superior vena cava. The liver is normal in size and attenuation. There is no focal hepatic lesion. The gallbladder and bile ducts are normal. The spleen is normal in size. There is no focal splenic lesion. Both adrenals are normal with no enlargement or mass. The pancreas is unremarkable with no mass or evidence of pancreatitis. There is no renal mass or hydronephrosis. There is no renal calculus or ureteral calculus. The abdominal aorta is not dilated. There is no retroperitoneal lymphadenopathy or mass. There is no pelvic lymphadenopathy or mass. There is a Miranda catheter in the urinary bladder. The periappendiceal region is unremarkable with no evidence of appendicitis. Postoperative changes are noted with vertical midline skin chanec and a surgical drain in the right upper quadrant. There is a small amount of free fluid in the upper abdomen and in the pelvis. Flu id in the cul-de-sac measures 5.5 x 7.7 cm. A small amount of postoperative free air is also noted. There is mild diverticulosis of the sigmoid colon. The bowel and mesentery are otherwise normal. The osseous structures are unremarkable with no fracture or lytic lesion. IMPRESSION: 1. Moderate atelectasis at the lung bases posteriorly. 2. Moderate-sized bilateral pleural effusions. 3. Central line tip in the lower superior vena cava. 4. Miranda catheter in the bladder. 5. Postoperative changes in the upper abdomen. 6. Fluid in the cul-de-sac measures 5.5 x 7.7 cm and may be due to early abscess. 7. Mild diverticulosis of the sigmoid colon. 8. Otherwise unremarkable study. RPTAT: QQ .Amrik Polk MD, MD Date Time Electronically viewed and signed by .Amrik Polk MD, MD on 08/27/2016 19:15 .R/
[2016-08-28] VITALS (12 sets, daily range): BP systolic 110–145; BP diastolic 57–86; PULSE 84–96; RESP 20–21
[2016-08-28] MEDS: TPN 1,000 ML IV SCH ×3 (00:19→23:41)
[2016-08-28] MEDS: OXYCODONE/ACETAMINOPHEN (5/325) TAB PO PRN ×2 (01:16→08:32)
[2016-08-28] MEDS: PANTOPRAZOLE 40 MG INJ IV SCH ×2 (05:21→19:58)
[2016-08-28] MEDS: PIPER-TAZO 3.375 GM IV (PMX) 100 ML IVPB SCH ×3 (05:21→21:48)
[2016-08-28 06:13] LABS: ADD SCAN DIFF NO
[2016-08-28 06:50] LABS: MAGNESIUM 1.7 mg/dl (1.7-2.5); PHOSPHORUS 3.3 mg/dl (2.5-4.9)
[2016-08-28 07:06] LABS: ABNORMAL IP MESSAGE 1; BASOPHILS % 0.2 % (0.0-2.0); EOSINOPHILS # 0.5 10^3/ul (0.0-0.5); EOSINOPHILS % 2.6 % (0.0-7.0); HEMATOCRIT 30.7 % (42.0-52.0); HEMOGLOBIN 9.7 g/dl (14.0-18.0); LYMPHOCYTES # 2.5 10^3/ul (0.8-2.9); LYMPHOCYTES % 13.6 % (15.0-51.0); MEAN CORPUSCULAR HEMOGLOBIN 29.7 pg (29.0-33.0); MEAN CORPUSCULAR HGB CONC 31.6 g/dl (32.0-37.0); MEAN CORPUSCULAR VOLUME 93.9 fl (82.0-101.0); MEAN PLATELET VOLUME 9.5 fl (7.4-10.4); MONOCYTE # 1.7 10^3/ul (0.3-0.9); MONOCYTES % 9.1 % (0.0-11.0); NEUTROPHIL # 13.5 10^3/ul (1.6-7.5); NEUTROPHILS % 72.4 % (39.0-77.0); PLATELET COUNT 386 10^3/UL (140-415); RED BLOOD COUNT 3.27 10^6/ul (4.70-6.10); WHITE BLOOD COUNT 18.6 10^3/ul (4.8-10.8)
[2016-08-28 07:39] LABS: POTASSIUM 4.1 mmol/L (3.5-5.1)
[2016-08-28 07:41] LABS: CREATININE 0.98 mg/dl (0.61-1.24)
[2016-08-28 07:42] LABS: CALCIUM 7.7 mg/dl (8.4-10.2)
--- NOTE | 2016-08-28 08:19 | CONS ---
DATE OF ADMISSION: 08/19/2016 DATE OF CONSULTATION: 08/27/2016 TYPE OF CONSULTATION: Infectious disease. REASON FOR CONSULTATION: Antibiotic management. HISTORY OF PRESENT ILLNESS: The patient is a 36-year-old male who was transferred from outside hosp ital for abdominal pain, nausea, vomiting. His past medical history includes: 1. Substance abuse as well as marijuana abuse. 2. Questionable cirrhosis of liver with ascites. The patient presented to [facility] on 08/19/2016 with epigastric pain radiating around his abd omen, his chest into his back, which had lasted for the last few weeks. He had nausea and vomiting, questionable bloody vomitus. It was thought that CT scan of the abdomen and pelvis performed show ed signs of pancreatitis. His lipase was elevated as well. There was some minimal diverticulosis a nd there was ascites in the abdomen. The stomach was distended with fluid. The patient was transfe rred. On admission, white count was 11.4, hemoglobin and hematocrit were 11.6 and 36.8, platelet co unt 480,000. Today, the white count is 21.4. BUN and creatinine are 26/1.16. Urine is negative fo r nitrite and leukocyte esterase, he has 2+ hemoglobin. Microbiology: Gram stain of the respirator y culture shows Staph aureus. Gram stain of body fluid culture of peritoneal fluid grew out group B strep and alpha hemolytic strep. Blood cultures otherwise are negative. Urine cultures are negati ve. MRSA screen is negative. The patient was begun on Zosyn and is currently on Zosyn as of 2016. His chest x-ray currently shows findings suggestive of interstitial edema. He has an endotra cheal tube in place. He has a PICC line. There is interstitial edema and small bilateral effusions . No focal airspace opacification or pneumothorax is seen. The cardiomediastinal silhouette is wit hin normal limits. The osseous structures are unremarkable. Renal ultrasound: Slight echogenicity consistent with medical renal disease. The patient was seen in consultation by numerous physicians. He was seen by Dr. Webb and Dr. Jovi bahena. Currently, he has a Devan catheter in place. Abdominal pain secondary to perforated gastri c ulcer, status post surgical repair by Dr. Webb, continued postsurgical care. Acute kidney injur y, placed on dialysis. He is on Zosyn. PAST MEDICAL HISTORY: Operations as outlined. FAMILY HISTORY: Noncontributory. SOCIAL HISTORY: No history of smoking, drinking or abuse of drugs. ALLERGIES: NONE TO PENICILLIN, SULFA OR FOODS. MEDICATIONS: Per chart. REVIEW OF SYSTEMS: As per HPI. PHYSICAL EXAMINATION: GENERAL: The patient is a well-developed, well-nourished male who is awake, but noncommunicative, i n no acute distress. VITAL SIGNS: Stable. He is afebrile. SKIN: Without generalized rash. HEENT: Within normal limits. He has an endotracheal tube in place. EXTREMITIES: He has a left upper extremity PICC line. NECK: Supple. LYMPH NODES: None palpable. CHEST: Decreased breath sounds at the bases. HEART: Without murmur or gallop. ABDOMEN: Soft. Slightly tender without organosplenomegaly or masses. RECTAL AND GENITAL: Deferred. NEUROLOGIC: No focal neurological abnormalities. PLAN: The patient underwent exploratory laparotomy with oversewing of perforated antral ulcer, plac ement of a drain. He has a right femoral dual-lumen Vas-Cath placed. He had 3 liters of enteric co ntents in the abdomen and a tense pneumoperitoneum. The patient is doing much better at this point. He is currently on Zosyn and even though microbiologically he grew out alpha hemolytic strep and group B strep, which could be treated with ampicillin. However, he is growing Staphylococcus aureus from his ET tube. So, we will continue him on the Zosyn for the time being, since his chest x-ray just shows interstitial edema rather than consolidation or pneumonia. I will dictate my findings to the hospitalist, Dr. Webb, Dr. Goodman, Dr. Ruiz. Dictated By: JACK HUFFMAN MD, JD/TOMMY Conf#: [id number] DID#: [id number]
--- NOTE | 2016-08-28 10:09 | PN ---
DATE: 08/28/2016 SUBJECTIVE: The patient is stable. No acute events overnight. No fevers, chills, nausea, or vomit ing. No shortness of breath. OBJECTIVE: VITAL SIGNS: Blood pressure 116/77, respirations 21, pulse 90, temperature 98.5. HEENT: Head is normocephalic. NECK: Supple. HEART: Regular rate. LUNGS: Showed diminished breath sounds at the base. ABDOMEN: Soft, nontender to palpation. No rebound or guarding. EXTREMITIES: Negative for clubbing or cyanosis. No edema. DERMATOLOGIC: No rashes. MUSCULOSKELETAL: Have no joint effusion. NEUROLOGIC: No change in exam. MEDICATIONS: The patient's medications have been reviewed. LABORATORY DATA: Shows BMP within normal limits. Calcium 7.7. White count 18.6, hemoglobin 9.7, h ematocrit 30.7, platelet count 386. ASSESSMENT AND PLAN: 1. Nonoliguric acute kidney injury, with a previous baseline creatinine of 0.9 mg/dL. The patient is status post dialysis. The patient has shown excellent recovery. Continue the current treatment plan, supportive care, renally dose meds, and avoid nephrotoxins. 2. Mineral bone disorder. Continue to monitor calcium and phosphorus levels. 3. Anemia. Continue to monitor hemoglobin and hematocrit levels. 4. Perforated gastric ulcer. Status post repair. 5. Sepsis. Status post shock. The patient is completing an antibiotic course. 6. Status post respiratory failure. 7. Status post encephalopathy. 8. Nutrition. The patient is on TPN. 9. History of polysubstance abuse. 10. Leukocytosis, possibly reactive. Continue to monitor. Dictated By: SILVIA HERNANDEZ/TOMMY Conf#: [id number] DID#: [id number]
[2016-08-28] MEDS: POTASSIUM CHLORIDE 30 MEQ in DEXTROSE 5% 1,000 ML IV SCH (11:13)
--- NOTE | 2016-08-28 11:46 | CONS ---
Date/Time of Note Date/Time of Note DATE: 08/28/16 TIME: 11:44 Assessment/Plan Assessment/Plan Additional Assessment/Plan CT abdomen was reviewed from yesterday which is showing of 5.5 x 7 cm collection of fluid in the cul-de-sac. Next Assessment recommendations; 1. Patient admitted for perforated peptic ulcer underwent laparotomy with respiratory failure no successfully extubated several days ago. 2. Persistent leukocytosis however the friend is no downward. Patient clinically markedly improved overall. 3. Possibly seroma versus abscess in the cul-de-sac neurosurgeon to review. 4. Status post renal failure. Recommendation continue current treatment. Consultation Date/Type/Reason Admit Date/Time Aug 19, 2016 at 18:21 Initial Consult Date 08/21/16 Type of Consultation: Pulmonary/critical care 24 HR Interval Summary Free Text/Dictation Patient condition is markedly improved compared to yesterday. Patient had been ablating in the hallway. Come to the mild abdominal pain, denies any nausea vomiting. Denies any shortness of breath. Any fever or chills. During exam; young male, currently in no distress. Sitting in a chair by bedside. Exam/Review of Systems Vital Signs Vitals Vital Signs Date Time Temp Pulse Resp B/P Pulse Ox O2 Delivery O2 Flow Rate FiO2 08/28/16 11:04 98.2 90 20 116/84 99 08/28/16 06:07 3.0 08/27/16 07:35 Nasal Cannula 08/25/16 12:58 30 Intake and Output 08/27/16 08/27/16 08/28/16 14:59 22:59 06:59 Intake Total 1100 ml 950 ml Output Total 1300 ml 1015 ml Balance -200 ml -65 ml Exam HEENT exam; supple neck, no JVD. No lymphadenopathy. Midline trachea. No thyromegaly. Lungs is clear. Chest examination; clear to auscultation bilaterally. S1-S2 audible, no murmurs. Regular rhythm. Abdomen examination; soft, mildly tender. Midline dressing in place. Bowel sounds audible. Extremity examination; no peripheral edema. Pulses 2+ bilaterally. NEUROSURGERY SPINE PHYSICIAN examination; no focal deficit. Results Result Diagram: 08/28/16 0535 08/28/16 0535 Results 24 hrs Laboratory Tests Test 08/27/16 12:20 08/28/16 05:35 Lab Scanned Report REFERENCE LAB White Blood Count 18.6 H Red Blood Count 3.27 L Hemoglobin 9.7 L Hematocrit 30.7 L Mean Corpuscular Volume 93.9 Mean Corpuscular Hemoglobin 29.7 Mean Corpuscular Hemoglobin Concent 31.6 L Red Cell Distribution Width 14.0 Platelet Count 386 # Mean Platelet Volume 9.5 Neutrophils % 72.4 Lymphocytes % 13.6 L Monocytes % 9.1 Eosinophils % 2.6 Basophils % 0.2 Nucleated Red Blood Cells % 0.0 Neutrophils # 13.5 H Lymphocytes # 2.5 Monocytes # 1.7 H Eosinophils # 0.5 Basophils # 0.0 Nucleated Red Blood Cells # 0.0 Sodium Level 141 Potassium Level 4.1 Chloride Level 106 Carbon Dioxide Level 27 Anion Gap 12 Blood Urea Nitrogen 19 Creatinine 0.98 Glucose Level 102 Calcium Level 7.7 L Phosphorus Level 3.3 Magnesium Level 1.7 Medications Medications Current Medications IV Flush (NS 10 ml) 10 ml PRN PRN IV IV PROTOCOL; Start 08/20/16 at 19:30 Ondansetron HCl (Zofran Inj) 4 mg Q6H PRN IV NAUSEA; Start 08/20/16 at 21:30 Pantoprazole 40 mg 40 mg BID@06,18 IV Last administered on 08/28/16 05:21; Admin Dose 40 MG; Start 08/21/16 at 06:00 Potassium Chloride 30 meq/ Dextrose 1,015 ml @ 10 mls/hr Q24H IV Last administered on 08/28/16 11:13; Admin Dose 10 MLS/HR; Start 08/25/16 at 09:00 Acetaminophen (Ofirmev 1000mg/ 100ml Iv) 100 ml @ 400 mls/hr Q6H PRN IVPB PAIN LEVEL 1-3; Start 08/25/16 at 10:30 Lorazepam (Ativan) 0.5 mg Q8H PRN IV AGITATION/ANXIETY; Start 08/25/16 at 13:00 Morphine Sulfate (morphine) 1 mg Q3H PRN IV PAIN LEVEL 4-7; Start 08/25/16 at 13:00 Morphine Sulfate 2 mg 2 mg Q3H PRN IV PAIN LEVEL 7-10 Last administered on 08/26 11:19; Admin Dose 2 MG; Start 08/25/16 at 13:00 Total Parenteral Nutrition 1,000 ml @ 40 mls/hr Q24H IV Last administered on 00:19; Admin Dose 40 MLS/HR; Start 08/25/16 at 15:00 Piperacillin Sod/ Tazobactam Sod (Zosyn 3.375gm/ 100 ml (Pmx)) 100 ml @ 200 mls /hr Q8 IVPB Last administered on 08/28/16 05:21; Admin Dose 200 MLS/HR; Start 08/26/16 at 14:00 Oxycodone/ Acetaminophen (Percocet (5/ 325)) 2 tab Q6H PRN PO PAIN Last administered on 08/28/16 08:32; Admin Dose 2 TAB; Start 08/28/16 at 01:07 RAFAL SIMS 24, 2017 11:46
--- NOTE | 2016-08-28 12:19 | PN ---
DATE: 08/28/2016 SUBJECTIVE: No acute changes. The patient is alert, ambulating in the hallway, looks comfortable. No fevers. LABORATORY DATA: WBC 18.6, platelets 86, no shift, no bands. BUN 19, creatinine 0.98. MICROBIOLOGY: Peritoneal fluid culture on admission grew alpha hemolytic strep species and Streptoc occus agalactiae group B. Endotracheal aspirate grew Staphylococcus aureus. ANTIMICROBIALS: The patient is on Zosyn. DIAGNOSTICS: CT of the abdomen and pelvis from yesterday revealed fluid in the cul-de-sac measuring 5.5 x 7.7 cm with mild diverticulosis of the sigmoid colon. INDWELLINGS: The patient has PICC line and Miranda catheter. PHYSICAL EXAMINATION: GENERAL: Well-developed, well-nourished, middle-aged man who is alert, in no distress. HEENT: Head atraumatic, normocephalic. Sclerae anicteric. Buccal mucosa pink. NECK: Supple. CHEST: Rise symmetrical. Breath sounds clear. HEART: S1, S2. ABDOMEN: Soft, bowel sounds present. EXTREMITIES: Without cyanosis. ASSESSMENT: 1. Status post perforated peptic ulcer repair, exploratory laparotomy on 08/20/2016. 2. Persistent leukocytosis with evidence of fluid in the cul-de-sac. Rule out abscess versus serom a. 3. Status post postoperative respiratory failure and renal failure. 4. History of substance abuse. PLAN: The patient remains stable, covered with appropriate antibiotics. Surgery on case. We will follow recommendations. Dictated By: DIEGO CHEW HAND SILVERING SUPERVISOR for JACK STEVENS/TOMMY Conf#: [id number] DID#: [id number]
--- NOTE | 2016-08-28 12:44 | PN ---
Date/Time of Note Date/Time of Note DATE: 08/28/16 TIME: 12:37 Assessment/Plan VTE Prophylaxis VTE Prophylaxis Intervention: SCD's Lines/Catheters IV Catheter Type (from Nrs): PICC Line Central line still needed: Yes Urinary Cath still in place: Yes Reason Cath still needed: other (indicate) Assessment/Plan Chief Complaint/Hosp Course Chief Complaint/Hosp Course 1. Abdominal pain secondary to perforated gastric ulcer status post surgical repair Continue postsurgical care, diet as per surgery 2. Acute kidney injury Continue dialysis per nephrology, improving 3. Smoking history Advise smoking cessation 4. Substance abuse Toxicology is positive for amphetamines 5. SIRS reactive secondary to #1 Continue Zosyn, infectious disease physician has been consulted Follow-up CT of abdomen and pelvis with oral contrast 6. Resp Failure Extubated on 08/25/2016, continue breathing treatment Pulm on the case 7. Cul-de-sac fluid collection with possible abscess Interventional radiology consulted for CT-guided drainage Continue IV antibiotics 7. Hypokalemia, repleted We will continue monitor patient closely for recommendation management treatment as clinical course Prognosis good Continue TPN, advance diet as per surgery recommendation Problems: Subjective 24 Hr Interval Summary Free Text/Dictation Patient complains of having low back pain He was admitted to ambulate with physical therapy greater than 25 feet Tolerating p.o. intake Exam/Review of Systems Vital Signs Vitals Vital Signs Date Time Temp Pulse Resp B/P Pulse Ox O2 Delivery O2 Flow Rate FiO2 08/28/16 12:04 96 08/28/16 11:04 98.2 20 116/84 99 08/28/16 06:07 3.0 08/27/16 07:35 Nasal Cannula 08/25/16 12:58 30 Intake and Output 08/27/16 08/27/16 08/28/16 15:00 23:00 07:00 Intake Total 1100 ml 950 ml Output Total 1300 ml 1015 ml Balance -200 ml -65 ml Exam General: The patient is well-developed, Not in acute distress. HEENT: Atraumatic, normocephalic. The pupils are equal and round . Neck: Supple Chest: Normal expansion of the thorax during inspiration Lungs: Clear to auscultation bilaterally Heart: Normal S1-S2, Regular rhythm and rate. Abdomen: Soft , nontender, nondistended , bowel sounds are present. Surgical site is dry and clean, drain in place Extremities: Normal to inspection, no edema no cyanosis Neurologic: Normal mental status,The patient is awake, alert and oriented . Results Result Diagram: 08/28/1635 08/28/16 0535 Results 24 hrs Laboratory Tests Test 08/28/16 05:35 White Blood Count 18.6 H Red Blood Count 3.27 L Hemoglobin 9.7 L Hematocrit 30.7 L Mean Corpuscular Volume 93.9 Mean Corpuscular Hemoglobin 29.7 Mean Corpuscular Hemoglobin Concent 31.6 L Red Cell Distribution Width 14.0 Platelet Count 386 # Mean Platelet Volume 9.5 Neutrophils % 72.4 Lymphocytes % 13.6 L Monocytes % 9.1 Eosinophils % 2.6 Basophils % 0.2 Nucleated Red Blood Cells % 0.0 Neutrophils # 13.5 H Lymphocytes # 2.5 Monocytes # 1.7 H Eosinophils # 0.5 Basophils # 0.0 Nucleated Red Blood Cells # 0.0 Sodium Level 141 Potassium Level 4.1 Chloride Level 106 Carbon Dioxide Level 27 Anion Gap 12 Blood Urea Nitrogen 19 Creatinine 0.98 Glucose Level 102 Calcium Level 7.7 L Phosphorus Level 3.3 Magnesium Level 1.7 Medications Medications Current Medications IV Flush (NS 10 ml) 10 ml PRN PRN IV IV PROTOCOL; Start 08/20/16 at 19:30 Ondansetron HCl (Zofran Inj) 4 mg Q6H PRN IV NAUSEA; Start 08/20/16 at 21:30 Pantoprazole 40 mg 40 mg BID@06,18 IV Last administered on 08/28/16 05:21; Admin Dose 40 MG; Start 08/21/16 at 06:00 Potassium Chloride 30 meq/ Dextrose 1,015 ml @ 10 mls/hr Q24H IV Last administered on 08/28/16 11:13; Admin Dose 10 MLS/HR; Start 08/25/16 at 09:00 Acetaminophen (Ofirmev 1000mg/ 100ml Iv) 100 ml @ 400 mls/hr Q6H PRN IVPB PAIN LEVEL 1-3; Start 08/25/16 at 10:30 Lorazepam (Ativan) 0.5 mg Q8H PRN IV AGITATION/ANXIETY; Start 08/25/16 at 13:00 Morphine Sulfate (morphine) 1 mg Q3H PRN IV PAIN LEVEL 4-7; Start 08/25/16 at 13:00 Morphine Sulfate 2 mg 2 mg Q3H PRN IV PAIN LEVEL 7-10 Last administered on 08/26 11:19; Admin Dose 2 MG; Start 08/25/16 at 13:00 Total Parenteral Nutrition 1,000 ml @ 40 mls/hr Q24H IV Last administered on 00:19; Admin Dose 40 MLS/HR; Start 08/25/16 at 15:00 Piperacillin Sod/ Tazobactam Sod (Zosyn 3.375gm/ 100 ml (Pmx)) 100 ml @ 200 mls /hr Q8 IVPB Last administered on 08/28/16 05:21; Admin Dose 200 MLS/HR; Start 08/26/16 at 14:00 Oxycodone/ Acetaminophen (Percocet (5/ 325)) 2 tab Q6H PRN PO PAIN Last administered on 08/28/16 08:32; Admin Dose 2 TAB; Start 08/28/16 at 01:07 NAREN BURDEN MD Aug 28, 2016 12:44
--- NOTE | 2016-08-28 14:53 | PN ---
DATE: 08/28/2016 Postoperative day #8. Although the patient is afebrile and his white count has come down somewhat, the CT scan shows a pelvic collection which may be loculated fluid versus abscess. His abdominal ex amination is benign. PLAN: The patient will undergo CT drainage. Dictated By: TIFFANI ALCANTAR/TOMMY Conf#: [id number] DID#: [id number]
[2016-08-28] MEDS ORDERED: BARIUM SULF 2% 450 ML BTL (BERRY SMOOTHIE) PO ONE (22:30)
[2016-08-29] VITALS (11 sets, daily range): BP systolic 104–125; BP diastolic 59–74; PULSE 89–100; RESP 18–21
[2016-08-29] MEDS: PANTOPRAZOLE 40 MG INJ IV SCH ×2 (05:27→17:22)
[2016-08-29] MEDS: PIPER-TAZO 3.375 GM IV (PMX) 100 ML IVPB SCH ×3 (05:28→21:29)
[2016-08-29 07:04] LABS: ADD SCAN DIFF NO
[2016-08-29 07:09] LABS: ABNORMAL IP MESSAGE 1; BASOPHILS % 0.2 % (0.0-2.0); EOSINOPHILS # 0.4 10^3/ul (0.0-0.5); EOSINOPHILS % 2.2 % (0.0-7.0); HEMATOCRIT 27.7 % (42.0-52.0); HEMOGLOBIN 9.1 g/dl (14.0-18.0); LYMPHOCYTES # 2.1 10^3/ul (0.8-2.9); LYMPHOCYTES % 10.6 % (15.0-51.0); MEAN CORPUSCULAR HEMOGLOBIN 30.1 pg (29.0-33.0); MEAN CORPUSCULAR HGB CONC 32.9 g/dl (32.0-37.0); MEAN CORPUSCULAR VOLUME 91.7 fl (82.0-101.0); MONOCYTE # 1.8 10^3/ul (0.3-0.9); MONOCYTES % 9.1 % (0.0-11.0); NEUTROPHIL # 15.3 10^3/ul (1.6-7.5); NEUTROPHILS % 76.2 % (39.0-77.0); PLATELET COUNT 437 10^3/UL (140-415); RED BLOOD COUNT 3.02 10^6/ul (4.70-6.10); RED CELL DISTRIBUTION WIDTH 13.9 % (11.5-14.5); WHITE BLOOD COUNT 20.1 10^3/ul (4.8-10.8)
[2016-08-29 07:20] LABS: POTASSIUM 3.9 mmol/L (3.5-5.1)
[2016-08-29 07:22] LABS: CREATININE 0.82 mg/dl (0.61-1.24)
[2016-08-29 07:23] LABS: CALCIUM 7.5 mg/dl (8.4-10.2)
[2016-08-29] MEDS: POTASSIUM CHLORIDE 30 MEQ in DEXTROSE 5% 1,000 ML IV SCH (09:00)
[2016-08-29] MEDS ORDERED: SOD CHLORIDE 0.9% 100 ML ONE (09:33)
[2016-08-29] MEDS ORDERED: IOHEXOL 300MG/ML 150 ML BTL ONE (09:33)
--- NOTE | 2016-08-29 09:57 | PN ---
DATE: SUBJECTIVE: The patient is stable, no acute events overnight. No fevers, chills, nausea, vomiting. OBJECTIVE: VITAL SIGNS: Blood pressure 114/74, respirations 19, pulse 79, temperature 98.4. HEENT: Head is normocephalic. NECK: Supple. HEART: Regular rate. LUNGS: Show diminished breath sounds at the base. ABDOMEN: Soft, nontender to palpation. No rebound or guarding. EXTREMITIES: Negative for clubbing, cyanosis, no edema. DERMATOLOGIC: No rashes. MUSCULOSKELETAL: No joint effusions. NEUROLOGIC: No change in exam. MEDICATIONS: The patient's medications have been reviewed. LABORATORY DATA: Shows BMP within normal limits. White count 20.1, hemoglobin 9.1, hematocrit 27.7 , platelet count is 434. ASSESSMENT AND PLAN: 1. Nonoliguric acute kidney injury with a previous baseline creatinine of 0.9 mg/dL. Etiology is s econdary to acute tubular necrosis. Patient is status post hemodialysis. The patient has excellent recovery, continue current treatment plan, supportive care, renally dose all meds. 2. Mineral bone disorder. Continue to monitor calcium and phosphorus levels. 3. Anemia. Continue to monitor hemoglobin and hematocrit levels. 4. Perforated gastric ulcer, status post repair. 5. Sepsis, status post shock. The patient is completing antibiotic course. 6. Status post respiratory failure. 7. Status post encephalopathy. 8. Nutrition. The patient is on TPN. 9. History of polysubstance abuse. 10. Leukocytosis, possibly reactive, infectious, continue to monitor. Dictated By: SILVIA HERNANDEZ/TOMMY Conf#: [id number] DID#: [id number]
--- NOTE | 2016-08-29 10:09 | CONS ---
Date/Time of Note Date/Time of Note DATE: 08/29/16 TIME: 10:09 Assessment/Plan Assessment/Plan Chief Complaint/Hosp Course ID PROGRESS NOTE TOTAL ABX DAY # 10 =>Zosyn POD #9 => WBC elevated, no fevers 24H INTERVAL SUMMARY * A/A/O ->OOC-> Chair w/family present, c/o ongoing ABD pain post op - w/some measure of anxiety component r/t pain, pain keeps him up at night * No fevers, on TPN * 08/28/16 CT ABD/Pelvis: IMPRESSION:Persistent discrete fluid collections pelvis. Abscess cannot be ruled out. This collection is amendable to CT guided drainage if clinically indicated.Status post laparotomy with presumed postsurgical pneumoperitoneum. Small volume ascites.Small pleural effusions with bibasilar atelectasis. Visible but nonpathologically enlarged rome pancreatic and celiac nodes. MICRO REVIEWED Pio: 08/20/16 Rcvd: 08/20/16 Source: PERITONEAL Sp Descrip: Procedure Result Microbiology GRAM STAIN Final POLYMORPH. LEUKOCYTE 2+ GRAM POS COCCI IN PAIRS 2+ BODY FLUID CULTURE Final Organism 1 ALPHA HEMOLYTIC STREP SPP QUANTITY 2+ . VIRIDANS GROUP Organism 2 STREP AGALACTIAE - (GROUP B) QUANTITY 1+ ALPHA HEMO M.I.C. RX --------- --- CEFOTAXIME 0.004 S PENICILLIN 0.004 S VANCOMYCIN <=0.5 S ALPHA HEMO S AGA(GR B Zone Size RX Zone Size RX --------- --- --------- --- * AMPICILLIN S * CEFAZOLIN S * CEFOTAXIME S * CEFUROXIME S * CLINDAMYCIN S R * ERYTHROMYCIN S R Pio: 08/21/16 Rcvd: 08/21/16 Source: ENDOTRACHE Sp Descrip: Procedure Result Microbiology GRAM STAIN Final POLYMORPH. LEUKOCYTE NONE SEEN EPITHELIAL CELLS NONE SEEN RESPIRATORY CULTURE Final Organism 1 STAPHYLOCOCCUS AUREUS QUANTITY RARE S AUREUS M.I.C. RX --------- --- CEFAZOLIN S CIPROFLOXACIN <=0.5 S CLINDAMYCIN <=0.25 S DOXYCYCLINE S ERYTHROMYCIN <=0.25 S LEVOFLOXACIN 0.25 S OXACILLIN <=0.25 S PENICILLIN-G >=0.5 R RIFAMPIN <=0.5 S VANCOMYCIN <=0.5 S TRIMETHOPRIM/SULFAMETHOXAZOLE <=10 S PHYSICAL EXAMINATION: GENERAL: VSS, NAD HEENT: Unremarkable NECK: Trach midline CHEST: Equal chest rise bilaterally, without dyspnea on observation HEART: Pulse RRR ABDOMEN: Soft/peg EXTREMITIES: Warm SKIN: See hard chart skin assessment ID ASSESSMENT: 36 yo M w/PMHx ETOH, Tobacco, MJ use admit with: 1. Status post perforated peptic ulcer repair, exploratory laparotomy on 2016. 2. Persistent ABD pain w/distension => Rule out post-op intra-ABD abscess versus seroma post-op 3. SIRS w/rising WBC, no fevers, VSS 4. Bilateral pleural effusions w/resolving VAP -> Sputum (+)KEARA via ETT on 5. Mild diverticulosis of the sigmoid colon. 6. Status post postoperative respiratory failure and renal failure. (-)MRSA Nares INVASIVES: PIV ABX ALLERGY: KNDA CURRENT ABX: Zosyn #10 ID RECOMMENDATIONS: 1. Continue Zosyn 2. Will Rx Heating Pad - may assist w/some ABD pain due to gas trapping 3. Watch for opportunistic infx on Zosyn such as Yeast & C.Diff 4. Extensive patient/family education about ABD pain etiology, need to increase mobility, ABX plan . Problems: Consultation Date/Type/Reason Admit Date/Time Aug 19, 2016 at 18:21 Initial Consult Date 08/21/16 Type of Consultation: ID Exam/Review of Systems Vital Signs Vitals Vital Signs Date Time Temp Pulse Resp B/P Pulse Ox O2 Delivery O2 Flow Rate FiO2 08/29/16 08:14 89 08/29/16 07:52 98.0 19 114/74 95 08/28/16 08:05 Nasal Cannula 3.0 08/25/16 12:58 30 Intake and Output 08/28/16 08/28/16 08/29/16 15:00 23:00 07:00 Intake Total 1400 ml 1075 ml Output Total 1175 ml 1775 ml Balance 225 ml -700 ml Results Result Diagram: 08/29/16 0612 08/29/16 0612 Results 24 hrs Laboratory Tests Test 08/29/16 06:12 White Blood Count 20.1 H Red Blood Count 3.02 L Hemoglobin 9.1 L Hematocrit 27.7 L Mean Corpuscular Volume 91.7 Mean Corpuscular Hemoglobin 30.1 Mean Corpuscular Hemoglobin Concent 32.9 Red Cell Distribution Width 13.9 Platelet Count 437 H Mean Platelet Volume 9.0 Neutrophils % 76.2 Lymphocytes % 10.6 L Monocytes % 9.1 Eosinophils % 2.2 Basophils % 0.2 Nucleated Red Blood Cells % 0.0 Neutrophils # 15.3 H Lymphocytes # 2.1 Monocytes # 1.8 H Eosinophils # 0.4 Basophils # 0.0 Nucleated Red Blood Cells # 0.0 Sodium Level 137 Potassium Level 3.9 Chloride Level 105 Carbon Dioxide Level 27 Anion Gap 9 Blood Urea Nitrogen 14 Creatinine 0.82 Glucose Level 107 Calcium Level 7.5 L Medications Medications Current Medications IV Flush (NS 10 ml) 10 ml PRN PRN IV IV PROTOCOL; Start 08/20/16 at 19:30 Ondansetron HCl (Zofran Inj) 4 mg Q6H PRN IV NAUSEA; Start 08/20/16 at 21:30 Pantoprazole 40 mg 40 mg BID@06,18 IV Last administered on 08/29/16 05:27; Admin Dose 40 MG; Start 08/21/16 at 06:00 Potassium Chloride 30 meq/ Dextrose 1,015 ml @ 10 mls/hr Q24H IV Last administered on 08/28/16 11:13; Admin Dose 10 MLS/HR; Start 08/25/16 at 09:00 Acetaminophen (Ofirmev 1000mg/ 100ml Iv) 100 ml @ 400 mls/hr Q6H PRN IVPB PAIN LEVEL 1-3 Last administered on 08/28/16 20:11; Admin Dose 400 MLS/HR; Start 08/25/16 at 10:30 Lorazepam (Ativan) 0.5 mg Q8H PRN IV AGITATION/ANXIETY; Start 08/25/16 at 13:00 Morphine Sulfate (morphine) 1 mg Q3H PRN IV PAIN LEVEL 4-7 Last administered on 08/29/16 09:51; Admin Dose 1 MG; Start 08/25/16 at 13:00 Morphine Sulfate 2 mg 2 mg Q3H PRN IV PAIN LEVEL 7-10 Last administered on 08/26 11:19; Admin Dose 2 MG; Start 08/25/16 at 13:00 Total Parenteral Nutrition 1,000 ml @ 40 mls/hr Q24H IV Last administered on 23:41; Admin Dose 40 MLS/HR; Start 08/25/16 at 15:00 Piperacillin Sod/ Tazobactam Sod (Zosyn 3.375gm/ 100 ml (Pmx)) 100 ml @ 200 mls /hr Q8 IVPB Last administered on 08/29/16 05:28; Admin Dose 200 MLS/HR; Start 08/26/16 at 14:00 Oxycodone/ Acetaminophen (Percocet (5/ 325)) 2 tab Q6H PRN PO PAIN Last administered on 08/28/16 08:32; Admin Dose 2 TAB; Start 08/28/16 at 01:07 BRE LI NP Aug 29, 2016 10:09
--- NOTE | 2016-08-29 10:46 | PN ---
DATE: 08/29/2016 Postoperative day #9. The patient is complaining of vague abdominal pain and his white count has co me up to 20,000. A repeat CT scan has just been completed and the reading is pending. The abdomina l examination is benign and the incision is clean. PLAN: We are anticipating CT drainage of a pelvic fluid collection, barring any other findings on t his morning's CT. Dictated By: TIFFANI ALCANTAR/TOMMY Conf#: [id number] DID#: [id number]
--- NOTE | 2016-08-29 11:33 | RADRPT ---
PROCEDURE: CT abdomen and pelvis without contrast. CLINICAL INDICATION: Abscess TECHNIQUE: CT scan of the abdomen and pelvis with oral but without intravenous contrast was perfor med and is reconstructed at 2.5 mm contiguous axial intervals from the dome of the diaphragm to the inferior pubic rami.. The patient was scanned without intravenous contrast. Sagittal and coronal r eformatted images were obtained from the axial source images. The calculated radiation dose measures 2647 mGy centimeters. The CTDI measures 21 mGy. COMPARISON: CT abdomen pelvis August 27, 2016 FINDINGS: There are stable small to moderate-sized bilateral pleural effusions with near-complete collapse of the left lower lobe and partial collapse of the right lower lobe. No alveolar infiltrate is seen. The liver is of normal size, contour and attenuation with no mass or ductal dilatation. No gallston es are visualized. No none or pancreatic abnormalities present. there is a 5 mm noncalcified left adrenal mass compatible with a small adenoma. Kidneys are of normal size and contour. No hydronephrosis, calculus or masses seen. Ureters are o f normal course and caliber with no stone. Miranda catheter is present in the urinary bladder. The pr ostate and seminal vesicles are normal. There is no aneurysm. No retroperitoneal adenopathy is present. There are visible but nonpatholog ically enlarged nodes surrounding the celiac artery and adjacent to the head of the pancreas. No bowel mass or obstruction is present. The appendix is not confidently visualized, however, no i nflamed appendix is seen. The patient is status post midline laparotomy. A surgical drain is again noted with the tip in the gastrohepatic space. There is a small volume of pneumoperitoneum. Small volume of ascites is seen. Again noted is a discrete fluid collection in the right jorge pelvis ext ending into the cul-de-sac measuring approximately 12 cm AP by 8 cm TR. There is questionable mural enhancement. Abscess cannot be ruled out. This collection is amendable to CT guided drainage if c linically indicated. No other discrete fluid collection is visualized. The osseous structures are intact. IMPRESSION: Persistent discrete fluid collections pelvis. Abscess cannot be ruled out. This collection is amen dable to CT guided drainage if clinically indicated. Status post laparotomy with presumed postsurgical pneumoperitoneum. Small volume ascites. Small pleural effusions with bibasilar atelectasis. Visible but nonpathologically enlarged rome pancreatic and celiac nodes. .Trenton Cristobal MD, MD Date Time Electronically viewed and signed by .Trenton Cristobal MD, MD on 08/29/2016 11:32 .A/
[2016-08-29] MEDS: OXYCODONE/ACETAMINOPHEN (5/325) TAB PO PRN (11:57)
--- NOTE | 2016-08-29 12:12 | PN ---
Date/Time of Note Date/Time of Note DATE: 08/29/16 TIME: 12:08 Assessment/Plan VTE Prophylaxis VTE Prophylaxis Intervention: SCD's Lines/Catheters IV Catheter Type (from Nrs): PICC Line Central line still needed: Yes Urinary Cath still in place: Yes Reason Cath still needed: other (indicate) Assessment/Plan Chief Complaint/Hosp Course Chief Complaint/Hosp Course 1. Abdominal pain secondary to perforated gastric ulcer status post surgical repair Continue postsurgical care, diet as per surgery 2. Acute kidney injury Continue dialysis per nephrology, improving 3. Smoking history Advise smoking cessation 4. Substance abuse Toxicology is positive for amphetamines 5. SIRS reactive secondary to #1 Continue Zosyn, infectious disease physician has been consulted Follow-up CT of abdomen and pelvis with oral contrast 6. Resp Failure Extubated on 08/25/2016, continue breathing treatment Pulm on the case 7. Cul-de-sac fluid collection with possible abscess Interventional radiology consulted for CT-guided drainage Continue IV antibiotics 7. Hypokalemia, repleted We will continue monitor patient closely for recommendation management treatment as clinical course Prognosis good Continue TPN, advance diet as per surgery recommendation Problems: Subjective 24 Hr Interval Summary Free Text/Dictation Patient complains of having abdominal discomfort Denies of any chest pain Difficulty with ambulation secondary to abdominal discomfort Exam/Review of Systems Vital Signs Vitals Vital Signs Date Time Temp Pulse Resp B/P Pulse Ox O2 Delivery O2 Flow Rate FiO2 08/29/16 11:30 98.2 93 19 125/73 93 08/28/16 08:05 Nasal Cannula 3.0 08/25/16 12:58 30 Intake and Output 08/28/16 08/28/16 08/29/16 15:00 23:00 07:00 Intake Total 1400 ml 1075 ml Output Total 1175 ml 1775 ml Balance 225 ml -700 ml Exam General: The patient is well-developed, Not in acute distress. HEENT: Atraumatic, normocephalic. The pupils are equal and round . Neck: Supple with full range of motion. Chest: Normal expansion of the thorax during inspiration Lungs: Clear to auscultation bilaterally Heart: Normal S1-S2, Regular rhythm and rate. Abdomen: Soft , nontender, nondistended , bowel sounds are present. Surgical site is dry and clean, KARISSA drain with clear peritoneal fluid Extremities: Normal to inspection, no edema no cyanosis Neurologic: Normal mental status,The patient is awake, alert and oriented . Results Result Diagram: 08/29/16 0612 08/29/16 0612 Results 24 hrs Laboratory Tests Test 08/29/16 06:12 White Blood Count 20.1 H Red Blood Count 3.02 L Hemoglobin 9.1 L Hematocrit 27.7 L Mean Corpuscular Volume 91.7 Mean Corpuscular Hemoglobin 30.1 Mean Corpuscular Hemoglobin Concent 32.9 Red Cell Distribution Width 13.9 Platelet Count 437 H Mean Platelet Volume 9.0 Neutrophils % 76.2 Lymphocytes % 10.6 L Monocytes % 9.1 Eosinophils % 2.2 Basophils % 0.2 Nucleated Red Blood Cells % 0.0 Neutrophils # 15.3 H Lymphocytes # 2.1 Monocytes # 1.8 H Eosinophils # 0.4 Basophils # 0.0 Nucleated Red Blood Cells # 0.0 Sodium Level 137 Potassium Level 3.9 Chloride Level 105 Carbon Dioxide Level 27 Anion Gap 9 Blood Urea Nitrogen 14 Creatinine 0.82 Glucose Level 107 Calcium Level 7.5 L Medications Medications Current Medications IV Flush (NS 10 ml) 10 ml PRN PRN IV IV PROTOCOL; Start 08/20/16 at 19:30 Ondansetron HCl (Zofran Inj) 4 mg Q6H PRN IV NAUSEA; Start 08/20/16 at 21:30 Pantoprazole 40 mg 40 mg BID@06,18 IV Last administered on 08/29/16 05:27; Admin Dose 40 MG; Start 08/21/16 at 06:00 Potassium Chloride 30 meq/ Dextrose 1,015 ml @ 10 mls/hr Q24H IV Last administered on 08/28/16 11:13; Admin Dose 10 MLS/HR; Start 08/25/16 at 09:00 Acetaminophen (Ofirmev 1000mg/ 100ml Iv) 100 ml @ 400 mls/hr Q6H PRN IVPB PAIN LEVEL 1-3 Last administered on 08/28/16 20:11; Admin Dose 400 MLS/HR; Start 08/25/16 at 10:30 Lorazepam (Ativan) 0.5 mg Q8H PRN IV AGITATION/ANXIETY; Start 08/25/16 at 13:00 Morphine Sulfate (morphine) 1 mg Q3H PRN IV PAIN LEVEL 4-7 Last administered on 08/29/16 09:51; Admin Dose 1 MG; Start 08/25/16 at 13:00 Morphine Sulfate 2 mg 2 mg Q3H PRN IV PAIN LEVEL 7-10 Last administered on 08/26 11:19; Admin Dose 2 MG; Start 08/25/16 at 13:00 Total Parenteral Nutrition 1,000 ml @ 40 mls/hr Q24H IV Last administered on 23:41; Admin Dose 40 MLS/HR; Start 08/25/16 at 15:00 Piperacillin Sod/ Tazobactam Sod (Zosyn 3.375gm/ 100 ml (Pmx)) 100 ml @ 200 mls /hr Q8 IVPB Last administered on 08/29/16 05:28; Admin Dose 200 MLS/HR; Start 08/26/16 at 14:00 Oxycodone/ Acetaminophen (Percocet (5/ 325)) 2 tab Q6H PRN PO PAIN Last administered on 08/29/16 11:57; Admin Dose 2 TAB; Start 08/28/16 at 01:07 NAREN BURDEN MD Aug 29, 2016 12:12
[2016-08-29] MEDS: TPN 1,000 ML IV SCH (14:07)
[2016-08-29] MEDS: morphine 2 MG INJ IV PRN (19:58)
[2016-08-30] VITALS (10 sets, daily range): BP systolic 126–137; BP diastolic 68–78; PULSE 80–100; RESP 16–18
[2016-08-30] MEDS: PIPER-TAZO 3.375 GM IV (PMX) 100 ML IVPB SCH ×3 (05:15→20:24)
[2016-08-30] MEDS: PANTOPRAZOLE 40 MG INJ IV SCH ×2 (05:15→17:47)
[2016-08-30 07:18] LABS: ABNORMAL IP MESSAGE 1; ADD SCAN DIFF NO; BASOPHIL # 0.1 10^3/ul (0.0-0.1); BASOPHILS % 0.3 % (0.0-2.0); EOSINOPHILS # 0.3 10^3/ul (0.0-0.5); EOSINOPHILS % 1.5 % (0.0-7.0); HEMATOCRIT 28.4 % (42.0-52.0); HEMOGLOBIN 9.2 g/dl (14.0-18.0); LYMPHOCYTES # 2.2 10^3/ul (0.8-2.9); LYMPHOCYTES % 11.1 % (15.0-51.0); MEAN CORPUSCULAR HEMOGLOBIN 29.8 pg (29.0-33.0); MEAN CORPUSCULAR HGB CONC 32.4 g/dl (32.0-37.0); MEAN CORPUSCULAR VOLUME 91.9 fl (82.0-101.0); MONOCYTE # 1.8 10^3/ul (0.3-0.9); MONOCYTES % 9.3 % (0.0-11.0); NEUTROPHIL # 14.9 10^3/ul (1.6-7.5); NEUTROPHILS % 76.3 % (39.0-77.0); PLATELET COUNT 457 10^3/UL (140-415); RED BLOOD COUNT 3.09 10^6/ul (4.70-6.10); RED CELL DISTRIBUTION WIDTH 13.8 % (11.5-14.5); WHITE BLOOD COUNT 19.6 10^3/ul (4.8-10.8)
[2016-08-30 07:20] LABS: POTASSIUM 3.9 mmol/L (3.5-5.1)
[2016-08-30 07:22] LABS: CREATININE 0.79 mg/dl (0.61-1.24)
[2016-08-30 07:23] LABS: CALCIUM 7.2 mg/dl (8.4-10.2)
[2016-08-30 07:24] LABS: MAGNESIUM 1.4 mg/dl (1.7-2.5)
[2016-08-30] MEDS: POTASSIUM CHLORIDE 30 MEQ in DEXTROSE 5% 1,000 ML IV SCH (09:00)
[2016-08-30] MEDS ORDERED: MAGNESIUM SULFATE 2 GM/50 ML 50 ML IVPB ONE (09:00)
[2016-08-30] MEDS: OXYCODONE/ACETAMINOPHEN (5/325) TAB PO PRN ×2 (09:12→23:41)
--- NOTE | 2016-08-30 09:28 | PN ---
DATE: 08/30/2016 SUBJECTIVE: The patient is stable. The patient continues to have pain, receiving pain medications. No other events noted. OBJECTIVE: VITAL SIGNS: Blood pressure 137/70, respiration 19, temperature 98.5. I's AND O'S: The patient had 2 liters in, 2.5 liters out. HEENT: Head is normocephalic. NECK: Supple. HEART: Regular rate. LUNGS: Show diminished breath sounds at base. ABDOMEN: Soft without rebound or guarding. The patient has some mild tenderness to palpation. EXTREMITIES: Negative for clubbing, cyanosis, no edema. DERMATOLOGIC: No rashes. MUSCULOSKELETAL: No joint effusions. NEUROLOGIC: No change in examination. LABORATORY DATA: Showed sodium 133, potassium 2.9, BUN 13, creatinine 0.79, magnesium 1.4. White c ount 19.6, hemoglobin 9.2, hematocrit 28.4, platelet count is 457. ASSESSMENT AND PLAN: 1. Nonoliguric acute kidney injury with previous baseline creatinine of 0.9 mg/dL. Etiology of acu te kidney injury is secondary to acute tubular necrosis. The patient is status post hemodialysis. The patient has shown excellent recovery. Continue current treatment plan, supportive care, renally dose all medicines. 2. Mineral bone disorder. Continue to monitor calcium and phosphorus levels. 3. Hypomagnesemia. Replete magnesium sulfate 2 grams IV x1. 4. Anemia. Continue to monitor hemoglobin and hematocrit levels. 5. Perforated gastric ulcer status post repair. 6. Sepsis, status post shock. The patient is completing antibiotic course. 7. Status post respiratory failure. 8. Status post encephalopathy. 9. Nutrition. The patient is on TPN, starting on soft mechanical diet. Continue to monitor. 10. History of polysubstance abuse. 11. Leukocytosis, likely reactive. Continue to monitor. Dictated By: SILVIA HERNANDEZ/TOMMY Conf#: [id number] DID#: [id number]
--- NOTE | 2016-08-30 10:04 | PN ---
DATE: Postoperative day #10. The patient has remained afebrile throughout. His abdominal pain continues unabated. His white count is still elevated at 19,000. OBJECTIVE: His abdominal examination is obese. The incision is clean. He has clear serous drainage through the KARISSA drain and mild serous drainage through the wound. CT drainage could not be performed yesterday because the patient was unable to lie on his abdomen for an hour. We will try to do the CT drainage with IV sedation. Dictated By: TIFFANI ALCANTAR/TOMMY Conf#: [id number] DID#: [id number] MTDD
[2016-08-30] MEDS: TPN 1,000 ML IV SCH (14:07)
--- NOTE | 2016-08-30 14:39 | PN ---
Date/Time of Note Date/Time of Note DATE: 08/30/16 TIME: 14:38 Assessment/Plan VTE Prophylaxis VTE Prophylaxis Intervention: SCD's Lines/Catheters IV Catheter Type (from Nrs): JAMES Urinary Cath still in place: Yes Reason Cath still needed: other (indicate) Assessment/Plan Chief Complaint/Hosp Course Chief Complaint/Hosp Course 1. Abdominal pain secondary to perforated gastric ulcer status post surgical repair Continue postsurgical care, diet as per surgery 2. Acute kidney injury Continue dialysis per nephrology, improving 3. Smoking history Advise smoking cessation 4. Substance abuse Toxicology is positive for amphetamines 5. SIRS reactive secondary to #1 Continue Zosyn, infectious disease physician has been consulted Follow-up CT of abdomen and pelvis with oral contrast 6. Resp Failure Extubated on 08/25/2016, continue breathing treatment Pulm on the case 7. Cul-de-sac fluid collection with possible abscess Interventional radiology consulted for CT-guided drainage Continue IV antibiotics 7. Hypokalemia, repleted We will continue monitor patient closely for recommendation management treatment as clinical course Prognosis good Continue TPN, advance diet as per surgery recommendation Problems: Subjective 24 Hr Interval Summary Free Text/Dictation Patient denies of any chest pain or shortness of breath Continues to complain of having minimal abdominal discomfort and back pain Difficulty with ambulation this morning secondary to lightheadedness Tolerating p.o. intake although has minimal p.o. intake Exam/Review of Systems Vital Signs Vitals Vital Signs Date Time Temp Pulse Resp B/P Pulse Ox O2 Delivery O2 Flow Rate FiO2 08/30/16 12:00 100 08/30/16 10:52 99.6 18 135/76 95 08/29/16 21:00 Nasal Cannula 3.0 08/29/16 15:47 21 Intake and Output 08/29/16 08/29/16 08/30/16 15:00 23:00 07:00 Intake Total 1340 ml 750 ml Output Total 775 ml 800 ml 900 ml Balance -775 ml 540 ml -150 ml Exam General: The patient is well-developed, Not in acute distress. HEENT: Atraumatic, normocephalic. The pupils are equal and round . Neck: Supple with full range of motion. Chest: Normal expansion of the thorax during inspiration Lungs: Clear to auscultation bilaterally Heart: Normal S1-S2, Regular rhythm and rate. Abdomen: Soft , nontender, nondistended , bowel sounds are present. Surgical site is dry and clean, drain in place Extremities: Normal to inspection, no edema no cyanosis Neurologic: Normal mental status,The patient is awake, alert and oriented . Results Result Diagram: 08/30/16 0500 08/30/16 0600 Results 24 hrs Laboratory Tests Test 08/30/16 05:00 08/30/16 06:00 White Blood Count 19.6 H Red Blood Count 3.09 L Hemoglobin 9.2 L Hematocrit 28.4 L Mean Corpuscular Volume 91.9 Mean Corpuscular Hemoglobin 29.8 Mean Corpuscular Hemoglobin Concent 32.4 Red Cell Distribution Width 13.8 Platelet Count 457 H Mean Platelet Volume 9.0 Neutrophils % 76.3 Lymphocytes % 11.1 L Monocytes % 9.3 Eosinophils % 1.5 Basophils % 0.3 Nucleated Red Blood Cells % 0.0 Neutrophils # 14.9 H Lymphocytes # 2.2 Monocytes # 1.8 H Eosinophils # 0.3 Basophils # 0.1 Nucleated Red Blood Cells # 0.0 Sodium Level 133 L Potassium Level 3.9 Chloride Level 101 Carbon Dioxide Level 26 Anion Gap 10 Blood Urea Nitrogen 13 Creatinine 0.79 Glucose Level 107 Calcium Level 7.2 L Magnesium Level 1.4 L Medications Medications Current Medications IV Flush (NS 10 ml) 10 ml PRN PRN IV IV PROTOCOL; Start 08/20/16 at 19:30 Ondansetron HCl (Zofran Inj) 4 mg Q6H PRN IV NAUSEA; Start 08/20/16 at 21:30 Pantoprazole 40 mg 40 mg BID@06,18 IV Last administered on 08/30/16 05:15; Admin Dose 40 MG; Start 08/21/16 at 06:00 Potassium Chloride 30 meq/ Dextrose 1,015 ml @ 10 mls/hr Q24H IV Last administered on 08/28/16 11:13; Admin Dose 10 MLS/HR; Start 08/25/16 at 09:00 Acetaminophen (Ofirmev 1000mg/ 100ml Iv) 100 ml @ 400 mls/hr Q6H PRN IVPB PAIN LEVEL 1-3 Last administered on 08/28/16 20:11; Admin Dose 400 MLS/HR; Start 08/25/16 at 10:30 Lorazepam (Ativan) 0.5 mg Q8H PRN IV AGITATION/ANXIETY; Start 08/25/16 at 13:00 Morphine Sulfate (morphine) 1 mg Q3H PRN IV PAIN LEVEL 4-7 Last administered on 08/29/16 09:51; Admin Dose 1 MG; Start 08/25/16 at 13:00 Morphine Sulfate 2 mg 2 mg Q3H PRN IV PAIN LEVEL 7-10 Last administered on 08/29 19:58; Admin Dose 2 MG; Start 08/25/16 at 13:00 Total Parenteral Nutrition 1,000 ml @ 40 mls/hr Q24H IV Last administered on 23:41; Admin Dose 40 MLS/HR; Start 08/25/16 at 15:00 Piperacillin Sod/ Tazobactam Sod (Zosyn 3.375gm/ 100 ml (Pmx)) 100 ml @ 200 mls /hr Q8 IVPB Last administered on 08/30/16 13:50; Admin Dose 200 MLS/HR; Start 08/26/16 at 14:00 Oxycodone/ Acetaminophen (Percocet (5/ 325)) 2 tab Q6H PRN PO PAIN Last administered on 08/30/16 09:12; Admin Dose 2 TAB; Start 08/28/16 at 01:07 NAREN BURDEN MD Aug 30, 2016 14:39
--- NOTE | 2016-08-30 19:11 | CONS ---
Date/Time of Note Date/Time of Note DATE: 08/30/16 TIME: 19:08 Assessment/Plan Assessment/Plan Chief Complaint/Hosp Course ID PROGRESS NOTE TOTAL ABX DAY # 12 =>Zosyn POD #10 => WBC elevated, no fevers 24H INTERVAL SUMMARY * Doing OK -> CT guided drainage aborted 2/2 inability to lay flat w/plan to repeat attempt w/sedation * (+)ongoing ABD pain w/distended ABD, No fevers, on TPN * 08/28/16 CT ABD/Pelvis: IMPRESSION:Persistent discrete fluid collections pelvis. Abscess cannot be ruled out. This collection is amendable to CT guided drainage if clinically indicated.Status post laparotomy with presumed postsurgical pneumoperitoneum. Small volume ascites.Small pleural effusions with bibasilar atelectasis. Visible but nonpathologically enlarged rome pancreatic and celiac nodes. MICRO REVIEWED Pio: 08/20/16 Rcvd: 08/20/16 Source: PERITONEAL Sp Descrip: Microbiology GRAM STAIN Final POLYMORPH. LEUKOCYTE 2+ GRAM POS COCCI IN PAIRS 2+ BODY FLUID CULTURE Final Organism 1 ALPHA HEMOLYTIC STREP SPP QUANTITY 2+ . VIRIDANS GROUP Organism 2 STREP AGALACTIAE - (GROUP B) QUANTITY 1+ ALPHA HEMO M.I.C. RX --------- --- CEFOTAXIME 0.004 S PENICILLIN 0.004 S VANCOMYCIN <=0.5 S ALPHA HEMO S AGA(GR B Zone Size RX Zone Size RX --------- --- --------- --- * AMPICILLIN S * CEFAZOLIN S * CEFOTAXIME S * CEFUROXIME S * CLINDAMYCIN S R * ERYTHROMYCIN S R Pio: 08/21/16-1526 Rcvd: 08/21/16-1538 Source: ENDOTRACHE Sp Descrip: Procedure Result Microbiology GRAM STAIN Final POLYMORPH. LEUKOCYTE NONE SEEN EPITHELIAL CELLS NONE SEEN RESPIRATORY CULTURE Final Organism 1 STAPHYLOCOCCUS AUREUS QUANTITY RARE S AUREUS M.I.C. RX --------- --- CEFAZOLIN S CIPROFLOXACIN <=0.5 S CLINDAMYCIN <=0.25 S DOXYCYCLINE S ERYTHROMYCIN <=0.25 S LEVOFLOXACIN 0.25 S OXACILLIN <=0.25 S PENICILLIN-G >=0.5 R RIFAMPIN <=0.5 S VANCOMYCIN <=0.5 S TRIMETHOPRIM/SULFAMETHOXAZOLE <=10 S PHYSICAL EXAMINATION: GENERAL: VSS, NAD HEENT: Unremarkable NECK: Trach midline CHEST: Equal chest rise bilaterally, without dyspnea on observation HEART: Pulse RRR ABDOMEN: Soft/peg EXTREMITIES: Warm SKIN: See hard chart skin assessment ID ASSESSMENT: 36 yo M w/PMHx ETOH, Tobacco, MJ use admit with: 1. Status post perforated peptic ulcer repair, exploratory laparotomy on 2016. 2. Persistent ABD pain w/distension => Rule out post-op intra-ABD abscess versus seroma post-op * Clear serous fluid draining from wound 3. SIRS w/rising WBC, no fevers, VSS 4. Bilateral pleural effusions w/resolving VAP -> Sputum (+)KEARA via ETT on 5. Mild diverticulosis of the sigmoid colon. 6. Status post postoperative respiratory failure and renal failure. (-)MRSA Nares INVASIVES: PIV ABX ALLERGY: KNDA CURRENT ABX: Zosyn #11 ID RECOMMENDATIONS: 1. Continue Zosyn * Rx Heating Pad - may assist w/some ABD pain due to gas trapping * Watch for opportunistic infx on Zosyn such as Yeast & C.Diff 2. PLAN PER NOTES: CT guided drainage aborted / inability to lay flat w/plan to repeat attempt w/sedation . . Problems: Consultation Date/Type/Reason Admit Date/Time Aug 19, 2016 at 18:21 Initial Consult Date 08/21/16 Type of Consultation: ID Exam/Review of Systems Vital Signs Vitals Vital Signs Date Time Temp Pulse Resp B/P Pulse Ox O2 Delivery O2 Flow Rate FiO2 08/30/16 16:00 93 08/30/16 15:02 98.0 18 128/78 99 08/29/16 21:00 Nasal Cannula 3.0 08/29/16 15:47 21 Intake and Output 08/29/16 08/29/16 08/30/16 15:00 23:00 07:00 Intake Total 1340 ml 750 ml Output Total 775 ml 800 ml 900 ml Balance -775 ml 540 ml -150 ml Results Result Diagram: 08/30/16 0500 08/30/16 0600 Results 24 hrs Laboratory Tests Test 08/30/16 05:00 08/30/16 06:00 White Blood Count 19.6 H Red Blood Count 3.09 L Hemoglobin 9.2 L Hematocrit 28.4 L Mean Corpuscular Volume 91.9 Mean Corpuscular Hemoglobin 29.8 Mean Corpuscular Hemoglobin Concent 32.4 Red Cell Distribution Width 13.8 Platelet Count 457 H Mean Platelet Volume 9.0 Neutrophils % 76.3 Lymphocytes % 11.1 L Monocytes % 9.3 Eosinophils % 1.5 Basophils % 0.3 Nucleated Red Blood Cells % 0.0 Neutrophils # 14.9 H Lymphocytes # 2.2 Monocytes # 1.8 H Eosinophils # 0.3 Basophils # 0.1 Nucleated Red Blood Cells # 0.0 Sodium Level 133 L Potassium Level 3.9 Chloride Level 101 Carbon Dioxide Level 26 Anion Gap 10 Blood Urea Nitrogen 13 Creatinine 0.79 Glucose Level 107 Calcium Level 7.2 L Magnesium Level 1.4 L Medications Medications Current Medications IV Flush (NS 10 ml) 10 ml PRN PRN IV IV PROTOCOL; Start 08/20/16 at 19:30 Ondansetron HCl (Zofran Inj) 4 mg Q6H PRN IV NAUSEA; Start 08/20/16 at 21:30 Pantoprazole 40 mg 40 mg BID@06,18 IV Last administered on 08/30/16 17:47; Admin Dose 40 MG; Start 08/21/16 at 06:00 Potassium Chloride 30 meq/ Dextrose 1,015 ml @ 10 mls/hr Q24H IV Last administered on 08/28/16 11:13; Admin Dose 10 MLS/HR; Start 08/25/16 at 09:00 Acetaminophen (Ofirmev 1000mg/ 100ml Iv) 100 ml @ 400 mls/hr Q6H PRN IVPB PAIN LEVEL 1-3 Last administered on 08/28/16 20:11; Admin Dose 400 MLS/HR; Start 08/25/16 at 10:30 Lorazepam (Ativan) 0.5 mg Q8H PRN IV AGITATION/ANXIETY; Start 08/25/16 at 13:00 Morphine Sulfate (morphine) 1 mg Q3H PRN IV PAIN LEVEL 4-7 Last administered on 08/29/16 09:51; Admin Dose 1 MG; Start 08/25/16 at 13:00 Morphine Sulfate 2 mg 2 mg Q3H PRN IV PAIN LEVEL 7-10 Last administered on 08/29 19:58; Admin Dose 2 MG; Start 08/25/16 at 13:00 Total Parenteral Nutrition 1,000 ml @ 40 mls/hr Q24H IV Last administered on 23:41; Admin Dose 40 MLS/HR; Start 08/25/16 at 15:00 Piperacillin Sod/ Tazobactam Sod (Zosyn 3.375gm/ 100 ml (Pmx)) 100 ml @ 200 mls /hr Q8 IVPB Last administered on 08/30/16 13:50; Admin Dose 200 MLS/HR; Start 08/26/16 at 14:00 Oxycodone/ Acetaminophen (Percocet (5/ 325)) 2 tab Q6H PRN PO PAIN Last administered on 08/30/16 09:12; Admin Dose 2 TAB; Start 08/28/16 at 01:07 BRE LI NP Aug 30, 2016 19:11
[2016-08-30] MEDS: morphine 2 MG INJ IV PRN (20:20)
[2016-08-31] VITALS (21 sets, daily range): BP systolic 102–134; BP diastolic 51–77; PULSE 80–99; RESP 16–32
[2016-08-31] MEDS: TPN 1,000 ML IV SCH (02:56)
[2016-08-31] MEDS: PANTOPRAZOLE 40 MG INJ IV SCH ×2 (05:28→17:26)
[2016-08-31] MEDS: PIPER-TAZO 3.375 GM IV (PMX) 100 ML IVPB SCH ×3 (05:28→21:52)
[2016-08-31 06:03] LABS: ADD SCAN DIFF NO
[2016-08-31 06:41] LABS: POTASSIUM 3.9 mmol/L (3.5-5.1)
[2016-08-31 06:44] LABS: CREATININE 0.68 mg/dl (0.61-1.24)
[2016-08-31 06:45] LABS: CALCIUM 7.4 mg/dl (8.4-10.2)
[2016-08-31 06:47] LABS: ABNORMAL IP MESSAGE 1; BASOPHIL # 0.1 10^3/ul (0.0-0.1); BASOPHILS % 0.3 % (0.0-2.0); EOSINOPHILS # 0.3 10^3/ul (0.0-0.5); EOSINOPHILS % 1.6 % (0.0-7.0); HEMATOCRIT 28.6 % (42.0-52.0); HEMOGLOBIN 9.3 g/dl (14.0-18.0); LYMPHOCYTES # 2.5 10^3/ul (0.8-2.9); LYMPHOCYTES % 14.1 % (15.0-51.0); MEAN CORPUSCULAR HEMOGLOBIN 29.6 pg (29.0-33.0); MEAN CORPUSCULAR HGB CONC 32.5 g/dl (32.0-37.0); MEAN CORPUSCULAR VOLUME 91.1 fl (82.0-101.0); MEAN PLATELET VOLUME 8.9 fl (7.4-10.4); MONOCYTE # 1.6 10^3/ul (0.3-0.9); MONOCYTES % 9.1 % (0.0-11.0); NEUTROPHIL # 13.2 10^3/ul (1.6-7.5); NEUTROPHILS % 73.3 % (39.0-77.0); PLATELET COUNT 453 10^3/UL (140-415); RED BLOOD COUNT 3.14 10^6/ul (4.70-6.10); RED CELL DISTRIBUTION WIDTH 13.4 % (11.5-14.5)
[2016-08-31] MEDS: morphine 2 MG INJ IV PRN ×3 (08:57→16:11)
[2016-08-31] MEDS: POTASSIUM CHLORIDE 30 MEQ in DEXTROSE 5% 1,000 ML IV SCH (08:58)
[2016-08-31] MEDS ORDERED: FENTAnyl 50 MCG/ML VIAL ONE ×2 (09:38)
[2016-08-31] MEDS ORDERED: SOD CHLORIDE 0.9% 500 ML ONE (09:38)
[2016-08-31] MEDS ORDERED: MIDAZOLAM 1 MG/ML 2 ML INJ ONE (09:38)
[2016-08-31] MEDS ORDERED: LIDOCAINE 1% (MDV) 20 ML INJ ONE (09:38)
--- NOTE | 2016-08-31 10:46 | PN ---
DATE: 08/31/2016 SUBJECTIVE: The patient is scheduled for CT-guided drainage of the possible abdominal abscess. No other events noted. OBJECTIVE: VITAL SIGNS: Blood pressure 122/71, respiration 18, pulse 84, temperature 98.6. HEENT: Head is normocephalic. NECK: Supple. HEART: Regular rate. LUNGS: Show diminished breath sounds at base. ABDOMEN: Soft and mild tenderness to palpation. EXTREMITIES: Negative for clubbing, cyanosis, edema. DERMATOLOGIC: No rashes. MUSCULOSKELETAL: No joint effusions. NEUROLOGIC: No change in exam. MEDICATIONS: The patient's medications have been reviewed. LABORATORY DATA: Shows sodium 132, potassium , chloride 102, BUN 11, creatinine 0.68. White c ount 18.0, hemoglobin 9.3, hematocrit 28.6, platelet count is 453. ASSESSMENT AND PLAN: 1. Nonoliguric acute kidney injury on top of chronic kidney disease with baseline creatinine of 0.9 mg/dL. Etiology of acute kidney injury is secondary to acute tubular necrosis. Renal function has improved. Continue current treatment plan, supportive care, renally dose all meds. 2. Hyponatremia, etiology is multifactorial secondary to positive, likely transient SIADH in conjun ction with hypertonic fluids. We will speak with pharmacy to adjust TPN dose. Continue to monitor. Continue free water restriction. 3. Mineral bone disorder, continue to monitor calcium and phosphorus levels. 4. Hypomagnesemia, status post repletion. 5. Anemia. Continue to monitor hemoglobin and hematocrit levels. 6. Perforated gastric ulcer status post repair. 7. Sepsis, status post shock. The patient is completing antibiotic course. 8. Possible abdominal abscess. The patient is scheduled for CT-guided drainage. Continue antibiot ics. 9. Nutrition. The patient is on TPN soft mechanical diet. 10. Leukocytosis, possibly related to abdominal abscess. Continue to monitor. Continue treatment plan. 11. History of polysubstance abuse. Dictated By: SILVIA HERNANDEZ/TOMMY Conf#: [id number] DID#: [id number]
--- NOTE | 2016-08-31 10:49 | PN ---
DATE: Postoperative day #11. The patient remains afebrile throughout. He still has some moderate abdominal pain; however, his ab dominal examination remains benign. His KARISSA drainage is serous. LABORATORIES: His white count has come down slightly to 18,000. PLAN: We will attempt to follow up with CT drainage today. Continue medical management. Dictated By: TIFFANI ALCANTAR/TOMMY Conf#: [id number] DID#: [id number]
--- NOTE | 2016-08-31 12:41 | CONS ---
Date/Time of Note Date/Time of Note DATE: 08/31/16 TIME: 12:40 Assessment/Plan Assessment/Plan Chief Complaint/Hosp Course SUBJECTIVE: No acute changes. No fevers. MICROBIOLOGY: Peritoneal fluid culture on admission grew alpha hemolytic strep species and Streptococcus agalactiae group B. Endotracheal aspirate grew Staphylococcus aureus. ANTIMICROBIALS: Zosyn. DIAGNOSTICS: CT of the abdomen and pelvis revealed fluid in the cul-de-sac measuring 5.5 x 7.7 cm with mild diverticulosis of the sigmoid colon. INDWELLINGS: The patient has PICC line and Miranda catheter. PHYSICAL EXAMINATION: GENERAL: Well-developed, well-nourished, middle-aged man who is alert , in no distress. HEENT: Head atraumatic, normocephalic. Sclerae anicteric. Buccal mucosa pink. NECK: Supple. CHEST: Rise symmetrical. Breath sounds clear. HEART: S1, S2. ABDOMEN: Soft, bowel sounds present. EXTREMITIES: Without cyanosis. ASSESSMENT: 1. Status post perforated peptic ulcer repair, exploratory laparotomy on 2016. 2. Persistent leukocytosis with evidence of fluid in the cul-de-sac. Rule out abscess versus seroma. 3. Status post postoperative respiratory failure and renal failure. 4. History of substance abuse. PLAN: The patient remains stable, covered with appropriate antibiotics. Surgery on case. Pending CT guided fluid aspiration [facility] staff Problems: Consultation Date/Type/Reason Admit Date/Time Aug 19, 2016 at 18:21 Initial Consult Date 08/21/16 Type of Consultation: ID Exam/Review of Systems Vital Signs Vitals Vital Signs Date Time Temp Pulse Resp B/P Pulse Ox O2 Delivery O2 Flow Rate FiO2 08/31/16 12:34 93 08/31/16 11:57 98.0 18 126/69 100 08/30/16 19:37 Nasal Cannula 3.0 08/29/16 15:47 21 Intake and Output 08/30/16 08/30/16 08/31/16 15:00 23:00 07:00 Intake Total 1180 ml 1915 ml Output Total 350 ml 1200 ml Balance 830 ml 715 ml Results Result Diagram: 08/31/16 0525 08/31/16 0525 Results 24 hrs Laboratory Tests Test 08/31/16 05:25 White Blood Count 18.0 H Red Blood Count 3.14 L Hemoglobin 9.3 L Hematocrit 28.6 L Mean Corpuscular Volume 91.1 Mean Corpuscular Hemoglobin 29.6 Mean Corpuscular Hemoglobin Concent 32.5 Red Cell Distribution Width 13.4 Platelet Count 453 H Mean Platelet Volume 8.9 Neutrophils % 73.3 Lymphocytes % 14.1 L Monocytes % 9.1 Eosinophils % 1.6 Basophils % 0.3 Nucleated Red Blood Cells % 0.0 Neutrophils # 13.2 H Lymphocytes # 2.5 Monocytes # 1.6 H Eosinophils # 0.3 Basophils # 0.1 Nucleated Red Blood Cells # 0.0 Sodium Level 132 L Potassium Level 3.9 Chloride Level 102 Carbon Dioxide Level 27 Anion Gap 7 L Blood Urea Nitrogen 11 Creatinine 0.68 Glucose Level 102 Calcium Level 7.4 L Medications Medications Current Medications IV Flush (NS 10 ml) 10 ml PRN PRN IV IV PROTOCOL; Start 08/20/16 at 19:30 Ondansetron HCl (Zofran Inj) 4 mg Q6H PRN IV NAUSEA; Start 08/20/16 at 21:30 Pantoprazole 40 mg 40 mg BID@06,18 IV Last administered on 08/31/16 05:28; Admin Dose 40 MG; Start 08/21/16 at 06:00 Potassium Chloride 30 meq/ Dextrose 1,015 ml @ 10 mls/hr Q24H IV Last administered on 08/28/16 11:13; Admin Dose 10 MLS/HR; Start 08/25/16 at 09:00 Acetaminophen (Ofirmev 1000mg/ 100ml Iv) 100 ml @ 400 mls/hr Q6H PRN IVPB PAIN LEVEL 1-3 Last administered on 08/28/16 20:11; Admin Dose 400 MLS/HR; Start 08/25/16 at 10:30 Lorazepam (Ativan) 0.5 mg Q8H PRN IV AGITATION/ANXIETY; Start 08/25/16 at 13:00 Morphine Sulfate (morphine) 1 mg Q3H PRN IV PAIN LEVEL 4-7 Last administered on 08/29/16 09:51; Admin Dose 1 MG; Start 08/25/16 at 13:00 Morphine Sulfate 2 mg 2 mg Q3H PRN IV PAIN LEVEL 7-10 Last administered on 08/31 08:57; Admin Dose 2 MG; Start 08/25/16 at 13:00 Total Parenteral Nutrition 1,000 ml @ 40 mls/hr Q24H IV Last administered on 02:56; Admin Dose 40 MLS/HR; Start 08/25/16 at 15:00 Piperacillin Sod/ Tazobactam Sod (Zosyn 3.375gm/ 100 ml (Pmx)) 100 ml @ 200 mls /hr Q8 IVPB Last administered on 08/31/16 05:28; Admin Dose 200 MLS/HR; Start 08/26/16 at 14:00 Oxycodone/ Acetaminophen (Percocet (5/ 325)) 2 tab Q6H PRN PO PAIN Last administered on 08/30/16 23:41; Admin Dose 2 TAB; Start 08/28/16 at 01:07 DIEGO CHEW NP Aug 31, 2016 12:41
--- NOTE | 2016-08-31 14:18 | RADRPT ---
PROCEDURE: CT guided pelvic abscess drainage. CLINICAL INDICATION: Pelvic pain. Postop. TECHNIQUE: Informed consent was obtained. The procedure, risks, benefits, complications and alternatives were explained to the patient. Risks including bleeding and infection were explained. The patient underst ood and was willing to proceed. A procedural pause was performed. The patient's name, date of , and procedure to be performed were verified. One or more of the following dose reduction techniq ues were used: Automated exposure control, adjustment of the mA and/or kV according to patient size, use of iterative reconstruction technique. Using local anesthetic, sterile technique and CT guidance, a 19-gauge Yueh needle was advanced into the fluid collection in the cul-de-sac. CT scan was performed confirming position. Purulent fluid was also aspirated confirming position. The needle from the Yueh catheter was removed, leaving the Yueh catheter in place within the fluid collection. A 0.035-inch Amplatz guidewire was advanced thr ough the Yueh catheter into the fluid collection. The Yueh catheter was removed. The tract was dil ated to 8-Serbian. An 8.5 Serbian multipurpose drainage catheter was advanced over the guidewire into the fluid collection. The guidewire was removed. Additional scanning was performed confirming pos ition. The catheter was then sutured to the patient's skin with 2-0 silk. Approximately 207 ml of purulent fluid was aspirated. The catheter was connected to a drainage bag. A dressing was applied . The patient tolerated procedure well. COMPARISON: None. FINDINGS: Final images demonstrate the drainage catheter in satisfactory position within the fluid collection. IMPRESSION: 1. Successful CT guided pelvic abscess drainage. RPTAT: QQ .Amrik Polk MD, Date Time Electronically viewed and signed by .Amrik Polk MD, MD on 08/31/2016 14:18 .R/
--- NOTE | 2016-08-31 14:27 | PN ---
Date/Time of Note Date/Time of Note DATE: 08/31/16 TIME: 14:23 Assessment/Plan VTE Prophylaxis VTE Prophylaxis Intervention: SCD's Lines/Catheters IV [facility] PICC Line Central line still needed: Yes Urinary Cath still in place: No Assessment/Plan Chief Complaint/Hosp Course Chief Complaint/Hosp Course 1. Abdominal pain secondary to perforated gastric ulcer status post surgical repair Continue postsurgical care, diet as per surgery 2. Acute kidney injury Continue dialysis per nephrology, improving 3. Smoking history Advise smoking cessation 4. Substance abuse Toxicology is positive for amphetamines 5. SIRS reactive secondary to #1 Continue Zosyn, infectious disease physician has been consulted Follow-up CT of abdomen and pelvis with oral contrast 6. Resp Failure Extubated on 08/25/2016, continue breathing treatment Pulm on the case 7. Cul-de-sac fluid collection with possible abscess Status post successful CT guided pelvic abscess drainage and approximately 207 ml of purulent fluid was aspirated. Continue to monitor the drainage bag. Continue IV antibiotics 7. Hypokalemia, repleted We will continue monitor patient closely for recommendation management treatment as clinical course Prognosis good Continue TPN, advance diet as per surgery recommendation Problems: Subjective 24 Hr Interval Summary Free Text/Dictation Patient denies of any chest pain shortness of breath Minimal abdominal discomfort No nausea vomiting or diarrhea Exam/Review of Systems Vital Signs Vitals Vital Signs Date Time Temp Pulse Resp B/P Pulse Ox O2 Delivery O2 Flow Rate FiO2 08/31/16 12:34 93 08/31/16 11:57 98.0 18 126/69 100 08/31/16 11:00 Nasal Cannula 2.0 08/29/16 15:47 21 Intake and Output 08/30/16 08/30/16 08/31/16 15:00 23:00 07:00 Intake Total 1180 ml 1915 ml Output Total 350 ml 1200 ml Balance 830 ml 715 ml Exam General: The patient is well-developed, Not in acute distress. HEENT: Atraumatic, normocephalic. The pupils are equal and round . Neck: Supple with full range of motion. Chest: Normal expansion of the thorax during inspiration Lungs: Clear to auscultation bilaterally Heart: Normal S1-S2, Regular rhythm and rate. Abdomen: Soft , nontender, nondistended , bowel sounds are present. Surgical site is dry and clean, KARISSA tube in place, drain in place Extremities: Normal to inspection, no edema no cyanosis Neurologic: Normal mental status,The patient is awake, alert and oriented . Results Result Diagram: 08/31/1652408/31/16524 Results 24 hrs Laboratory Tests Test 08/31/16 05:25 White Blood Count 18.0 H Red Blood Count 3.14 L Hemoglobin 9.3 L Hematocrit 28.6 L Mean Corpuscular Volume 91.1 Mean Corpuscular Hemoglobin 29.6 Mean Corpuscular Hemoglobin Concent 32.5 Red Cell Distribution Width 13.4 Platelet Count 453 H Mean Platelet Volume 8.9 Neutrophils % 73.3 Lymphocytes % 14.1 L Monocytes % 9.1 Eosinophils % 1.6 Basophils % 0.3 Nucleated Red Blood Cells % 0.0 Neutrophils # 13.2 H Lymphocytes # 2.5 Monocytes # 1.6 H Eosinophils # 0.3 Basophils # 0.1 Nucleated Red Blood Cells # 0.0 Sodium Level 132 L Potassium Level 3.9 Chloride Level 102 Carbon Dioxide Level 27 Anion Gap 7 L Blood Urea Nitrogen 11 Creatinine 0.68 Glucose Level 102 Calcium Level 7.4 L Medications Medications Current Medications IV Flush (NS 10 ml) 10 ml PRN PRN IV IV PROTOCOL; Start 08/20/16 at 19:30 Ondansetron HCl (Zofran Inj) 4 mg Q6H PRN IV NAUSEA; Start 08/20/16 at 21:30 Pantoprazole 40 mg 40 mg BID@06,18 IV Last administered on 08/31/16 05:28; Admin Dose 40 MG; Start 08/21/16 at 06:00 Potassium Chloride 30 meq/ Dextrose 1,015 ml @ 10 mls/hr Q24H IV Last administered on 08/28/16 11:13; Admin Dose 10 MLS/HR; Start 08/25/16 at 09:00 Acetaminophen (Ofirmev 1000mg/ 100ml Iv) 100 ml @ 400 mls/hr Q6H PRN IVPB PAIN LEVEL 1-3 Last administered on 08/28/16 20:11; Admin Dose 400 MLS/HR; Start 08/25/16 at 10:30 Lorazepam (Ativan) 0.5 mg Q8H PRN IV AGITATION/ANXIETY; Start 08/25/16 at 13:00 Morphine Sulfate (morphine) 1 mg Q3H PRN IV PAIN LEVEL 4-7 Last administered on 08/29/16 09:51; Admin Dose 1 MG; Start 08/25/16 at 13:00 Morphine Sulfate 2 mg 2 mg Q3H PRN IV PAIN LEVEL 7-10 Last administered on 08/31 13:03; Admin Dose 2 MG; Start 08/25/16 at 13:00 Total Parenteral Nutrition 1,000 ml @ 40 mls/hr Q24H IV Last administered on 02:56; Admin Dose 40 MLS/HR; Start 08/25/16 at 15:00 Piperacillin Sod/ Tazobactam Sod (Zosyn 3.375gm/ 100 ml (Pmx)) 100 ml @ 200 mls /hr Q8 IVPB Last administered on 08/31/16 13:03; Admin Dose 200 MLS/HR; Start 08/26/16 at 14:00 Oxycodone/ Acetaminophen (Percocet (5/ 325)) 2 tab Q6H PRN PO PAIN Last administered on 08/30/16 23:41; Admin Dose 2 TAB; Start 08/28/16 at 01:07 NAREN BURDEN MD Aug 31, 2016 14:27
[2016-08-31] MEDS ORDERED: ALTEPLASE (CATHFLO) 2 MG INJ CATHETER ONE ×2 (18:30→21:30)
[2016-08-31] MEDS: OXYCODONE/ACETAMINOPHEN (5/325) TAB PO PRN (18:59)
[2016-08-31] MEDS: PHENAZOPYRIDINE 100 MG TAB PO SCH (23:12)
[2016-09-01] MEDS: morphine 2 MG INJ IV PRN (01:42)
[2016-09-01] MEDS: PANTOPRAZOLE 40 MG INJ IV SCH ×2 (05:52→18:21)
[2016-09-01] MEDS: PIPER-TAZO 3.375 GM IV (PMX) 100 ML IVPB SCH ×3 (05:52→22:23)
[2016-09-01 06:04] LABS: ADD SCAN DIFF NO
[2016-09-01 06:25] LABS: BASOPHILS % 0.3 % (0.0-2.0); EOSINOPHILS # 0.2 10^3/ul (0.0-0.5); EOSINOPHILS % 1.7 % (0.0-7.0); HEMATOCRIT 25.5 % (42.0-52.0); HEMOGLOBIN 8.4 g/dl (14.0-18.0); LYMPHOCYTES # 1.8 10^3/ul (0.8-2.9); LYMPHOCYTES % 12.4 % (15.0-51.0); MEAN CORPUSCULAR HEMOGLOBIN 29.4 pg (29.0-33.0); MEAN CORPUSCULAR HGB CONC 32.9 g/dl (32.0-37.0); MEAN CORPUSCULAR VOLUME 89.2 fl (82.0-101.0); MEAN PLATELET VOLUME 8.6 fl (7.4-10.4); MONOCYTE # 1.3 10^3/ul (0.3-0.9); MONOCYTES % 9.1 % (0.0-11.0); NEUTROPHIL # 10.7 10^3/ul (1.6-7.5); NEUTROPHILS % 75.4 % (39.0-77.0); PLATELET COUNT 448 10^3/UL (140-415); RED BLOOD COUNT 2.86 10^6/ul (4.70-6.10); RED CELL DISTRIBUTION WIDTH 13.1 % (11.5-14.5); WHITE BLOOD COUNT 14.1 10^3/ul (4.8-10.8)
[2016-09-01 07:12] LABS: MAGNESIUM 1.5 mg/dl (1.7-2.5); PHOSPHORUS 3.1 mg/dl (2.5-4.9)
[2016-09-01 08:00] VITALS: BP 114/69; RESP 18
[2016-09-01 08:47] LABS: POTASSIUM 3.8 mmol/L (3.5-5.1)
[2016-09-01 08:49] LABS: CREATININE 0.7 mg/dl (0.61-1.24)
[2016-09-01 08:50] LABS: CALCIUM 7.6 mg/dl (8.4-10.2)
[2016-09-01] MEDS: PHENAZOPYRIDINE 100 MG TAB PO SCH ×3 (09:45→20:50)
[2016-09-01] MEDS ORDERED: MAGNESIUM SULFATE 2 GM/50 ML 50 ML IVPB ONE (10:30)
--- NOTE | 2016-09-01 12:23 | PN ---
DATE: 09/01/2016 SUBJECTIVE: The patient yesterday had his abdominal abscess drained, tolerated it well. No other e vents noted. OBJECTIVE: VITAL SIGNS: Blood pressure is 114/69, respirations 18, pulse 94, temperature 97.9. HEENT: Head is normocephalic. NECK: Supple. HEART: Regular rate. LUNGS: Show diminished breath sounds at the bases. ABDOMEN: Soft. Mild tenderness to palpation. Positive dressing. EXTREMITIES: Negative for clubbing, cyanosis. No edema. DERMATOLOGIC: No rashes. MUSCULOSKELETAL: No joint effusions. NEUROLOGIC: No change in exam. LABORATORY DATA: Shows sodium 132, potassium .8, chloride 102, BUN 10, creatinine 0.70, magnes ium 1.5. ASSESSMENT AND PLAN: 1. Nonoliguric acute kidney injury on top of chronic kidney disease with a previous baseline creati nine of 0.9 mg/dL. Etiology of acute kidney injury is secondary to acute tubular necrosis. Renal f unction is improved. Continue current treatment plan, supportive care, renally dose all meds. 2. Hyponatremia. Etiology is multifactorial secondary to transient SIADH in conjunction with hyper tonic fluids. We will discontinue D5W. Monitor closely on TPN. 3. Hypomagnesemia. We will replete with magnesium sulfate. 4. Mineral bone disorder. Continue to monitor calcium and phosphorus levels. 5. Anemia. Continue to monitor hemoglobin and hematocrit levels. 6. Sepsis status post shock. 7. Perforated gastric ulcer, status post repair. 8. Abdominal abscess, status post drainage. Continue antibiotic therapy. 9. Nutrition. The patient is on TPN. 10. History of prior substance abuse. Dictated By: SILVIA HERNANDEZ/TOMMY Conf#: [id number] DID#: [id number]
--- NOTE | 2016-09-01 12:38 | PN ---
DATE: 09/01/2016 Postoperative day #12. SUBJECTIVE: The patient is markedly symptomatically improved status post CT drainage yesterday. A to amelie of 207 mL of pus was aspirated and drained and a drainage catheter was placed. His abdominal examination is benign. He has full p.o. tolerance. The KARISSA drain is still putting out moderate amount of serous fluid. LABORATORY DATA: The patient's hematocrit is down to 25.5. White count is down to 14,100. PLAN: Discontinue TPN. Continue medical management. We will likely remove KARISSA drain tomorrow. Dictated By: TIFFANI ALCANTAR/TOMMY Conf#: [id number] DID#: [id number]
--- NOTE | 2016-09-01 13:07 | CONS ---
Date/Time of Note Date/Time of Note DATE: 09/01/16 TIME: 13:05 Assessment/Plan Assessment/Plan Chief Complaint/Hosp Course SUBJECTIVE: No acute changes. awake, feels better. No fevers. MICROBIOLOGY: Peritoneal fluid culture on admission grew alpha hemolytic strep species and Streptococcus agalactiae group B. Endotracheal aspirate grew Staphylococcus aureus. ANTIMICROBIALS: Zosyn. INDWELLINGS: The patient has PICC, abd drainage catheter PHYSICAL EXAMINATION: GENERAL: Well-developed, well-nourished, middle-aged man who is alert , in no distress. HEENT: Head atraumatic, normocephalic. Sclerae anicteric. Buccal mucosa pink. NECK: Supple. CHEST: Rise symmetrical. Breath sounds clear. HEART: S1, S2. ABDOMEN: Soft, bowel sounds present. EXTREMITIES: Without cyanosis. ASSESSMENT: 1. Status post perforated peptic ulcer repair, exploratory laparotomy on 2016. 2. Persistent leukocytosis 2 to intra-abdominal abscess, s/p CT guided aspiration 3. Status post postoperative respiratory failure and renal failure. 4. History of substance abuse. PLAN: The patient remains stable, wbc decreasing, continue abx, f/u fluid cx [facility] staff Problems: Consultation Date/Type/Reason Admit Date/Time Aug 19, 2016 at 18:21 Initial Consult Date 08/21/16 Type of Consultation: ID Exam/Review of Systems Vital Signs Vitals Vital Signs Date Time Temp Pulse Resp B/P Pulse Ox O2 Delivery O2 Flow Rate FiO2 09/01/16 08:00 97.9 94 18 114/69 95 08/31/16 21:00 Nasal Cannula 2.0 08/29/16 15:47 21 Intake and Output 08/31/16 08/31/16 09/01/16 15:00 23:00 07:00 Intake Total 740 ml 840 ml 1215 ml Output Total 1052 ml 640 ml 995 ml Balance -312 ml 200 ml 220 ml Results Result Diagram: 09/01/16 0555 09/01/16 0555 Results 24 hrs Laboratory Tests Test 09/01/16 05:55 White Blood Count 14.1 #H Red Blood Count 2.86 L Hemoglobin 8.4 L Hematocrit 25.5 L Mean Corpuscular Volume 89.2 Mean Corpuscular Hemoglobin 29.4 Mean Corpuscular Hemoglobin Concent 32.9 Red Cell Distribution Width 13.1 Platelet Count 448 H Mean Platelet Volume 8.6 Neutrophils % 75.4 Lymphocytes % 12.4 L Monocytes % 9.1 Eosinophils % 1.7 Basophils % 0.3 Nucleated Red Blood Cells % 0.0 Neutrophils # 10.7 H Lymphocytes # 1.8 Monocytes # 1.3 H Eosinophils # 0.2 Basophils # 0.0 Nucleated Red Blood Cells # 0.0 Sodium Level 132 L Potassium Level 3.8 Chloride Level 102 Carbon Dioxide Level 26 Anion Gap 8 Blood Urea Nitrogen 10 Creatinine 0.70 Glucose Level 109 Calcium Level 7.6 L Phosphorus Level 3.1 Magnesium Level 1.5 L Medications Medications Current Medications IV Flush (NS 10 ml) 10 ml PRN PRN IV IV PROTOCOL; Start 08/20/16 at 19:30 Ondansetron HCl (Zofran Inj) 4 mg Q6H PRN IV NAUSEA; Start 08/20/16 at 21:30 Pantoprazole 40 mg 40 mg BID@06,18 IV Last administered on 09/01/16 05:52; Admin Dose 40 MG; Start 08/21/16 at 06:00 Acetaminophen (Ofirmev 1000mg/ 100ml Iv) 100 ml @ 400 mls/hr Q6H PRN IVPB PAIN LEVEL 1-3 Last administered on 08/28/16 20:11; Admin Dose 400 MLS/HR; Start 08/25/16 at 10:30 Lorazepam (Ativan) 0.5 mg Q8H PRN IV AGITATION/ANXIETY; Start 08/25/16 at 13:00 Morphine Sulfate (morphine) 1 mg Q3H PRN IV PAIN LEVEL 4-7 Last administered on 08/29/16 09:51; Admin Dose 1 MG; Start 08/25/16 at 13:00 Morphine Sulfate 2 mg 2 mg Q3H PRN IV PAIN LEVEL 7-10 Last administered on 09/01 01:42; Admin Dose 2 MG; Start 08/25/16 at 13:00 Piperacillin Sod/ Tazobactam Sod (Zosyn 3.375gm/ 100 ml (Pmx)) 100 ml @ 200 mls /hr Q8 IVPB Last administered on 09/01/16 05:52; Admin Dose 200 MLS/HR; Start 08/26/16 at 14:00 Oxycodone/ Acetaminophen (Percocet (5/ 325)) 2 tab Q6H PRN PO PAIN Last administered on 08/31/16 18:59; Admin Dose 2 TAB; Start 08/28/16 at 01:07 Phenazopyridine HCl (Pyridium) 100 mg TID PO Last administered on 09/01/16 12: 47; Admin Dose 100 MG; Start 08/31/16 at 22:00 DIEGO CHEW NP Sep 01, 2016 13:07
--- NOTE | 2016-09-01 16:01 | PN ---
Date/Time of Note Date/Time of Note DATE: 09/01/16 TIME: 16:00 Assessment/Plan VTE Prophylaxis VTE Prophylaxis Intervention: SCD's Lines/Catheters [facility] PICC Line Central line still needed: Yes Urinary Cath still in place: No Assessment/Plan Chief Complaint/Hosp Course Chief Complaint/Hosp Course 1. Abdominal pain secondary to perforated gastric ulcer status post surgical repair Continue postsurgical care, diet as per surgery 2. Acute kidney injury Continue dialysis per nephrology, improving 3. Smoking history Advise smoking cessation 4. Substance abuse Toxicology is positive for amphetamines 5. SIRS reactive secondary to #1 Continue Zosyn, infectious disease physician has been consulted Follow-up CT of abdomen and pelvis with oral contrast 6. Resp Failure Extubated on 08/25/2016, continue breathing treatment Pulm on the case 7. Cul-de-sac fluid collection with possible abscess Status post successful CT guided pelvic abscess drainage and approximately 207 ml of purulent fluid was aspirated. Continue to monitor the drainage bag. Continue IV antibiotics 7. Hypokalemia, repleted We will continue monitor patient closely for recommendation management treatment as clinical course Prognosis good Continue TPN, advance diet as per surgery recommendation Problems: Subjective 24 Hr Interval Summary Free Text/Dictation No acute changes Denies any abdominal pain Tolerating diet Max assist with ambulation Exam/Review of Systems Vital Signs Vitals Vital Signs Date Time Temp Pulse Resp B/P Pulse Ox O2 Delivery O2 Flow Rate FiO2 09/01/16 08:00 97.9 94 18 114/69 95 08/31/16 21:00 Nasal Cannula 2.0 08/29/16 15:47 21 Intake and Output 08/31/16 08/31/16 09/01/16 15:00 23:00 07:00 Intake Total 740 ml 840 ml 1215 ml Output Total 1052 ml 640 ml 995 ml Balance -312 ml 200 ml 220 ml Exam General: The patient is well-developed, Not in acute distress. HEENT: Atraumatic, normocephalic. The pupils are equal and round . Neck: Supple with full range of motion. Chest: Normal expansion of the thorax during inspiration Lungs: Clear to auscultation bilaterally Heart: Normal S1-S2, Regular rhythm and rate. Abdomen: Soft , nontender, nondistended , bowel sounds are present. Surgical site is dry and clean, drain in place 2 Extremities: Normal to inspection, no edema no cyanosis Neurologic: Normal mental status,The patient is awake, alert and oriented . Results Result Diagram: 09/01/16 0555 09/01/16 0555 Results 24 hrs Laboratory Tests Test 09/01/16 05:55 White Blood Count 14.1 #H Red Blood Count 2.86 L Hemoglobin 8.4 L Hematocrit 25.5 L Mean Corpuscular Volume 89.2 Mean Corpuscular Hemoglobin 29.4 Mean Corpuscular Hemoglobin Concent 32.9 Red Cell Distribution Width 13.1 Platelet Count 448 H Mean Platelet Volume 8.6 Neutrophils % 75.4 Lymphocytes % 12.4 L Monocytes % 9.1 Eosinophils % 1.7 Basophils % 0.3 Nucleated Red Blood Cells % 0.0 Neutrophils # 10.7 H Lymphocytes # 1.8 Monocytes # 1.3 H Eosinophils # 0.2 Basophils # 0.0 Nucleated Red Blood Cells # 0.0 Sodium Level 132 L Potassium Level 3.8 Chloride Level 102 Carbon Dioxide Level 26 Anion Gap 8 Blood Urea Nitrogen 10 Creatinine 0.70 Glucose Level 109 Calcium Level 7.6 L Phosphorus Level 3.1 Magnesium Level 1.5 L Medications Medications Current Medications IV Flush (NS 10 ml) 10 ml PRN PRN IV IV PROTOCOL; Start 08/20/16 at 19:30 Ondansetron HCl (Zofran Inj) 4 mg Q6H PRN IV NAUSEA; Start 08/20/16 at 21:30 Pantoprazole 40 mg 40 mg BID@06,18 IV Last administered on 09/01/16 05:52; Admin Dose 40 MG; Start 08/21/16 at 06:00 Acetaminophen (Ofirmev 1000mg/ 100ml Iv) 100 ml @ 400 mls/hr Q6H PRN IVPB PAIN LEVEL 1-3 Last administered on 08/28/16 20:11; Admin Dose 400 MLS/HR; Start 08/25/16 at 10:30 Lorazepam (Ativan) 0.5 mg Q8H PRN IV AGITATION/ANXIETY; Start 08/25/16 at 13:00 Morphine Sulfate (morphine) 1 mg Q3H PRN IV PAIN LEVEL 4-7 Last administered on 08/29/16 09:51; Admin Dose 1 MG; Start 08/25/16 at 13:00 Morphine Sulfate 2 mg 2 mg Q3H PRN IV PAIN LEVEL 7-10 Last administered on 09/01 01:42; Admin Dose 2 MG; Start 08/25/16 at 13:00 Piperacillin Sod/ Tazobactam Sod (Zosyn 3.375gm/ 100 ml (Pmx)) 100 ml @ 200 mls /hr Q8 IVPB Last administered on 09/01/16 13:51; Admin Dose 200 MLS/HR; Start 08/26/16 at 14:00 Oxycodone/ Acetaminophen (Percocet (5/ 325)) 2 tab Q6H PRN PO PAIN Last administered on 08/31/16 18:59; Admin Dose 2 TAB; Start 08/28/16 at 01:07 Phenazopyridine HCl (Pyridium) 100 mg TID PO Last administered on 09/01/16 12: 47; Admin Dose 100 MG; Start 08/31/16 at 22:00 NAREN BURDEN MD Sep 01, 2016 16:01
[2016-09-01] MEDS ORDERED: MAGNESIUM SULFATE 2 GM/50 ML 50 ML IVPB SCH (17:00)
[2016-09-01] MEDS ORDERED: NA PHOSPHATE/BIPHOS 133 ML ENEMA PR PRN (18:00)
[2016-09-01] MEDS ORDERED: MAGNESIUM HYDROXIDE 30ML CUP PO PRN (18:00)
[2016-09-01 19:15] VITALS: BP 129/81; RESP 18
[2016-09-01] MEDS: DOCUSATE SODIUM 100 MG CAP PO SCH (20:50)
[2016-09-02] MEDS: OXYCODONE/ACETAMINOPHEN (5/325) TAB PO PRN ×2 (04:04→22:25)
[2016-09-02 05:52] LABS: ADD SCAN DIFF NO
[2016-09-02 06:09] LABS: BASOPHIL # 0.1 10^3/ul (0.0-0.1); BASOPHILS % 0.5 % (0.0-2.0); EOSINOPHILS # 0.3 10^3/ul (0.0-0.5); EOSINOPHILS % 2.4 % (0.0-7.0); HEMATOCRIT 26.4 % (42.0-52.0); HEMOGLOBIN 8.8 g/dl (14.0-18.0); LYMPHOCYTES # 1.9 10^3/ul (0.8-2.9); LYMPHOCYTES % 15.5 % (15.0-51.0); MEAN CORPUSCULAR HEMOGLOBIN 29.8 pg (29.0-33.0); MEAN CORPUSCULAR HGB CONC 33.3 g/dl (32.0-37.0); MEAN CORPUSCULAR VOLUME 89.5 fl (82.0-101.0); MEAN PLATELET VOLUME 8.7 fl (7.4-10.4); MONOCYTE # 1.2 10^3/ul (0.3-0.9); MONOCYTES % 9.7 % (0.0-11.0); NEUTROPHIL # 8.7 10^3/ul (1.6-7.5); NEUTROPHILS % 71.2 % (39.0-77.0); PLATELET COUNT 457 10^3/UL (140-415); RED BLOOD COUNT 2.95 10^6/ul (4.70-6.10); RED CELL DISTRIBUTION WIDTH 13.2 % (11.5-14.5); WHITE BLOOD COUNT 12.3 10^3/ul (4.8-10.8)
[2016-09-02] MEDS: PIPER-TAZO 3.375 GM IV (PMX) 100 ML IVPB SCH ×3 (06:13→22:16)
[2016-09-02] MEDS: PANTOPRAZOLE 40 MG INJ IV SCH ×2 (06:13→17:22)
[2016-09-02 06:25] LABS: POTASSIUM 3.8 mmol/L (3.5-5.1)
[2016-09-02 06:28] LABS: CREATININE 0.71 mg/dl (0.61-1.24)
[2016-09-02 06:29] LABS: CALCIUM 7.7 mg/dl (8.4-10.2)
[2016-09-02 07:45] VITALS: BP 105/70; RESP 18
[2016-09-02] MEDS: DOCUSATE SODIUM 100 MG CAP PO SCH ×2 (08:35→20:58)
[2016-09-02] MEDS: PHENAZOPYRIDINE 100 MG TAB PO SCH ×3 (08:35→20:57)
--- NOTE | 2016-09-02 09:55 | PN ---
DATE: 09/02/2016 SUBJECTIVE: The patient is stable. No acute events overnight. No fevers, chills, nausea, or vomit ing. No shortness of breath. OBJECTIVE: VITAL SIGNS: Blood pressure is 105/50, respirations 18, temperature 97.5. HEENT: Head is normocephalic. NECK: Supple. HEART: Regular rate. LUNGS: Show diminished breath sounds at the base. ABDOMEN: Soft, nontender to palpation, no rebound or guarding. EXTREMITIES: Negative for clubbing, cyanosis, no edema. DERMATOLOGIC: No rashes. MUSCULOSKELETAL: No joint effusions. NEUROLOGIC: No change in exam. MEDICATIONS: The patient's medications have been reviewed. LABORATORY DATA: Shows a BMP within normal limits. White count 12.3, hemoglobin 8.8, hematocrit 26 .4, platelet count is 457. ASSESSMENT AND PLAN: 1. Nonoliguric acute kidney injury on top of chronic kidney disease with previous baseline creatini ne of 0.9 mg/dL. Etiology of acute kidney injury is secondary to acute tubular necrosis. Renal fun ction has improved. Continue current treatment plan, supportive care, renally dose all medications. 2. Hyponatremia, etiology is multifactorial. Sodium levels have improved after discontinuing hyper tonic fluids. We will continue to monitor. 3. Hypomagnesemia. The patient is status post magnesium sulfate. Will continue to monitor. 4. Mineral bone disorder. Continue to monitor calcium and phosphorus levels. 5. Anemia. Continue to monitor hemoglobin and hematocrit levels. 6. Sepsis, status post shock. 7. Perforated gastric ulcer status post repair. 8. Abdominal abscess, status post drainage. 9. Nutrition. Will continue to advance diet. 10. History of polysubstance abuse. Dictated By: SILVIA HERNANDEZ/TOMMY Conf#: [id number] DID#: [id number]
--- NOTE | 2016-09-02 10:35 | PN ---
Date/Time of Note Date/Time of Note DATE: 09/02/16 TIME: 10:29 Assessment/Plan VTE Prophylaxis VTE Prophylaxis Intervention: SCD's Lines/Catheters IV [facility] Type (from [facility] PICC Line Central line still needed: Yes (IV abx for infection, bowel perforation, difficult IV access ) Urinary Cath still in place: No Assessment/Plan Assessment/Plan 1. Abdominal pain secondary to perforated gastric ulcer status post surgical repair Continue postsurgical care, diet advanced to soft diet , TPN has been discontinued 2. Post op Cul-de-sac fluid collection with possible abscess Status post successful CT guided pelvic abscess drainage and approximately 207 ml of purulent fluid was aspirated. Continue to monitor the drainage bag. - last 24 hr output 320cc, Continue IV antibiotics 3. Acute kidney injury- resolved, Nephrology has been following 4. SIRS reactive secondary to #1 Continue Zosyn, ID consulted 5. Acute Resp Failure 2/2 bowel perforation - Extubated on 08/25/2016, continue breathing treatment Pulm on the case 6. . Smoking history - Advise smoking cessation 7 . Substance abuse- Toxicology is positive for amphetamines GI prophylaxis; Protonix DVT prophylaxis: SCDs We will continue monitor patient closely for recommendation management treatment as clinical course Prognosis good Subjective 24 Hr Interval Summary Free Text/Dictation pain controlled, drainage catheter in - BP stable, Cr normal, drain output 320cc Exam/Review of Systems Vital Signs Vitals Vital Signs Date Time Temp Pulse Resp B/P Pulse Ox O2 Delivery O2 Flow Rate FiO2 09/02/16 07:45 97.5 72 18 105/70 99 09/01/16 21:00 Nasal Cannula 2.0 08/29/16 15:47 21 Intake and Output 09/01/16 09/01/16 09/02/16 15:00 23:00 07:00 Intake Total 440 ml 1930 ml 720 ml Output Total 550 ml 1400 ml 845 ml Balance -110 ml 530 ml -125 ml Exam HEENT: Head is normocephalic. NECK: Supple. HEART: Regular rate. LUNGS: Show diminished breath sounds at the base. ABDOMEN: Soft, nontender to palpation, no rebound or guarding. + drain catheter in place EXTREMITIES: Negative for clubbing, cyanosis, no edema. DERMATOLOGIC: No rashes. MUSCULOSKELETAL: No joint effusions. NEUROLOGIC: No change in exam. Results Result Diagram: 09/02/16 0510 09/02/16 0510 Results 24 hrs Laboratory Tests Test 09/02/16 05:10 White Blood Count 12.3 H Red Blood Count 2.95 L Hemoglobin 8.8 L Hematocrit 26.4 L Mean Corpuscular Volume 89.5 Mean Corpuscular Hemoglobin 29.8 Mean Corpuscular Hemoglobin Concent 33.3 Red Cell Distribution Width 13.2 Platelet Count 457 H Mean Platelet Volume 8.7 Neutrophils % 71.2 Lymphocytes % 15.5 Monocytes % 9.7 Eosinophils % 2.4 Basophils % 0.5 Nucleated Red Blood Cells % 0.0 Neutrophils # 8.7 H Lymphocytes # 1.9 Monocytes # 1.2 H Eosinophils # 0.3 Basophils # 0.1 Nucleated Red Blood Cells # 0.0 Sodium Level 138 Potassium Level 3.8 Chloride Level 103 Carbon Dioxide Level 30 Anion Gap 9 Blood Urea Nitrogen 10 Creatinine 0.71 Glucose Level 105 Calcium Level 7.7 L Medications Medications Current Medications IV Flush (NS 10 ml) 10 ml PRN PRN IV IV PROTOCOL; Start 08/20/16 at 19:30 Ondansetron HCl (Zofran Inj) 4 mg Q6H PRN IV NAUSEA; Start 08/20/16 at 21:30 Pantoprazole 40 mg 40 mg BID@06,18 IV Last administered on 09/02/16 06:13; Admin Dose 40 MG; Start 08/21/16 at 06:00 Acetaminophen (Ofirmev 1000mg/ 100ml Iv) 100 ml @ 400 mls/hr Q6H PRN IVPB PAIN LEVEL 1-3 Last administered on 08/28/16 20:11; Admin Dose 400 MLS/HR; Start 08/25/16 at 10:30 Lorazepam (Ativan) 0.5 mg Q8H PRN IV AGITATION/ANXIETY; Start 08/25/16 at 13:00 Morphine Sulfate (morphine) 1 mg Q3H PRN IV PAIN LEVEL 4-7 Last administered on 08/29/16 09:51; Admin Dose 1 MG; Start 08/25/16 at 13:00 Morphine Sulfate 2 mg 2 mg Q3H PRN IV PAIN LEVEL 7-10 Last administered on 09/01 01:42; Admin Dose 2 MG; Start 08/25/16 at 13:00 Piperacillin Sod/ Tazobactam Sod (Zosyn 3.375gm/ 100 ml (Pmx)) 100 ml @ 200 mls /hr Q8 IVPB Last administered on 09/02/16 06:13; Admin Dose 200 MLS/HR; Start 08/26/16 at 14:00 Oxycodone/ Acetaminophen (Percocet (5/ 325)) 2 tab Q6H PRN PO PAIN Last administered on 09/02/16 04:04; Admin Dose 2 TAB; Start 08/28/16 at 01:07 Phenazopyridine HCl (Pyridium) 100 mg TID PO Last administered on 09/02/16 08: 35; Admin Dose 100 MG; Start 08/31/16 at 22:00 Docusate Sodium (Colace) 100 mg BID PO Last administered on 09/02/16 08:35; Admin Dose 100 MG; Start 09/01/16 at 21:00 Magnesium Hydroxide (Milk Of Mag) 30 ml DAILY PRN PO CONSTIPATION Last administered on 09/01/16 18:21; Admin Dose 30 ML; Start 09/01/16 at 18:00 Sodium Biphosphate/ Sodium Phosphate (Fleet Enema) 133 ml DAILY PRN [place] CONSTIPATION; Start 09/01/16 at 18:00 LISET ANDERSON MD Sep 02, 2016 10:35
--- NOTE | 2016-09-02 12:59 | CONS ---
Date/Time of Note Date/Time of Note DATE: 09/02/16 TIME: 12:58 Assessment/Plan Assessment/Plan Chief Complaint/Hosp Course SUBJECTIVE: No acute changes. No fevers. Tolerates diet, nad MICROBIOLOGY: Peritoneal fluid culture on admission grew alpha hemolytic strep species and Streptococcus agalactiae group B. Endotracheal aspirate grew Staphylococcus aureus. ANTIMICROBIALS: Zosyn. INDWELLINGS: The patient has PICC, abd drainage catheter PHYSICAL EXAMINATION: GENERAL: Well-developed, well-nourished, middle-aged man who is alert , in no distress. HEENT: Head atraumatic, normocephalic. Sclerae anicteric. Buccal mucosa pink. NECK: Supple. CHEST: Rise symmetrical. Breath sounds clear. HEART: S1, S2. ABDOMEN: Soft, bowel sounds present. EXTREMITIES: Without cyanosis. ASSESSMENT: 1. Status post perforated peptic ulcer repair, exploratory laparotomy on 2016. 2. Resolving leukocytosis 2 to intra-abdominal abscess, s/p CT guided aspiration 3. Status post postoperative respiratory failure and renal failure. 4. History of substance abuse. PLAN: The patient remains stable, wbc continue to decrease, continue abx, f/u surgical rec-s DW staff/pt Problems: Consultation Date/Type/Reason Admit Date/Time Aug 19, 2016 at 18:21 Initial Consult Date 08/21/16 Type of Consultation: ID Exam/Review of Systems Vital Signs Vitals Vital Signs Date Time Temp Pulse Resp B/P Pulse Ox O2 Delivery O2 Flow Rate FiO2 09/02/16 07:45 97.5 72 18 105/70 99 09/02/16 07:30 Nasal Cannula 2.0 08/29/16 15:47 21 Intake and Output 09/01/16 09/01/16 09/02/16 15:00 23:00 07:00 Intake Total 440 ml 1930 ml 720 ml Output Total 550 ml 1400 ml 845 ml Balance -110 ml 530 ml -125 ml Results Result Diagram: 09/02/16 0510 09/02/16 0510 Results 24 hrs Laboratory Tests Test 09/02/16 05:10 White Blood Count 12.3 H Red Blood Count 2.95 L Hemoglobin 8.8 L Hematocrit 26.4 L Mean Corpuscular Volume 89.5 Mean Corpuscular Hemoglobin 29.8 Mean Corpuscular Hemoglobin Concent 33.3 Red Cell Distribution Width 13.2 Platelet Count 457 H Mean Platelet Volume 8.7 Neutrophils % 71.2 Lymphocytes % 15.5 Monocytes % 9.7 Eosinophils % 2.4 Basophils % 0.5 Nucleated Red Blood Cells % 0.0 Neutrophils # 8.7 H Lymphocytes # 1.9 Monocytes # 1.2 H Eosinophils # 0.3 Basophils # 0.1 Nucleated Red Blood Cells # 0.0 Sodium Level 138 Potassium Level 3.8 Chloride Level 103 Carbon Dioxide Level 30 Anion Gap 9 Blood Urea Nitrogen 10 Creatinine 0.71 Glucose Level 105 Calcium Level 7.7 L Medications Medications Current Medications IV Flush (NS 10 ml) 10 ml PRN PRN IV IV PROTOCOL; Start 08/20/16 at 19:30 Ondansetron HCl (Zofran Inj) 4 mg Q6H PRN IV NAUSEA; Start 08/20/16 at 21:30 Pantoprazole 40 mg 40 mg BID@06,18 IV Last administered on 09/02/16 06:13; Admin Dose 40 MG; Start 08/21/16 at 06:00 Acetaminophen (Ofirmev 1000mg/ 100ml Iv) 100 ml @ 400 mls/hr Q6H PRN IVPB PAIN LEVEL 1-3 Last administered on 08/28/16 20:11; Admin Dose 400 MLS/HR; Start 08/25/16 at 10:30 Lorazepam (Ativan) 0.5 mg Q8H PRN IV AGITATION/ANXIETY; Start 08/25/16 at 13:00 Morphine Sulfate (morphine) 1 mg Q3H PRN IV PAIN LEVEL 4-7 Last administered on 08/29/16 09:51; Admin Dose 1 MG; Start 08/25/16 at 13:00 Morphine Sulfate 2 mg 2 mg Q3H PRN IV PAIN LEVEL 7-10 Last administered on 09/01 01:42; Admin Dose 2 MG; Start 08/25/16 at 13:00 Piperacillin Sod/ Tazobactam Sod (Zosyn 3.375gm/ 100 ml (Pmx)) 100 ml @ 200 mls /hr Q8 IVPB Last administered on 09/02/16 06:13; Admin Dose 200 MLS/HR; Start 08/26/16 at 14:00 Oxycodone/ Acetaminophen (Percocet (5/ 325)) 2 tab Q6H PRN PO PAIN Last administered on 09/02/16 04:04; Admin Dose 2 TAB; Start 08/28/16 at 01:07 Phenazopyridine HCl (Pyridium) 100 mg TID PO Last administered on 09/02/16 08: 35; Admin Dose 100 MG; Start 08/31/16 at 22:00 Docusate Sodium (Colace) 100 mg BID PO Last administered on 09/02/16 08:35; Admin Dose 100 MG; Start 09/01/16 at 21:00 Magnesium Hydroxide (Milk Of Mag) 30 ml DAILY PRN PO CONSTIPATION Last administered on 09/01/16 18:21; Admin Dose 30 ML; Start 09/01/16 at 18:00 Sodium Biphosphate/ Sodium Phosphate (Fleet Enema) 133 ml DAILY PRN [place] CONSTIPATION; Start 09/01/16 at 18:00 DIEGO CHEW NP Sep 02, 2016 12:59
--- NOTE | 2016-09-02 13:48 | PN ---
DATE: 09/02/2016 Postoperative day #13. The patient continues to improve. He remains afebrile and has full p.o. tico erance. His abdominal examination is benign. The KARISSA drainage is serous. The CT drain is draining approximately 30 mL of seropurulent material. LABORATORY DATA: The patient's hematocrit is 26.4. His white count has come down to 12,300. IMPRESSION: Continued improvement. PLAN Tomorrow, I will remove the KARISSA drain. The patient can be discharged home with the pigtail cat heter and p.o. antibiotics and outpatient followup. Dictated By: TIFFANI ALCANTAR/TOMMY Conf#: [id number] DID#: [id number]
[2016-09-02 20:26] VITALS: BP 138/87; RESP 20
[2016-09-03 05:45] LABS: ADD SCAN DIFF NO
[2016-09-03 05:58] LABS: BASOPHIL # 0.1 10^3/ul (0.0-0.1); BASOPHILS % 0.9 % (0.0-2.0); EOSINOPHILS # 0.4 10^3/ul (0.0-0.5); EOSINOPHILS % 3.2 % (0.0-7.0); HEMOGLOBIN 8.3 g/dl (14.0-18.0); LYMPHOCYTES # 2.6 10^3/ul (0.8-2.9); LYMPHOCYTES % 22.8 % (15.0-51.0); MEAN CORPUSCULAR HEMOGLOBIN 29.7 pg (29.0-33.0); MEAN CORPUSCULAR HGB CONC 33.2 g/dl (32.0-37.0); MEAN CORPUSCULAR VOLUME 89.6 fl (82.0-101.0); MEAN PLATELET VOLUME 8.6 fl (7.4-10.4); MONOCYTES % 8.8 % (0.0-11.0); NEUTROPHIL # 7.2 10^3/ul (1.6-7.5); NEUTROPHILS % 63.5 % (39.0-77.0); PLATELET COUNT 427 10^3/UL (140-415); RED BLOOD COUNT 2.79 10^6/ul (4.70-6.10); RED CELL DISTRIBUTION WIDTH 13.2 % (11.5-14.5); WHITE BLOOD COUNT 11.4 10^3/ul (4.8-10.8)
[2016-09-03 06:02] LABS: POTASSIUM 3.8 mmol/L (3.5-5.1)
[2016-09-03 06:04] LABS: CREATININE 0.66 mg/dl (0.61-1.24)
[2016-09-03] MEDS: PIPER-TAZO 3.375 GM IV (PMX) 100 ML IVPB SCH ×2 (06:04→13:18)
[2016-09-03 06:05] LABS: CALCIUM 7.7 mg/dl (8.4-10.2)
[2016-09-03] MEDS: PANTOPRAZOLE 40 MG INJ IV SCH (06:07)
[2016-09-03 08:02] VITALS: BP 119/73; RESP 16
--- NOTE | 2016-09-03 08:05 | PN ---
DATE: 09/03/2016 Postoperative day #14. The patient remains afebrile throughout. His KARISSA drainage is entirely serous. The pigtail catheter drain is draining only 30 mL. PHYSICAL EXAMINATION: ABDOMEN: Soft and nontender. The incision is clean. LABORATORY DATA: The patient's white count has come down to 11,400. His hematocrit is stable at 25 . IMPRESSION: Excellent and full recovery. PLAN: On today's postoperative visit the KARISSA drain was removed. Two-thirds of the skin chance will be removed as well. PLAN: The patient is surgically cleared for discharge home today with p.o. antibiotics. He will ne ed a long-term antiulcer regimen. I will see the patient in followup in 1 week for final staple rem oval, as well as for removal of the pigtail catheter. Dictated By: TIFFANI ALCANTAR/TOMMY Conf#: [id number] DID#: [id number]
--- NOTE | 2016-09-03 08:52 | PN ---
DATE: 09/03/2016 SUBJECTIVE: The patient is clinically improving. No acute events overnight. No hemoptysis, hemate mesis, or hematochezia. OBJECTIVE: VITAL SIGNS: Blood pressure 138/87, respirations 20, pulse 96, temperature 98.8. HEENT: Head is normocephalic. NECK: Supple. HEART: Regular rate. LUNGS: Show diminished breath sounds at the base. ABDOMEN: Soft, nontender to palpation. No rebound or guarding. EXTREMITIES: Negative for clubbing, cyanosis, no edema. DERMATOLOGIC: No rashes. MUSCULOSKELETAL: No joint effusions. NEUROLOGIC: No change in exam. MEDICATIONS: The patient's medications have been reviewed. LABORATORY DATA: Shows sodium 135, potassium 3.8, BUN 9, creatinine 0.66. White count 7.4, hemoglo bin 8.3, hematocrit 25.0, platelet count is 427. ASSESSMENT AND PLAN: 1. Nonoliguric acute kidney injury with a previous baseline creatinine of 0.9 mg/dL. Etiology of a cute kidney injury is secondary to acute tubular necrosis. Renal functions improved. 2. Hypernatremia. Etiology is multifactorial. Sodium levels have improved. Will continue to roberto tor. 3. Hypomagnesemia, resolved. Continue to monitor. 4. Mineral bone disorder. Continue to monitor calcium and phosphorus levels. 5. Anemia. Continue to monitor hemoglobin and hematocrit levels. 6. Sepsis, status post shock. 7. Perforated gastric ulcer, status post repair. 8. Abdominal abscesses drainage. 9. History of polysubstance abuse. Please note will sign off. Please reconsult as needed. Dictated By: SILVIA HERNANDEZ/TOMMY Conf#: [id number] DID#: [id number]
[2016-09-03] MEDS: PHENAZOPYRIDINE 100 MG TAB PO SCH ×2 (09:38→13:18)
[2016-09-03] MEDS: DOCUSATE SODIUM 100 MG CAP PO SCH (09:38)
[2016-09-03] MEDS: OXYCODONE/ACETAMINOPHEN (5/325) TAB PO PRN ×2 (09:38→18:08)
--- NOTE | 2016-09-03 13:36 | PDOCDIS ---
Discharge Instructions CONDITION Patient Condition: Good HOME CARE INSTRUCTIONS: Special Diet: soft low oscar/chol ACTIVITY: Activity Restrictions: Slowly Increase Activity Rest between Activity Avoid heavy lifting (Do not lift any objects heavier than 15 lbs x 4 weeks ) NAREN BURDEN MD Sep 03, 2016 13:36
[2016-09-03] MEDS ORDERED: Oxycodone/Acetamin (5/325) PO (13:43)
[2016-09-03] MEDS ORDERED: CIPR500T4 PO (13:43)
[2016-09-03] MEDS ORDERED: DOCU-216 PO (13:43)
[2016-09-03] MEDS ORDERED: PANT40TA4 PO (13:43)
[2016-09-03] MEDS ORDERED: METR500T PO (13:43)
--- NOTE | 2016-09-03 15:37 | DS ---
DATE OF ADMISSION: 08/19/2016 DATE OF DISCHARGE: 09/03/2016 CONSULTANTS: 1. Dr. Webb. 2. Dr. North. 3. Dr. Stringer. 4. Dr. Benito Ruiz. 5. Dr. Bin Goodman. 6. Dr. Cory Corado. PROCEDURES: 1. Hemodialysis. 2. Exploratory laparotomy. 3. Oversewed perforated antral ulcer and placement of a drain. 4. Right femoral dual lumen . 5. CT-guided pelvic abscess drainage. DIAGNOSES: 1. Perforated gastric ulcer, status post surgical repair. 2. Acute renal insufficiency, status post dialysis. 3. Smoking history. 4. History of substance abuse. 5. Sepsis secondary to gastric ulcer. 6. Respiratory failure, extubated on 08/25/2016. There is a cul-de-sac fluid collection with abdom inal abscess, status post successful CT-guided pelvic abscess drainage. 7. Hypokalemia, made replete. 8. Anemia. 9. Hypomagnesemia. HOSPITAL COURSE: This is a 36-year-old gentleman with a past medical history of marijuana and other substance abuse, smoking, questionable cirrhosis, prior ascites, who was seen and evaluated at [facility] secondary to a complaint of having epigastric pain. He stated the pain has been radiat ing around his abdomen, chest and back, and has been going on for a couple of weeks accompanied with nausea and questionable bloody vomiting. Denies having any lower GI bleeding. When he presented t o an outside hospital CT scan of the abdomen and pelvis was performed that shows signs of pancreatit is. His lipase was elevated, as well as there was a finding of minimal diverticulosis with ascites and the stomach was distended with fluid. As per ER physician at [facility], the patient was cleared for transferring the patient to [facility] secondary to insurance purposes . Although unfortunately when the patient arrived to [facility] after evaluation by general surgery, the patient was found to have a perforated duodenal ulcer. The patient was take n to the OR for intermediate exploratory laparotomy secondary to pneumoperitoneum with peritonitis a nd also a perforated antral ulcer, with placement of a drain and right femoral dual lumen cath eter placement. The patient was admitted to the ICU, was started on broad spectrum IV antibiotics. He was intubated. He has continued to be evaluated by the splitter hand, general surgery, medical team, and he was seen and evaluated by nephrology secondary to acute renal failure with creatinines of 3.73 and 4.93. The patient was placed on dialysis and was continued on breathing treatments, adilene t management by the splitter hand and continued to get hemodialysis. His creatinine started to norm laurita on 08/27/2016 and it became 1.16 and he was continued to be monitored. His dialysis catheter was removed as soon as his creatinine normalized. He was eventually extubated on 08/25/2016 and was continued on breathing treatments and was transferred to the telemetry floor and eventually was tra nsferred to med/surg. He was found to have leukocytosis. CT of the abdomen and pelvis was obtained which showed a cul-de-sac fluid collection with possible abscess. Interventional radiology was con sulted. The patient had a successful CT-guided pelvic abscess drainage and approximately 207 mL of purulent fluid was aspirated. The patient was continued on IV antibiotics as per infectious disease . Today the patient has been seen and evaluated by the splitter hand, nephrology and infectious dis ease, along with general surgery. His drain/KARISSA tube was removed and he continues to have the cul-de -sac drain, which will remain in place for the next week, until he is followed up by general surgery . At this time the patient is medically stable to be discharged home. LABORATORY: Sodium 135, potassium 3.8, chloride 102, bicarbonate 9, creatinine 0.66, glucose 97, ca lcium 7.7. WBC 11.4, hemoglobin 8.3, hematocrit 25.0, platelets 427. CONDITION AT TIME OF DISCHARGE: Stable. Dictated By: NAREN LOPEZ/TOMMY Conf#: [id number] DID#: [id number]
--- NOTE | 2016-09-03 15:46 | PN ---
DATE: 09/03/2016 SUBJECTIVE: No events overnight. The patient is lying comfortably in bed. Denies pain, discomfort . Right-sided intra-abdominal catheter was discontinued by surgeon. LABORATORY DATA: WBC today 11.4, no shift, no bands. BUN 9, creatinine 0.66. MICROBIOLOGY: Intra-abdominal fluid culture came back essentially negative. ANTIMICROBIALS: The patient remains on Zosyn. PHYSICAL EXAMINATION: GENERAL: Well-developed, middle-aged man who is alert, in no distress. HEENT: Head atraumatic, normocephalic. Sclerae anicteric. Buccal mucosa dry. NECK: Supple, trachea midline. CHEST: Rise symmetrical. Breath sounds clear. HEART: S1, S2. ABDOMEN: Soft, bowel sounds present. EXTREMITIES: No cyanosis or edema. ASSESSMENT: 1. Status post perforated peptic ulcer repair on 08/20/2016 complicated by intra-abdominal fluid co llection, status post CT-guided aspiration. 2. Systemic inflammatory response syndrome, resolving. 3. History of substance abuse. PLAN: The patient remains stable. White blood cell count tracing down. Anticipate discharge on or al Cipro and Flagyl for 7 to 10 more days. Follow up with surgery as an outpatient. Dictated By: DIEGO CHEW SUPERVISOR BRIAR SHOP for JACK HUFFMAN MD NI/NTS Conf#: [id number] DID#: [id number]
[2016-09-03] MEDS ORDERED: PANTOPRAZOLE (EC) 40 MG TAB PO SCH (18:00)
== END 2016-09-03 19:25 | disposition home health service (06) | DRG 329 ==
LOC: MS2 18:21 → TEL 08-20 17:15 → ICU 08-20 22:00 → TEL 08-26 17:40 → MS2 08-31 15:20
PROVIDERS: ADMIT Family Medicine; ATTEND Family Medicine
PROC: 02H633Z Insertion of Infusion Device into Right Atrium, Percutaneous Approach (ICD-10-PCS; 2016-08-20)
PROC: B244YZZ Ultrasonography of Right Heart using Other Contrast (ICD-10-PCS; 2016-08-20)
PROC: 0DU907Z Supplement Duodenum with Autologous Tissue Substitute, Open Approach (ICD-10-PCS; principal; 2016-08-20 19:30)
PROC: 5A1955Z Respiratory Ventilation, Greater than 96 Consecutive Hours (ICD-10-PCS; 2016-08-21)
PROC: 5A1D60Z (ICD-10-PCS; 2016-08-21)
PROC: 30233N1 Transfusion of Nonautologous Red Blood Cells into Peripheral Vein, Percutaneous Approach (ICD-10-PCS; 2016-08-23)
PROC: 0J9C30Z Drainage of Pelvic Region Subcutaneous Tissue and Fascia with Drainage Device, Percutaneous Approach (ICD-10-PCS; 2016-08-31)
DX: K25.1 Acute gastric ulcer with perforation (principal); A41.9 Sepsis, unspecified organism; N17.0 Acute kidney failure with tubular necrosis; G92 Toxic encephalopathy; J95.821 Acute postprocedural respiratory failure; K85.90 Acute pancreatitis without necrosis or infection, unspecified; T81.12XA Postprocedural septic shock, initial encounter; E87.2 Acidosis; K68.11 Postprocedural retroperitoneal abscess; E87.1 Hypo-osmolality and hyponatremia; E87.5 Hyperkalemia; F19.10 Other psychoactive substance abuse, uncomplicated; E83.51 Hypocalcemia; E83.39 Other disorders of phosphorus metabolism; D64.9 Anemia, unspecified; E87.6 Hypokalemia; F17.210 Nicotine dependence, cigarettes, uncomplicated; E83.42 Hypomagnesemia; F15.10 Other stimulant abuse, uncomplicated; F14.10 Cocaine abuse, uncomplicated; Y83.8 Other surgical procedures as the cause of abnormal reaction of the patient, or of later complication, without mention of misadventure at the time of the procedure; Y92.230 Patient room in hospital as the place of occurrence of the external cause; K57.30 Diverticulosis of large intestine without perforation or abscess without bleeding
CPT/HCPCS: 36430; 36569; 36600; 71010; 74000; 74176; 74178; 75989; 76775; 76937; 77012; 80048; 80053; 80061; 80306; 80307; 81001; 81003; 82043; 82550; 82553; 82803; 83036; 83605; 83690; 83735; 84100; 84145; 84155; 84300; 84436; 84479; 84484; 85025; 85610; 85730; 86703; 86704; 86709; 86803; 86850; 86900; 86901; 86920; 87040; 87070; 87075; 87081; 87086; 87340; 90935; 92610; 94002; 94003; 94770; 97162; J1940; C1750; C9113; J0131; J0330; J0690; J1644; J2250; J2270; J2370; J2543; J2997; J3010; J3411; J3475; J3480; J7030; J7040; J7042; J7060; J7070; P9016; P9047; Q9967

== ENCOUNTER 2016-11-05 11:21 | Day surgery (SDC) | payer OTHER ==
[2016-08-31 15:29] VITALS: PULSE 99
[~2016-11-05] VITALS: Ht 177.8 cm; Wt 105.7 kg
[~2016-11-05 11:21] MED LIST changes: +CIPR500T4 PO; -DESFLURANE 15 MIN ONE; +DOCU-216 PO; +METR500T PO; +Oxycodone/Acetamin (5/325) PO; +PANT40TA4 PO
[2016-11-05 12:39] VITALS: Ht 177.8 cm; Wt 105.7 kg
[2016-11-05 13:32] VITALS: BP 126/82; RESP 18
[2016-11-05] MEDS ORDERED: PROPOFOL 40 ML ONE (13:56)
[2016-11-05 14:11] VITALS: BP 114/73; RESP 20
--- NOTE | 2016-11-05 14:15 | GILP ---
DATE OF PROCEDURE: NAME OF PROCEDURE: Esophagogastroduodenoscopy and biopsy. SURGEON: Lesli Ugarte MD PREOPERATIVE DIAGNOSIS: Abdominal pain. POSTOPERATIVE DIAGNOSES: 1. Bile reflux gastritis. 2. Gastric mucosal biopsies were taken for Helicobacter pylori test. INDICATION FOR THE PROCEDURE: Mr. Ismael Goldman is a 36-year-old male patient who had upper abdomin al pain, not responding to therapy. The patient has a history of a perforated peptic ulcer. The pa tient was scheduled for endoscopy for further evaluation. The procedure and possible complications were well explained to the patient. He understood and cons ented to the procedure. DESCRIPTION OF PROCEDURE: Under the influence of anesthesia the gastroscope was carefully introduce d into the esophagus and under direct vision it was advanced to the stomach and through the pylorus, into the duodenal bulb and descending duodenum. FINDINGS: ESOPHAGUS: The mucosa was normal. STOMACH: The patient had bile reflux gastritis. Gastric mucosal biopsies were taken for H. pylori test. DUODENUM: Normal. He tolerated the procedure very well and there was no complication from the procedure. At the end o f the procedure he was awake with stable vital signs and he was discharged home to the care of his [facility]. IMPRESSION: 1. Bile reflux gastritis. 2. Gastric mucosal biopsies were taken for Helicobacter pylori test. PLAN: 1. Continue pantoprazole. 2. Add Carafate 1 g p.o. t.i.d. a.c. 3. Await for H. pylori test report. Dictated By: LESLI SHARMA/TOMMY Conf#: [id number] DID#: [id number]
[2016-11-05 14:23] VITALS: BP 126/82; PULSE 77; RESP 20
--- NOTE | 2016-11-10 12:04 | CONS ---
DATE OF ADMISSION: 11/05/2016 DATE OF CONSULTATION: TYPE OF CONSULTATION: Preoperative gastroenterology. Dear Dr. Garcia: I thank you very much for this kind referral. HISTORY OF PRESENT ILLNESS: Mr. Ismael Goldman is a 36-year-old male patient who has been referred t o me for further evaluation of abdominal pain. The patient was recently admitted to the hospital wi th perforated gastric ulcer. He has undergone surgery. He is on pantoprazole. He still complains of upper abdominal pain. He does not have any nausea or vomiting. He is not taking any nonsteroida l anti-inflammatory agents. There is no history of gallstones. He does not have any fever, chills, or jaundice. There is no history of liver disease. He denies any change in the bowel habit. Ther e is no past history of inflammatory bowel disease or colon neoplasm. He is not a hypertensive or d iabetic. He does not have any heart disease or lung problem. There is no history of kidney disease . He had acute renal failure during the hospital stay from which he has recovered. He is status po st appendectomy. SOCIAL HISTORY: He used to smoke, drink alcohol, and abuse drugs. Now he has stopped all of them. ALLERGIES: THERE IS NO HISTORY OF SIGNIFICANT DRUG ALLERGY. MEDICATIONS: Pantoprazole. PHYSICAL EXAMINATION: GENERAL: He is 5 feet 9 inches tall and he weighs 214 pounds. HEART: Examination of the heart reveals normal first and second heart sounds. LUNGS: Clear. ABDOMEN: Soft without any distention. Liver and spleen are not palpable. There are no masses. Th ere is no focal tenderness. Normal bowel sounds are heard. CENTRAL NERVOUS SYSTEM: Does not reveal any focal neurological deficit. IMPRESSION: 1. Upper abdominal pain. 2. Status post surgery for perforated gastric ulcer. 3. Status post appendectomy. 4. History of drug abuse in the past. PLAN: 1. Pantoprazole 40 mg p.o. q.a.m. 2. Endoscopy for further evaluation. 3. Because of the history of drug abuse, which make him resistant to narcotics, and obesity with a short thick neck, he needs monitored anesthesia care for the procedure. The procedure and possible complications are well explained to the patient. He understands and cons ents to the procedure. I thank you once again. With warmest personal regards, Dictated By: LESLI SHARMA/TOMMY Conf#: [id number] [facility]#: [id number] CC: LESLI DE LEÓN MD;*EndCC*
== END 2016-11-05 14:31 | disposition home or self-care (01) ==
LOC: GIL 11:21
PROVIDERS: ATTEND Internal Medicine Gastroenterology
DX: K29.60 Other gastritis without bleeding (principal)
CPT/HCPCS: 43239; 87081; Z7610